=== PATIENT | male | born 1980 | race Two or more races ===

== ENCOUNTER 2023-05-23 14:20 | Inpatient (IN) | payer OTHER, SELFPAY ==
[2023-05-23 14:43] VITALS: BP 166/102; PULSE 71; RESP 20; TEMP 36.5; O2SAT 97
[2023-05-23 17:46] VITALS: BP 167/92; PULSE 72; RESP 18; TEMP 36.2; O2SAT 97
--- NOTE | 2023-05-23 18:06 | HO.PM.IMCN ---
History of Present Illness Data of Consult Service Date: 05/23/23 Requesting physician: Arsen Montano Primary Care Provider: Unknown Physician HPI Reason for consult: medical h&p 42-year-old male with history of lot-mudrwtn-xwivzgiau type 2 diabetes, hypertension, mild intermittent asthma, chronic low back pain with radiculopathy, and polysubstance abuse admitted to Psychiatry with consult placed to Hospital Medicine for medical H&P. He is reporting pain in the right hip which he states is chronic radiating from the low back. Denies any radiation into the distal lower extremity. No associated weakness, paresthesias, saddle anesthesia, bowel/bladder dysfunction. He does smoke 1 pack of cigarettes on a daily basis and is in inhaled cocaine and heroin user. Denies having ever used IV drugs. Well at [facility] ED, tox screen positive for opiates, fentanyl, cocaine, THC. Hematology studies unremarkable. Potassium was slightly elevated at 5.8 (5.5 upper limit of normal), but renal function was normal. EKG showed normal sinus rhythm, rate [address]/T-wave abnormality. Review of Systems Review of Systems: General: No fevers, malaise, unintentional weight loss HEENT: No blurred vision, diplopia. No sore throat, nasal congestion, rhinorrhea, sinus pain, ear pain Cardiovascular: No chest pain, palpitations, or leg edema Respiratory: No shortness of breath, wheezing, cough GI: No abdominal pain, nausea, vomiting, diarrhea, constipation, melena, hematochezia : No dysuria, hematuria, increased urinary frequency, decreased urinary output MSK: No myalgia, back pain. +hip pain Neuro: No headaches, weakness, paresthesias Skin: No rashes or lesions [facility] Medical History Asthma Chronic low back pain Cigarette smoker Hypertension Non-insulin dependent type 2 diabetes mellitus Polysubstance abuse Social History Advance Directives: No Advance Directives Information Provided: No Meds Allergies Allergy/AdvReac Type Severity Reaction Status Date / Time No Known Allergies Allergy Verified 05/23/23 16:43 Active Medications: Current Medications Acetaminophen (Acetaminophen 325 Mg Tablet) 650 mg PO Q6H PRN PRN Reason: Headache/Pain Mild Scale (1-3) Al Hydroxide/Mg Hydroxide (Magnesium Hydrox/Alum Hydrox 30 Ml Oral.Susp) 30 ml PO Q6H PRN PRN Reason: Heartburn/Nausea Amlodipine Besylate (Amlodipine Besylate 10 Mg Tablet) 10 mg PO BEDTIME CALLIE; Protocol Bupropion HCl (Bupropion Hcl 100 Mg Tablet) 100 mg PO BID@0800,1500 [facility] Dextrose (Dextrose 50 % 25 Gm/50 Ml Syringe) 25 gm IVPUSH Q15M PRN; Protocol PRN Reason: per Hypoglycemia Standing Ord. Gabapentin (Gabapentin 300 Mg Capsule) 300 mg PO TID [facility] Glucose (Glucose Gel 15 Gm Gel..Gram.) 15 gm PO Q15M PRN; Protocol PRN Reason: per Hypoglycemia Standing Ord. Hydroxyzine HCl (Hydroxyzine Hcl 50 Mg Tablet) 50 mg PO Q6H PRN PRN Reason: Anxiety Insulin Human Lispro (Insulin Lispro 100 Unit/Ml 3 Ml Vial) 0 unit SUBCUT QIDACHS [facility]; Protocol Magnesium Hydroxide (Milk Of Magnesia 30 Ml Oral.Susp) 30 ml PO DAILY PRN PRN Reason: Constipation Metformin HCl (Metformin Hcl 500 Mg Tablet) 500 mg PO BIDWM [facility] Omeprazole (Omeprazole 40 Mg Capsule.Dr) 40 mg PO DAILY@0630 [facility] Trazodone HCl (Trazodone Hcl 50 Mg Tablet) 50 mg PO BEDTIME MRX1 PRN PRN Reason: Insomnia Trimethoprim/Sulfamethoxazole (Sulfamethox/Trimeth 800/160 Tablet) 1 tab PO BID [facility] Home Medications Medication Instructions Recorded Confirmed Last Taken Type amlodipine 5 mg tablet 10 mg PO DAILY 05/23/23 05/23/23 05/22/23 20:27 History chlorthalidone 25 mg tablet 25 mg PO DAILY 05/23/23 05/23/23 05/23/23 08:52 History gabapentin 300 mg capsule 300 mg PO TID 05/23/23 05/23/23 05/23/23 08:52 History metformin 500 mg tablet 500 mg PO BID 05/23/23 05/23/23 05/23/23 08:52 History Physical Exam Vital Signs and Narrative: Vital Signs: Last Vital Signs Temp 97.2 F 05/23/23 17:46 Pulse 72 05/23/23 17:46 Resp 18 05/23/23 17:46 BP 167/92 H 05/23/23 17:46 Pulse Ox 97 05/23/23 17:46 O2 Del Method Room Air 05/23/23 17:46 Constitutional - Awake and Alert, No apparent distress Eyes - PERRLA, EOMI Cardiovascular - S1S2, RRR, No edema Respiratory - Normal lung expansion, Normal respiratory effort, No respiratory distress, CTA bilaterally Gastrointestinal - NT / ND; +BS; No rebound or guarding Extremities - no calf tenderness bilaterally, no swelling Musculoskeletal - Normal inspection, normal ROM Skin - Warm/Dry Neurological - Alert & oriented x3, CN II-XII in tact, 5/ strength BUE and BLE Psychological - Appropriate affect Assessment and Plan (1) Routine medical exam: Status: Acute Plan 42-year-old male with history of ers-nbyoatb-biooxzyig type 2 diabetes, hypertension, mild intermittent asthma, chronic low back pain with radiculopathy, and polysubstance abuse admitted to Psychiatry with consult placed to Hospital Medicine for medical H&P. #Mood disorder -plan per psychiatry #Polysubstance abuse with opiate overdose -plan per psychiatry -No focal neuro deficits on exam, patient a&ox3 but does not recall events just prior to OD #HTN -Continue amlodipine PM, chlorthalidone 25mg am #Chronic LBP -radiates to right hip. -Continue gabapentin. Tylenol prn, lidocaine patches # xdf-iknsgyp-ggyojstet type 2 diabetes -POC glucose -recommend diabetic diet, consult on this -check A1c -continue metformin, Humalog on sliding scale for hyperglycemia Thank you for allowing me to participate in this consult. Signing off at this time. Please do not hesitate to call for further questions. Time Spent With Patient Time: Total time managing care of this patient today ____ minutes.
[2023-05-23 18:32] VITALS: BMI 31.6
[2023-05-23] MEDS: metFORMIN HCl 500 MG TABLET PO (18:43)
--- NOTE | 2023-05-23 19:01 | PC.ADMIT ---
Floyd Nevarez arrived to the unit at 1430, he signed conditional voluntary, upon approach he is calm and pleasant, he reports he does not recall events that led to hospitalization. He reports that when he is under pressure he tends to utilize Sniff heroine. He reports that all he remembers was a light and a voice that asked him Do you accept Ricardo Anil as your savior. Floyd is currently endorsing anxiety and depression, when asked if he had any thoughts of wanting to hurt self stated No, verbalized to look for staff if thoughts occur. Floyd is a diabetic, history of hypertension, he currently resides at a sober home, he reports [facility] has services [facility].
[2023-05-23 20:15] VITALS: BP 165/97; PULSE 66; RESP 16; TEMP 36.7; O2SAT 97
[2023-05-23] MEDS: amLODIPine Besylate 10 MG TABLET PO (20:35)
[2023-05-23] MEDS: Gabapentin 300 MG CAPSULE PO (20:35)
[2023-05-23] MEDS: Sulfamethox/Trimeth 800/160 TABLET 1 TAB PO (20:35)
[2023-05-24] MEDS: Acetaminophen 325 MG TABLET 650 MG PO ×3 (03:45→20:02)
[2023-05-24] MEDS: Omeprazole 40 MG CAPSULE.DR PO (06:10)
[2023-05-24] MEDS: metFORMIN HCl 500 MG TABLET PO ×2 (08:19→17:02)
[2023-05-24 08:20] VITALS: BP 162/90; PULSE 68; RESP 18; TEMP 36.1; O2SAT 98
[2023-05-24] MEDS: Sulfamethox/Trimeth 800/160 TABLET 1 TAB PO ×2 (08:20→21:31)
[2023-05-24] MEDS: Gabapentin 300 MG CAPSULE PO ×3 (08:20→21:31)
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
[2023-05-24] MEDS: Nicotine Polacrilex 2 MG GUM 4 MG BUCCAL (13:00)
[2023-05-24] MEDS: Nicotine 21 MG PATCH.TD24 TRANSDERMA (13:00)
--- NOTE | 2023-05-24 19:38 | PC.NURSE ---
Patient c/o pain with a golf ball sized lump under the skin in his right armpit. Patient said that it is painful; and he has a history of cysts that needed to be opened up and then take antibiotics. Dr. Hassan, technical communication teacher doctor, notified and non urgent consult to be ordered. Patient afebrile.
--- NOTE | 2023-05-24 20:48 | PM.EVENT ---
Event Note Date of Service: 05/24/23 Event Note: Patient with a history of recurrent axillary cysts/abscesses that also occurred in the perirectal area requiring antibiotics and incision and drainage historically tells me that he has had a large mass that is rapidly enlarging in the right axilla that started several days ago while at [facility] ED. Due to the increase in size, he was started on Bactrim which has been continued on M5. Despite this, he states this continues to enlarge and is very warm and painful. He denies any active drainage. He has been afebrile and vitals are stable. Unclear if this history is hidradenitis as sounds consistent, but no evidence of scarring in the axilla on exam. Recommend continuing bactim x 7 days and adding keflex 500mg qid. Strongly recommend warm compresses frequently throughout the day. CBC, CRP, ESR ordered. Will also place consult to general surgery for further management. Thank you for allowing me to participate in this consult. Signing off at this time. Please do not hesitate to call for further questions. Time Spent With Patient Time: Total time managing care of this patient today ____ minutes.
[2023-05-24 21:30] VITALS: BP 153/99; PULSE 97; RESP 17; TEMP 36.7
[2023-05-24] MEDS: cephALEXin 500 MG CAPSULE PO (21:31)
[2023-05-24] MEDS: amLODIPine Besylate 10 MG TABLET PO (21:32)
[2023-05-25] MEDS: cephALEXin 500 MG CAPSULE PO ×4 (04:18→20:40)
[2023-05-25 07:00] VITALS: BMI 31.8
[2023-05-25 07:59] LABS: MANUAL DIFF FLAG NO
[2023-05-25 08:03] LABS: Basophils Percent Auto 0.5 % (0-2); Eosinophils Absolute Auto 0.2 X10*3/uL (0.0-0.4); Hematocrit 45.7 % (42.0-52.0); Hemoglobin 15.6 g/dl (14.0-18.0); Imm Gran Abs Auto 0.04 X10*3/uL (0.00-0.03); Imm Gran Pct Auto 0.5 % (0.0-0.4); Lymphocytes Absolute Auto 1.7 X10*3/uL (1.2-4.9); Lymphocytes Percent Auto 19.6 % (20-40); Mean Corpuscular HGB Conc 34.1 g/dl (31.0-36.0); Mean Corpuscular Hemoglobin 29.4 pg (27.0-33.0); Mean Corpuscular Volume 86.1 fL (80.0-98.0); Mean Platelet Volume 10.7 fL (9.4-12.4); Monocytes Absolute Auto 0.6 X10*3/uL (0.1-1.2); Monocytes Percent Auto 7.3 % (2-11); Neutrophils Absolute Auto 6.1 x10*3/uL (2.0-8.3); Neutrophils Percent Auto 70.1 % (45-73); Platelet Count 213 X10*3/uL (160-400); Red Blood Count 5.31 X10*6/uL (4.60-5.80); Red Cell Distribution Width 13.9 % (11.0-16.0); White Blood Count 8.7 X10*3/uL (4.8-10.8)
[2023-05-25] MEDS: Sulfamethox/Trimeth 800/160 TABLET 1 TAB PO ×2 (08:25→20:40)
[2023-05-25] MEDS: Omeprazole 40 MG CAPSULE.DR PO (08:25)
[2023-05-25] MEDS: metFORMIN HCl 500 MG TABLET PO ×2 (08:26→16:40)
[2023-05-25] MEDS: Gabapentin 300 MG CAPSULE PO ×3 (08:26→20:40)
[2023-05-25 08:30] VITALS: BP 154/95; PULSE 77; RESP 18; TEMP 36.5; O2SAT 97
--- NOTE | 2023-05-25 10:06 | HO.PSYCHPN ---
Subjective Subjective Date of Service: 05/25/23 Reason For Visit: F32.9, F11.20, F14.20 Interim History: Met with patient; discussed with team patient reports feeling a little irritable today due to some interactions with staff. Says it reminds him of being in residential. He said he was able to walk away but did feel triggered. He said the rules do not make sense and are not clear which he finds difficult to navigate. He thinks he is feeling a little better but says he is up and down. Tolerating medications well. Asked for clonidine which he says was helpful in the past Mental Status Exam Mental Status Exam Narrative: Pt is alert and oriented; behavior is cooperative, friendly and calm; patient is not in distress; dressed in casual attire with unkempt hair but adequate hygiene, tattooed arms; mood is described as I do not know and affect congruent; eye contact appropriate; Speech is normal rate, volume and prosody and not pressured; no psychomotor retardation present; thought process is organized and goal directed; Thought content is on tx; otherwise pertinent to relevant topics and without any delusional content, paranoid ideations or grandiosity; denies any SI/HI. There is no evidence of perceptual disturbance. Patients insight and judgment fair Diagnostics Vital Signs (24Hr): Vital Signs - 24 hr 05/24/23 21:30 05/25/23 08:30 Temperature 98.0 F 97.7 F Pulse Rate 97 77 Respiratory Rate 17 18 Blood Pressure 153/99 H 154/95 H Pulse Oximetry 97 Oxygen Delivery Method Room Air BMI result Body Mass Index 31.6 Labs 05/25/23 07:35 05/24/23 08:26 Labs: Laboratory Results - last 48 hr 05/23/23 05/23/23 05/24/23 18:25 20:23 08:19 WBC RBC Hgb Hct MCV MCH MCHC RDW Plt Count MPV Immature Gran % (Auto) Neut % (Auto) Lymph % (Auto) [place] % (Auto) Eos % (Auto) Baso % (Auto) Lymph # (Auto) [place] # (Auto) Eos # (Auto) Baso # (Auto) Abs Immat Gran (auto) Absolute Neuts (auto) Absolute Nucleated RBC Nucleated RBC % (auto) ESR Sodium Potassium Chloride Carbon Dioxide Anion Gap BUN Creatinine 1.09 Estim Creat Clear Calc 105.6 Estimated GFR > 60 POC Glucose 99 134 H Fasting Glucose Calcium Total Bilirubin AST ALT Alkaline Phosphatase C-Reactive Protein Total Protein Albumin Triglycerides Cholesterol LDL Cholesterol, Calc HDL Cholesterol Vitamin B12 Folate TSH Free T4 05/24/23 05/24/23 05/24/23 08:26 08:26 12:20 WBC RBC Hgb Hct MCV MCH MCHC RDW Plt Count MPV Immature Gran % (Auto) Neut % (Auto) Lymph % (Auto) [place] % (Auto) Eos % (Auto) Baso % (Auto) Lymph # (Auto) [place] # (Auto) Eos # (Auto) Baso # (Auto) Abs Immat Gran (auto) Absolute Neuts (auto) Absolute Nucleated RBC Nucleated RBC % (auto) ESR Sodium 139 Potassium 4.2 Chloride 95 L Carbon Dioxide 35 H Anion Gap 13 BUN 11 Creatinine 1.25 Estim Creat Clear Calc 92.0 Estimated GFR > 60 POC Glucose 120 H Fasting Glucose 89 Calcium 10.3 H Total Bilirubin 0.7 AST 14 ALT 16 Alkaline Phosphatase 98 C-Reactive Protein Total Protein 8.5 H Albumin 4.5 Triglycerides 135 Cholesterol 161 LDL Cholesterol, Calc 94 HDL Cholesterol 40 Vitamin B12 < 148 L Folate 13.9 TSH 1.56 Free T4 0.99 05/24/23 05/24/23 05/24/23 16:53 20:18 21:05 WBC 10.0 RBC 5.58 Hgb 16.6 Hct 48.6 MCV 87.1 MCH 29.7 MCHC 34.2 RDW 13.9 Plt Count 222 MPV 10.8 Immature Gran % (Auto) 0.5 H Neut % (Auto) 77.8 H Lymph % (Auto) 15.6 L [place] % (Auto) 5.0 Eos % (Auto) 0.8 Baso % (Auto) 0.3 Lymph # (Auto) 1.6 [place] # (Auto) 0.5 Eos # (Auto) 0.1 Baso # (Auto) 0.0 Abs Immat Gran (auto) 0.05 H Absolute Neuts (auto) 7.8 Absolute Nucleated RBC 0.000 Nucleated RBC % (auto) 0.0 ESR Sodium Potassium Chloride Carbon Dioxide Anion Gap BUN Creatinine Estim Creat Clear Calc Estimated GFR POC Glucose 93 127 H Fasting Glucose Calcium Total Bilirubin AST ALT Alkaline Phosphatase C-Reactive Protein Total Protein Albumin Triglycerides Cholesterol LDL Cholesterol, Calc HDL Cholesterol Vitamin B12 Folate TSH Free T4 05/24/23 05/24/23 05/25/23 21:05 21:05 07:35 WBC 8.7 RBC 5.31 Hgb 15.6 Hct 45.7 MCV 86.1 MCH 29.4 MCHC 34.1 RDW 13.9 Plt Count 213 MPV 10.7 Immature Gran % (Auto) 0.5 H Neut % (Auto) 70.1 Lymph % (Auto) 19.6 L [place] % (Auto) 7.3 Eos % (Auto) 2.0 Baso % (Auto) 0.5 Lymph # (Auto) 1.7 [place] # (Auto) 0.6 Eos # (Auto) 0.2 Baso # (Auto) 0.0 Abs Immat Gran (auto) 0.04 H Absolute Neuts (auto) 6.1 Absolute Nucleated RBC 0.000 Nucleated RBC % (auto) 0.0 ESR 13 Sodium Potassium Chloride Carbon Dioxide Anion Gap BUN Creatinine Estim Creat Clear Calc Estimated GFR POC Glucose Fasting Glucose Calcium Total Bilirubin AST ALT Alkaline Phosphatase C-Reactive Protein 2.87 H Total Protein Albumin Triglycerides Cholesterol LDL Cholesterol, Calc HDL Cholesterol Vitamin B12 Folate TSH Free T4 05/25/23 08:21 WBC RBC Hgb Hct MCV MCH MCHC RDW Plt Count MPV Immature Gran % (Auto) Neut % (Auto) Lymph % (Auto) [place] % (Auto) Eos % (Auto) Baso % (Auto) Lymph # (Auto) [place] # (Auto) Eos # (Auto) Baso # (Auto) Abs Immat Gran (auto) Absolute Neuts (auto) Absolute Nucleated RBC Nucleated RBC % (auto) ESR Sodium Potassium Chloride Carbon Dioxide Anion Gap BUN Creatinine Estim Creat Clear Calc Estimated GFR POC Glucose 146 H Fasting Glucose Calcium Total Bilirubin AST ALT Alkaline Phosphatase C-Reactive Protein Total Protein Albumin Triglycerides Cholesterol LDL Cholesterol, Calc HDL Cholesterol Vitamin B12 Folate TSH Free T4 Medications Medications Current Medications Acetaminophen (Acetaminophen 325 Mg Tablet) 650 mg PO Q6H PRN PRN Reason: Headache/Pain Mild Scale (1-3) Last Admin: 05/24/23 20:02 Dose: 650 mg Al Hydroxide/Mg Hydroxide (Magnesium Hydrox/Alum Hydrox 30 Ml Oral.Susp) 30 ml PO Q6H PRN PRN Reason: Heartburn/Nausea Amlodipine Besylate (Amlodipine Besylate 10 Mg Tablet) 10 mg PO BEDTIME CALLIE; Protocol Last Admin: 05/24/23 21:32 Dose: 10 mg Buprenorphine/Naloxone (Buprenorphine/Naloxone 2/0.5mg Film) 1 film SUBLINGUAL BID@0900,1300 [facility] Last Admin: 05/25/23 08:26 Dose: 1 film Bupropion HCl (Bupropion Hcl Xl 300 Mg Tab.Er.24h) 300 mg PO DAILY [facility] Last Admin: 05/25/23 08:25 Dose: 300 mg Cephalexin HCl (Cephalexin 500 Mg Capsule) 500 mg PO Q6H [facility] Last Admin: 05/25/23 08:26 Dose: 500 mg Dextrose (Dextrose 50 % 25 Gm/50 Ml Syringe) 25 gm IVPUSH Q15M PRN; Protocol PRN Reason: per Hypoglycemia Standing Ord. Gabapentin (Gabapentin 300 Mg Capsule) 300 mg PO TID [facility] Last Admin: 05/25/23 08:26 Dose: 300 mg Glucose (Glucose Gel 15 Gm Gel..Gram.) 15 gm PO Q15M PRN; Protocol PRN Reason: per Hypoglycemia Standing Ord. Hydroxyzine HCl (Hydroxyzine Hcl 50 Mg Tablet) 50 mg PO Q6H PRN PRN Reason: Anxiety Ibuprofen (Ibuprofen 400 Mg Tablet) 400 mg PO Q6H PRN PRN Reason: Pain, Moderate(Pain Scale 4-6) Last Admin: 05/25/23 01:13 Dose: 400 mg Insulin Human Lispro (Insulin Lispro 100 Unit/Ml 3 Ml Vial) 0 unit SUBCUT QIDACHS [facility]; Protocol Last Admin: 05/25/23 08:37 Dose: Not Given Magnesium Hydroxide (Milk Of Magnesia 30 Ml Oral.Susp) 30 ml PO DAILY PRN PRN Reason: Constipation Metformin HCl (Metformin Hcl 500 Mg Tablet) 500 mg PO BIDWM [facility] Last Admin: 05/25/23 08:26 Dose: 500 mg Nicotine (Nicotine 21 Mg Patch.Td24) 21 mg TRANSDERMA DAILY PRN PRN Reason: smoking cessation Last Admin: 05/24/23 13:00 Dose: 21 mg Nicotine Polacrilex (Nicotine Polacrilex 2 Mg Gum) 4 mg BUCCAL Q2H PRN PRN Reason: nicotine cravings Last Admin: 05/24/23 13:00 Dose: 4 mg Omeprazole (Omeprazole 40 Mg Capsule.Dr) 40 mg PO DAILY@0630 [facility] Last Admin: 05/25/23 08:25 Dose: 40 mg Trazodone HCl (Trazodone Hcl 50 Mg Tablet) 50 mg PO BEDTIME MRX1 PRN PRN Reason: Insomnia Trimethoprim/Sulfamethoxazole (Sulfamethox/Trimeth 800/160 Tablet) 1 tab PO BID CALLIE Stop: 05/30/23 09:01 Last Admin: 05/25/23 08:25 Dose: 1 tab Allergies Allergies Allergy/AdvReac Type Severity Reaction Status Date / Time No Known Allergies Allergy Verified 05/23/23 16:43 Assessment & Plan Assessment & Plan (1) MDD (major depressive disorder), recurrent episode, moderate: Status: Acute Code(s): F33.1 - Major depressive disorder, recurrent, moderate (2) PTSD (post-traumatic stress disorder): Status: Acute Code(s): F43.10 - Post-traumatic stress disorder, unspecified (3) Cocaine use disorder: Status: Acute Code(s): F14.10 - Cocaine abuse, uncomplicated (4) Opioid use disorder: Status: Acute Code(s): F11.90 - Opioid use, unspecified, uncomplicated Plan Patient is a 42-year-old male with history of depression, PTSD who presents for depression and SI. Patient wants help with depression and cravings for cocaine and heroin; SI resolved Hospital course: 05/25 patient stabilizing; no SI; tolerating medications. Talking about his feelings. Continue treatment; says Suboxone helpful. Plan: CV Q 15 minute checks Change Wellbutrin to extended release and increased to 300 mg daily Continue Suboxone 2/0.5 mg b.i.d. for cravings; patient feels the need for help with cravings and staying sober but is wanting to avoid getting overly addicted to Suboxone Continue other home medications which he has been taking regularly -patient hypertensive but he says it is only has he missed recent antihypertensive dose; will monitor Reviewed labs from [facility] and LFTs, CBC, BUN/creatinine within normal limits; mildly elevated potassium Patient educated on: diagnosis, medication risk/benefits and therapeutic strategies Informed Consent: understands Reason for continued inpatient stay Substantial Risk for: stable for discharge Time Spent With Patient Time: Total time managing care of this patient today ____ minutes.
[2023-05-25 16:29] VITALS: BP 147/97; PULSE 97; RESP 18; TEMP 36; O2SAT 99
[2023-05-25] MEDS: Nicotine Polacrilex 2 MG GUM 4 MG BUCCAL (19:15)
[2023-05-25] MEDS: amLODIPine Besylate 10 MG TABLET PO (20:45)
[2023-05-26] MEDS: cephALEXin 500 MG CAPSULE PO ×4 (03:50→20:30)
[2023-05-26 08:15] VITALS: BP 144/81; PULSE 95; RESP 16; TEMP 36.8; O2SAT 98
[2023-05-26] MEDS: metFORMIN HCl 500 MG TABLET PO ×2 (08:30→16:28)
[2023-05-26] MEDS: Gabapentin 300 MG CAPSULE PO ×3 (08:30→20:30)
[2023-05-26] MEDS: Omeprazole 40 MG CAPSULE.DR PO (08:30)
[2023-05-26] MEDS: Sulfamethox/Trimeth 800/160 TABLET 1 TAB PO ×2 (08:30→20:30)
[2023-05-26] MEDS: Nicotine 21 MG PATCH.TD24 TRANSDERMA (08:31)
--- NOTE | 2023-05-26 09:27 | HO.PSYCHPN ---
Subjective Subjective Date of Service: 05/26/23 Reason For Visit: F32.9, F11.20, F14.20 Interim History: Met with patient; discussed with team Patient reports depression is abating some, however he still quite anxious and struggling with lots of emotions. Patient tearful as he explains worries about coping once discharged, fearful about his recent overdose and not wanting it to be repeated. Feels he starting to get use to the medications and learning to utilize coping skills. Patient feels that groups have been helpful. Mental Status Exam Mental Status Exam Narrative: Pt is alert and oriented; behavior is cooperative, calm; patient is not in distress; dressed in casual attire with adequate hygiene, tattooed arms; mood is described as worried and affect congruent, intermittently tearful; eye contact appropriate; Speech is normal rate, volume and prosody and not pressured; no psychomotor retardation present; thought process is organized and goal directed; Thought content is on tx; otherwise pertinent to relevant topics and without any delusional content, paranoid ideations or grandiosity; denies any SI/HI. There is no evidence of perceptual disturbance. Patients insight and judgment fair Diagnostics Vital Signs (24Hr): Vital Signs - 24 hr 05/25/23 16:29 Temperature 96.8 F Pulse Rate 97 Respiratory Rate 18 Blood Pressure 147/97 H Pulse Oximetry 99 Oxygen Delivery Method Room Air BMI result Body Mass Index 31.8 Labs 05/25/23 07:35 05/24/23 08:26 Labs: Laboratory Results - last 48 hr 05/24/23 05/24/23 05/24/23 08:19 08:26 08:26 WBC RBC Hgb Hct MCV MCH MCHC RDW Plt Count MPV Immature Gran % (Auto) Neut % (Auto) Lymph % (Auto) [place] % (Auto) Eos % (Auto) Baso % (Auto) Lymph # (Auto) [place] # (Auto) Eos # (Auto) Baso # (Auto) Abs Immat Gran (auto) Absolute Neuts (auto) Absolute Nucleated RBC Nucleated RBC % (auto) ESR POC Glucose 134 H C-Reactive Protein Vitamin B12 < 148 L Folate 13.9 TSH 1.56 Free T4 0.99 05/24/23 05/24/23 05/24/23 12:20 16:53 20:18 WBC RBC Hgb Hct MCV MCH MCHC RDW Plt Count MPV Immature Gran % (Auto) Neut % (Auto) Lymph % (Auto) [place] % (Auto) Eos % (Auto) Baso % (Auto) Lymph # (Auto) [place] # (Auto) Eos # (Auto) Baso # (Auto) Abs Immat Gran (auto) Absolute Neuts (auto) Absolute Nucleated RBC Nucleated RBC % (auto) ESR POC Glucose 120 H 93 127 H C-Reactive Protein Vitamin B12 Folate TSH Free T4 05/24/23 05/24/23 05/24/23 21:05 21:05 21:05 WBC 10.0 RBC 5.58 Hgb 16.6 Hct 48.6 MCV 87.1 MCH 29.7 MCHC 34.2 RDW 13.9 Plt Count 222 MPV 10.8 Immature Gran % (Auto) 0.5 H Neut % (Auto) 77.8 H Lymph % (Auto) 15.6 L [place] % (Auto) 5.0 Eos % (Auto) 0.8 Baso % (Auto) 0.3 Lymph # (Auto) 1.6 [place] # (Auto) 0.5 Eos # (Auto) 0.1 Baso # (Auto) 0.0 Abs Immat Gran (auto) 0.05 H Absolute Neuts (auto) 7.8 Absolute Nucleated RBC 0.000 Nucleated RBC % (auto) 0.0 ESR 13 POC Glucose C-Reactive Protein 2.87 H Vitamin B12 Folate TSH Free T4 05/25/23 05/25/23 05/25/23 07:35 08:21 16:42 WBC 8.7 RBC 5.31 Hgb 15.6 Hct 45.7 MCV 86.1 MCH 29.4 MCHC 34.1 RDW 13.9 Plt Count 213 MPV 10.7 Immature Gran % (Auto) 0.5 H Neut % (Auto) 70.1 Lymph % (Auto) 19.6 L [place] % (Auto) 7.3 Eos % (Auto) 2.0 Baso % (Auto) 0.5 Lymph # (Auto) 1.7 [place] # (Auto) 0.6 Eos # (Auto) 0.2 Baso # (Auto) 0.0 Abs Immat Gran (auto) 0.04 H Absolute Neuts (auto) 6.1 Absolute Nucleated RBC 0.000 Nucleated RBC % (auto) 0.0 ESR POC Glucose 146 H 115 C-Reactive Protein Vitamin B12 Folate TSH Free T4 05/25/23 05/26/23 20:57 08:52 WBC RBC Hgb Hct MCV MCH MCHC RDW Plt Count MPV Immature Gran % (Auto) Neut % (Auto) Lymph % (Auto) [place] % (Auto) Eos % (Auto) Baso % (Auto) Lymph # (Auto) [place] # (Auto) Eos # (Auto) Baso # (Auto) Abs Immat Gran (auto) Absolute Neuts (auto) Absolute Nucleated RBC Nucleated RBC % (auto) ESR POC Glucose 167 H 138 H C-Reactive Protein Vitamin B12 Folate TSH Free T4 Medications Medications Current Medications Acetaminophen (Acetaminophen 325 Mg Tablet) 650 mg PO Q6H PRN PRN Reason: Headache/Pain Mild Scale (1-3) Last Admin: 05/24/23 20:02 Dose: 650 mg Al Hydroxide/Mg Hydroxide (Magnesium Hydrox/Alum Hydrox 30 Ml Oral.Susp) 30 ml PO Q6H PRN PRN Reason: Heartburn/Nausea Amlodipine Besylate (Amlodipine Besylate 10 Mg Tablet) 10 mg PO BEDTIME CALLIE; Protocol Last Admin: 05/25/23 20:45 Dose: 10 mg Buprenorphine/Naloxone (Buprenorphine/Naloxone 2/0.5mg Film) 1 film SUBLINGUAL BID@0900,1700 [facility] Last Admin: 05/26/23 08:30 Dose: 1 film Bupropion HCl (Bupropion Hcl Xl 300 Mg Tab.Er.24h) 300 mg PO DAILY [facility] Last Admin: 05/26/23 08:30 Dose: 300 mg Cephalexin HCl (Cephalexin 500 Mg Capsule) 500 mg PO Q6H [facility] Last Admin: 05/26/23 08:30 Dose: 500 mg Clonidine HCl (Clonidine Hcl 0.1 Mg Tablet) 0.1 mg PO Q4H PRN; Protocol PRN Reason: anxiety Dextrose (Dextrose 50 % 25 Gm/50 Ml Syringe) 25 gm IVPUSH Q15M PRN; Protocol PRN Reason: per Hypoglycemia Standing Ord. Gabapentin (Gabapentin 300 Mg Capsule) 300 mg PO TID [facility] Last Admin: 05/26/23 08:30 Dose: 300 mg Glucose (Glucose Gel 15 Gm Gel..Gram.) 15 gm PO Q15M PRN; Protocol PRN Reason: per Hypoglycemia Standing Ord. Hydroxyzine HCl (Hydroxyzine Hcl 50 Mg Tablet) 50 mg PO Q6H PRN PRN Reason: Anxiety Ibuprofen (Ibuprofen 400 Mg Tablet) 400 mg PO Q6H PRN PRN Reason: Pain, Moderate(Pain Scale 4-6) Last Admin: 05/25/23 20:47 Dose: 400 mg Insulin Human Lispro (Insulin Lispro 100 Unit/Ml 3 Ml Vial) 0 unit SUBCUT QIDACHS [facility]; Protocol Last Admin: 05/26/23 08:59 Dose: Not Given Magnesium Hydroxide (Milk Of Magnesia 30 Ml Oral.Susp) 30 ml PO DAILY PRN PRN Reason: Constipation Last Admin: 05/25/23 13:00 Dose: 30 ml Metformin HCl (Metformin Hcl 500 Mg Tablet) 500 mg PO BIDWM [facility] Last Admin: 05/26/23 08:30 Dose: 500 mg Nicotine (Nicotine 21 Mg Patch.Td24) 21 mg TRANSDERMA DAILY PRN PRN Reason: smoking cessation Last Admin: 05/26/23 08:31 Dose: 21 mg Nicotine Polacrilex (Nicotine Polacrilex 2 Mg Gum) 4 mg BUCCAL Q2H PRN PRN Reason: nicotine cravings Last Admin: 05/25/23 19:15 Dose: 4 mg Omeprazole (Omeprazole 40 Mg Capsule.Dr) 40 mg PO DAILY@0630 [facility] Last Admin: 05/26/23 08:30 Dose: 40 mg Trazodone HCl (Trazodone Hcl 50 Mg Tablet) 50 mg PO BEDTIME MRX1 PRN PRN Reason: Insomnia Trimethoprim/Sulfamethoxazole (Sulfamethox/Trimeth 800/160 Tablet) 1 tab PO BID [facility] Stop: 05/30/23 09:01 Last Admin: 05/26/23 08:30 Dose: 1 tab Allergies Allergies Allergy/AdvReac Type Severity Reaction Status Date / Time No Known Allergies Allergy Verified 05/23/23 16:43 Assessment & Plan Assessment & Plan (1) MDD (major depressive disorder), recurrent episode, moderate: Status: Acute Code(s): F33.1 - Major depressive disorder, recurrent, moderate (2) PTSD (post-traumatic stress disorder): Status: Acute Code(s): F43.10 - Post-traumatic stress disorder, unspecified (3) Cocaine use disorder: Status: Acute Code(s): F14.10 - Cocaine abuse, uncomplicated (4) Opioid use disorder: Status: Acute Code(s): F11.90 - Opioid use, unspecified, uncomplicated Plan Patient is a 42-year-old male with history of depression, PTSD who presents for depression and SI. Patient wants help with depression and cravings for cocaine and heroin; SI resolved Hospital course: 05/25 patient stabilizing; no SI; tolerating medications. Talking about his feelings. Continue treatment; says Suboxone helpful. 05/26 patient reports depression is lessening however he still very anxious and worried about being able to cope post discharge; patient emotional and feeling a little overwhelmed by navigating his emotions. He is going to groups, forthcoming in interviews and trying to utilize coping skills that he is learning on the unit. At this time patient is at high risk for relapse and decompensation were he to be discharged. He should remain on the unit for further stabilization and possible medication management, considering increasing Wellbutrin. Will continue with Wellbutrin at current dose for now and consider whether not to increase after few days. Plan: CV Q 15 minute checks Change Wellbutrin to extended release and increased to 300 mg daily Continue Suboxone 2/0.5 mg b.i.d. for cravings; patient feels the need for help with cravings and staying sober but is wanting to avoid getting overly addicted to Suboxone Continue other home medications which he has been taking regularly -patient hypertensive but he says it is only has he missed recent antihypertensive dose; will monitor Reviewed labs from [facility] and LFTs, CBC, BUN/creatinine within normal limits; mildly elevated potassium Patient educated on: diagnosis, medication risk/benefits and therapeutic strategies Informed Consent: understands Reason for continued inpatient stay Substantial Risk for: rapid decompensation Time Spent With Patient Time: Total time managing care of this patient today ____ minutes.
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
[2023-05-26] MEDS: cloNIDine HCL 0.1 MG TABLET PO ×2 (12:15→23:12)
[2023-05-26 17:37] VITALS: BP 143/93; PULSE 115; RESP 18; TEMP 36.7; O2SAT 96
[2023-05-26] MEDS: Nicotine Polacrilex 2 MG GUM 4 MG BUCCAL (17:49)
[2023-05-26 20:20] VITALS: BP 140/88; PULSE 101; RESP 18; O2SAT 96
[2023-05-26] MEDS: amLODIPine Besylate 10 MG TABLET PO (20:31)
[2023-05-26 23:10] VITALS: BP 159/92; PULSE 88; RESP 20; O2SAT 97
[2023-05-27] MEDS: cephALEXin 500 MG CAPSULE PO ×4 (03:20→19:44)
[2023-05-27] MEDS: Omeprazole 40 MG CAPSULE.DR PO (06:43)
[2023-05-27] MEDS: Gabapentin 300 MG CAPSULE PO ×3 (08:24→19:43)
[2023-05-27] MEDS: metFORMIN HCl 500 MG TABLET PO ×2 (08:24→16:33)
[2023-05-27] MEDS: Sulfamethox/Trimeth 800/160 TABLET 1 TAB PO ×2 (08:24→19:43)
[2023-05-27 08:30] VITALS: BP 122/69; PULSE 89; RESP 18; TEMP 36.3; O2SAT 96
--- NOTE | 2023-05-27 10:06 | HO.PSYCHPN ---
Subjective Subjective Date of Service: 05/27/23 Reason For Visit: F32.9, F11.20, F14.20 Subjective Notes: Conditional Voluntary Healthcare Proxy: No Guardianship: No Medical Problems Affecting Mental Status: No Medication Compliance: Yes Side effects from medications: Yes (feels a bit geared up on wellbutrin making sleep a bit hard) Attending Groups: Intermittent Review of Systems Acute medical concerns: No has diabetes will check hba1c Medical Review of Systems: unchanged Mental Status Exam Mental Status Exam Patient Appearance: Well Grooomed and Appropriate Patient Orientation: Person, Place, Time and Situation Level of Consciousness: Awake and Appropriate Patient Behavior: Appropriate and Cooperative Mood Description: Calm Affect Description: Appropriate Patient Cognition Impaired: No Ability to Follow Directions: Good Speech Pattern: Clear Hallucinations: None Delusions: Not Present Thought Process: Intact Thought Content: positive for Intact Depressive Symptoms: Difficulty Sleeping Abnormal Motor Activity Signs and Symptoms: Restlessness Judgement: Good Diagnostics Vital Signs (24Hr): Vital Signs - 24 hr 05/26/23 17:37 05/26/23 20:20 05/26/23 23:10 Temperature 98.0 F Pulse Rate 115 H 101 H 88 Respiratory Rate 18 18 20 Blood Pressure 143/93 H 140/88 H 159/92 H Pulse Oximetry 96 96 97 Oxygen Delivery Method Room Air Room Air Room Air 05/27/23 08:30 Temperature 97.3 F Pulse Rate 89 Respiratory Rate 18 Blood Pressure 122/69 Pulse Oximetry 96 Oxygen Delivery Method Room Air BMI result Body Mass Index 31.8 Labs 05/25/23 07:35 05/24/23 08:26 Labs: Laboratory Results - last 48 hr 05/25/23 05/25/23 05/26/23 16:42 20:57 08:52 POC Glucose 115 167 H 138 H 05/26/23 05/26/23 05/26/23 11:51 15:17 19:59 POC Glucose 143 H 135 H 131 H 05/27/23 08:05 POC Glucose 160 H Medications Medications Current Medications Acetaminophen (Acetaminophen 325 Mg Tablet) 650 mg PO Q6H PRN PRN Reason: Headache/Pain Mild Scale (1-3) Last Admin: 05/24/23 20:02 Dose: 650 mg Al Hydroxide/Mg Hydroxide (Magnesium Hydrox/Alum Hydrox 30 Ml Oral.Susp) 30 ml PO Q6H PRN PRN Reason: Heartburn/Nausea Amlodipine Besylate (Amlodipine Besylate 10 Mg Tablet) 10 mg PO BEDTIME [facility]; Protocol Last Admin: 05/26/23 20:31 Dose: 10 mg Bisacodyl (Bisacodyl 5 Mg Tablet.Dr) 10 mg PO BEDTIME PRN PRN Reason: Constipation Buprenorphine/Naloxone (Buprenorphine/Naloxone 2/0.5mg Film) 1 film SUBLINGUAL BID@0900,1700 [facility] Last Admin: 05/27/23 08:24 Dose: 1 film Bupropion HCl (Bupropion Hcl Xl 300 Mg Tab.Er.24h) 300 mg PO DAILY [facility] Last Admin: 05/27/23 08:24 Dose: 300 mg Cephalexin HCl (Cephalexin 500 Mg Capsule) 500 mg PO Q6H [facility] Last Admin: 05/27/23 08:24 Dose: 500 mg Clonidine HCl (Clonidine Hcl 0.1 Mg Tablet) 0.1 mg PO Q4H PRN; Protocol PRN Reason: anxiety Last Admin: 05/26/23 23:12 Dose: 0.1 mg Dextrose (Dextrose 50 % 25 Gm/50 Ml Syringe) 25 gm IVPUSH Q15M PRN; Protocol PRN Reason: per Hypoglycemia Standing Ord. Docusate Sodium (Docusate Sodium 100 Mg Capsule) 100 mg PO BEDTIME PRN PRN Reason: Constipation Gabapentin (Gabapentin 300 Mg Capsule) 300 mg PO TID [facility] Last Admin: 05/27/23 08:24 Dose: 300 mg Glucose (Glucose Gel 15 Gm Gel..Gram.) 15 gm PO Q15M PRN; Protocol PRN Reason: per Hypoglycemia Standing Ord. Hydroxyzine HCl (Hydroxyzine Hcl 50 Mg Tablet) 50 mg PO Q6H PRN PRN Reason: Anxiety Ibuprofen (Ibuprofen 400 Mg Tablet) 400 mg PO Q6H PRN PRN Reason: Pain, Moderate(Pain Scale 4-6) Last Admin: 05/25/23 20:47 Dose: 400 mg Insulin Human Lispro (Insulin Lispro 100 Unit/Ml 3 Ml Vial) 0 unit SUBCUT QIDACHS [facility]; Protocol Last Admin: 05/27/23 08:29 Dose: 2 unit Magnesium Hydroxide (Milk Of Magnesia 30 Ml Oral.Susp) 30 ml PO DAILY PRN PRN Reason: Constipation Last Admin: 05/25/23 13:00 Dose: 30 ml Metformin HCl (Metformin Hcl 500 Mg Tablet) 500 mg PO BIDWM [facility] Last Admin: 05/27/23 08:24 Dose: 500 mg Nicotine (Nicotine 21 Mg Patch.Td24) 21 mg TRANSDERMA DAILY PRN PRN Reason: smoking cessation Last Admin: 05/26/23 08:31 Dose: 21 mg Nicotine Polacrilex (Nicotine Polacrilex 2 Mg Gum) 4 mg BUCCAL Q2H PRN PRN Reason: nicotine cravings Last Admin: 05/26/23 17:49 Dose: 4 mg Omeprazole (Omeprazole 40 Mg Capsule.Dr) 40 mg PO DAILY@0630 [facility] Last Admin: 05/27/23 06:43 Dose: 40 mg Trazodone HCl (Trazodone Hcl 50 Mg Tablet) 50 mg PO BEDTIME MRX1 PRN PRN Reason: Insomnia Trimethoprim/Sulfamethoxazole (Sulfamethox/Trimeth 800/160 Tablet) 1 tab PO BID [facility] Stop: 05/30/23 09:01 Last Admin: 05/27/23 08:24 Dose: 1 tab Allergies Allergies Allergy/AdvReac Type Severity Reaction Status Date / Time No Known Allergies Allergy Verified 05/23/23 16:43 Assessment & Plan Assessment & Plan (1) MDD (major depressive disorder), recurrent episode, moderate: Status: Acute Code(s): F33.1 - Major depressive disorder, recurrent, moderate (2) Cellulitis of right axilla: Status: Acute Code(s): L03.111 - Cellulitis of right axilla (3) Non-insulin dependent type 2 diabetes mellitus: Status: Acute Code(s): E11.9 - Type 2 diabetes mellitus without complications Assessment and Plan: check hba1c, Plan 42 year old male admitted to for MDD, SI, substance abuse with c/o painful right axillary swelling. May be infected epidermal inclusion cyst vs hidradenitis suppurativa. Either way, recommend continuing antibiotic therapy for now without I&D as he seems to be improving. There is a small amount of fluctuance of the axilla but this appears to be draining via the small wound opening. Dry sterile gauze applied which can be changed daily and as needed. Continue warm compresses. If there is no further improvement or he worsens, the area can be drained. Discussed diabetes mellitus and importance of tight blood sugar control in healing, prevention of worsening infection. Walkko addendum 05/27/23 Agree with the above plan. Continue antibiotics and local care. After the inflammation settles down, about 50% of these patients will have a persistent cyst that will need to be excised on an outpatient basis. Patient educated on: medication risk/benefits Informed Consent: understands Reason for continued inpatient stay Substantial Risk for: inability to function, rapid decompensation and med/psych decompensation Time Spent With Patient Time: Total time managing care of this patient today ____ minutes.
[2023-05-27] MEDS: Nicotine 21 MG PATCH.TD24 TRANSDERMA (13:00)
[2023-05-27] MEDS: Nicotine Polacrilex 2 MG GUM 4 MG BUCCAL ×3 (13:39→20:47)
[2023-05-27] MEDS: cloNIDine HCL 0.1 MG TABLET PO ×2 (14:10→19:43)
[2023-05-27 19:38] VITALS: BP 164/97; PULSE 103; TEMP 36.4
[2023-05-27] MEDS: amLODIPine Besylate 10 MG TABLET PO (19:43)
[2023-05-28] MEDS: cephALEXin 500 MG CAPSULE PO ×4 (03:08→20:03)
[2023-05-28] MEDS: Omeprazole 40 MG CAPSULE.DR PO (04:52)
[2023-05-28 08:00] VITALS: BP 113/59; PULSE 67; RESP 18; TEMP 36.7; O2SAT 97
[2023-05-28 08:01] LABS: Estimated Average Glucose 103 mg/dL; Hemoglobin A1c % 5.2 %
[2023-05-28] MEDS: buPROPion HCL 100 MG TABLET 200 MG PO (09:12)
[2023-05-28] MEDS: Gabapentin 300 MG CAPSULE PO ×3 (09:13→20:04)
[2023-05-28] MEDS: Sulfamethox/Trimeth 800/160 TABLET 1 TAB PO ×2 (09:13→20:04)
[2023-05-28] MEDS: metFORMIN HCl 500 MG TABLET PO ×2 (09:13→16:09)
--- NOTE | 2023-05-28 10:30 | HO.PSYCHPN ---
Subjective Subjective Date of Service: 05/28/23 Reason For Visit: F32.9, F11.20, F14.20 Subjective Notes: Conditional Voluntary Interim History: Pt reporting that would be suicidal if he is dced on monday- doesn't feel ready for dc- also co ongoing cravings and requested inc in suboxone- as he was started on lower dose- Medication Compliance: Yes Side effects from medications: No Attending Groups: Yes Review of Systems abscess healing- sugars in fair control Mental Status Exam Mental Status Exam Patient Appearance: Well Grooomed and Appropriate Patient Orientation: Person, Place, Time and Situation Level of Consciousness: Awake and Appropriate Patient Behavior: Appropriate and Cooperative Mood Description: Calm Affect Description: Appropriate Patient Cognition Impaired: No Ability to Follow Directions: Good Speech Pattern: Clear Hallucinations: None Delusions: Not Present Thought Process: Intact Thought Content: positive for Intact and positive for Suicidal Ideation Depressive Symptoms: Difficulty Sleeping Abnormal Motor Activity Signs and Symptoms: Restlessness Judgement: Good Diagnostics Vital Signs (24Hr): Vital Signs - 24 hr 05/27/23 19:38 Temperature 97.5 F Pulse Rate 103 H Blood Pressure 164/97 H BMI result Body Mass Index 31.8 Labs 05/25/23 07:35 05/24/23 08:26 Labs: Laboratory Results - last 48 hr 05/26/23 05/26/23 05/26/23 11:51 15:17 19:59 POC Glucose 143 H 135 H 131 H Estimat Average Glucose Hemoglobin A1c % 05/27/23 05/27/23 05/27/23 08:05 12:08 16:30 POC Glucose 160 H 125 H 138 H Estimat Average Glucose Hemoglobin A1c % 05/27/23 05/28/23 05/28/23 20:19 07:41 08:46 POC Glucose 118 H 99 Estimat Average Glucose 103 Hemoglobin A1c % 5.2 Medications Medications Current Medications Acetaminophen (Acetaminophen 325 Mg Tablet) 650 mg PO Q6H PRN PRN Reason: Headache/Pain Mild Scale (1-3) Last Admin: 05/24/23 20:02 Dose: 650 mg Al Hydroxide/Mg Hydroxide (Magnesium Hydrox/Alum Hydrox 30 Ml Oral.Susp) 30 ml PO Q6H PRN PRN Reason: Heartburn/Nausea Amlodipine Besylate (Amlodipine Besylate 10 Mg Tablet) 10 mg PO BEDTIME [facility]; Protocol Last Admin: 05/27/23 19:43 Dose: 10 mg Bisacodyl (Bisacodyl 5 Mg Tablet.Dr) 10 mg PO BEDTIME PRN PRN Reason: Constipation Buprenorphine/Naloxone (Buprenorphine/Naloxone 2/0.5mg Film) 1 film SUBLINGUAL BID [facility] Last Admin: 05/28/23 09:13 Dose: 1 film Bupropion HCl (Bupropion Hcl 100 Mg Tablet) 200 mg PO DAILY [facility] Last Admin: 05/28/23 09:12 Dose: 200 mg Cephalexin HCl (Cephalexin 500 Mg Capsule) 500 mg PO Q6H [facility] Last Admin: 05/28/23 09:13 Dose: 500 mg Clonidine HCl (Clonidine Hcl 0.1 Mg Tablet) 0.1 mg PO Q4H PRN; Protocol PRN Reason: anxiety Last Admin: 05/27/23 19:43 Dose: 0.1 mg Dextrose (Dextrose 50 % 25 Gm/50 Ml Syringe) 25 gm IVPUSH Q15M PRN; Protocol PRN Reason: per Hypoglycemia Standing Ord. Docusate Sodium (Docusate Sodium 100 Mg Capsule) 100 mg PO BEDTIME PRN PRN Reason: Constipation Gabapentin (Gabapentin 300 Mg Capsule) 300 mg PO TID [facility] Last Admin: 05/28/23 09:13 Dose: 300 mg Glucose (Glucose Gel 15 Gm Gel..Gram.) 15 gm PO Q15M PRN; Protocol PRN Reason: per Hypoglycemia Standing Ord. Hydroxyzine HCl (Hydroxyzine Hcl 50 Mg Tablet) 50 mg PO Q6H PRN PRN Reason: Anxiety Ibuprofen (Ibuprofen 400 Mg Tablet) 400 mg PO Q6H PRN PRN Reason: Pain, Moderate(Pain Scale 4-6) Last Admin: 05/28/23 01:01 Dose: 400 mg Insulin Human Lispro (Insulin Lispro 100 Unit/Ml 3 Ml Vial) 0 unit SUBCUT QIDACHS [facility]; Protocol Last Admin: 05/28/23 09:12 Dose: Not Given Magnesium Hydroxide (Milk Of Magnesia 30 Ml Oral.Susp) 30 ml PO DAILY PRN PRN Reason: Constipation Last Admin: 05/25/23 13:00 Dose: 30 ml Metformin HCl (Metformin Hcl 500 Mg Tablet) 500 mg PO BIDWM [facility] Last Admin: 05/28/23 09:13 Dose: 500 mg Nicotine (Nicotine 21 Mg Patch.Td24) 21 mg TRANSDERMA DAILY PRN PRN Reason: smoking cessation Last Admin: 05/27/23 13:00 Dose: 21 mg Nicotine Polacrilex (Nicotine Polacrilex 2 Mg Gum) 4 mg BUCCAL Q2H PRN PRN Reason: nicotine cravings Last Admin: 05/27/23 20:47 Dose: 4 mg Omeprazole (Omeprazole 40 Mg Capsule.Dr) 40 mg PO DAILY@0630 [facility] Last Admin: 05/28/23 04:52 Dose: 40 mg Trazodone HCl (Trazodone Hcl 50 Mg Tablet) 50 mg PO BEDTIME MRX1 PRN PRN Reason: Insomnia Last Admin: 05/28/23 01:01 Dose: 50 mg Trimethoprim/Sulfamethoxazole (Sulfamethox/Trimeth 800/160 Tablet) 1 tab PO BID [facility] Stop: 05/30/23 09:01 Last Admin: 05/28/23 09:13 Dose: 1 tab Allergies Allergies Allergy/AdvReac Type Severity Reaction Status Date / Time No Known Allergies Allergy Verified 05/23/23 16:43 Assessment & Plan Assessment & Plan (1) MDD (major depressive disorder), recurrent episode, moderate: Status: Acute Code(s): F33.1 - Major depressive disorder, recurrent, moderate (2) Cellulitis of right axilla: Status: Acute Code(s): L03.111 - Cellulitis of right axilla (3) Non-insulin dependent type 2 diabetes mellitus: Status: Acute Code(s): E11.9 - Type 2 diabetes mellitus without complications Assessment and Plan: check hba1c, Plan 42 year old male admitted to for MDD, SI, substance abuse with c/o painful right axillary swelling. May be infected epidermal inclusion cyst vs hidradenitis suppurativa. Either way, recommend continuing antibiotic therapy for now without I&D as he seems to be improving. There is a small amount of fluctuance of the axilla but this appears to be draining via the small wound opening. Dry sterile gauze applied which can be changed daily and as needed. Continue warm compresses. If there is no further improvement or he worsens, the area can be drained. Discussed diabetes mellitus and importance of tight blood sugar control in healing, prevention of worsening infection. Walkko addendum 05/27/23 Agree with the above plan. Continue antibiotics and local care. After the inflammation settles down, about 50% of these patients will have a persistent cyst that will need to be excised on an outpatient basis. 05/28 - patient inc si seems related to possible dc this monday- seems to be forming peer group and another patient mirroring each other on this presentation Patient educated on: therapeutic strategies Informed Consent: further education needed Reason for continued inpatient stay Substantial Risk for: harm to self, rapid decompensation and med/psych decompensation Time Spent With Patient Time: Total time managing care of this patient today ____ minutes.
[2023-05-28] MEDS: Nicotine Polacrilex 2 MG GUM 4 MG BUCCAL ×4 (11:40→21:14)
[2023-05-28] MEDS: Nicotine 21 MG PATCH.TD24 TRANSDERMA (11:40)
[2023-05-28] MEDS: cloNIDine HCL 0.1 MG TABLET PO ×2 (14:40→20:14)
[2023-05-28] MEDS: Buprenorphine/Naloxone 4/1 mg FILM 1 FILM SUBLINGUAL (17:03)
[2023-05-28 17:16] VITALS: BP 126/72; PULSE 91; RESP 16; TEMP 36.1; O2SAT 97
[2023-05-28] MEDS: amLODIPine Besylate 10 MG TABLET PO (20:02)
[2023-05-28] MEDS: hydrOXYzine HCL 50 MG TABLET PO (20:03)
[2023-05-29] MEDS: cephALEXin 500 MG CAPSULE PO ×4 (03:08→19:43)
[2023-05-29 06:00] VITALS: BP 101/54; PULSE 68; RESP 16; TEMP 36.2; O2SAT 97
[2023-05-29] MEDS: Omeprazole 40 MG CAPSULE.DR PO (06:12)
[2023-05-29] MEDS: Buprenorphine/Naloxone 4/1 mg FILM 1 FILM SUBLINGUAL ×2 (09:17→17:04)
[2023-05-29] MEDS: buPROPion HCL 100 MG TABLET 200 MG PO (09:19)
[2023-05-29] MEDS: Nicotine Polacrilex 2 MG GUM 4 MG BUCCAL ×4 (09:19→22:54)
[2023-05-29] MEDS: metFORMIN HCl 500 MG TABLET PO ×2 (09:20→17:04)
[2023-05-29] MEDS: Gabapentin 300 MG CAPSULE PO ×3 (09:20→19:44)
[2023-05-29] MEDS: Sulfamethox/Trimeth 800/160 TABLET 1 TAB PO ×2 (09:21→19:45)
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
[2023-05-29] MEDS: Nicotine 21 MG PATCH.TD24 TRANSDERMA (10:45)
[2023-05-29 13:05] VITALS: BP 156/94; PULSE 87
[2023-05-29] MEDS: cloNIDine HCL 0.1 MG TABLET PO ×3 (13:08→22:53)
[2023-05-29 16:30] VITALS: BP 122/67; PULSE 80; RESP 16; TEMP 36.2; O2SAT 98
[2023-05-29 17:37] LABS: Glucose, Whole Blood 123 mg/dL (60-115)
[2023-05-29] MEDS: amLODIPine Besylate 10 MG TABLET PO (19:44)
[2023-05-29 21:16] LABS: Glucose, Whole Blood 96 mg/dL (60-115)
[2023-05-30] MEDS: cephALEXin 500 MG CAPSULE PO ×4 (03:49→23:58)
[2023-05-30] MEDS: Omeprazole 40 MG CAPSULE.DR PO (06:46)
--- NOTE | 2023-05-30 07:28 | P.PNGS_ITS ---
Subjective Subjective Date of Service: 05/30/23 Patient reports: no new complaints, feels better and tolerating a regular diet Interval history: Pain in follow-up regarding his right axillary abscess. He denies any pain or drainage and notes that it is 100% improved. He otherwise denies additional problems with the exception of impending discharge that he does not feel he is ready for tomorrow. He is encouraged to discuss this concern with the staff. Physical Exam Vital Signs: Vital Signs: Last Vital Signs Temp 97.1 F 05/29/23 16:30 Pulse 80 05/29/23 16:30 Resp 16 05/29/23 16:30 BP 122/67 05/29/23 16:30 Pulse Ox 98 05/29/23 16:30 O2 Del Method Room Air 05/29/23 16:30 BMI result Body Mass Index 31.8 The patient is seen in room 509. He was resting but awake He is in no acute respiratory distress His right axilla soft with resolved induration. No fluctuance, erythema, tenderness is present. Overall, the abscess seems to have completely resolved Objective Data Active Medications Acetaminophen (Acetaminophen 325 Mg Tablet) 650 mg PO Q6H PRN PRN Reason: Headache/Pain Mild Scale (1-3) Last Admin: 05/24/23 20:02 Dose: 650 mg Documented By: MISBAH Al Hydroxide/Mg Hydroxide (Magnesium Hydrox/Alum Hydrox 30 Ml Oral.Susp) 30 ml PO Q6H PRN PRN Reason: Heartburn/Nausea Amlodipine Besylate (Amlodipine Besylate 10 Mg Tablet) 10 mg PO BEDTIME [facility]; Protocol Last Admin: 05/29/23 19:44 Dose: 10 mg Documented By: SHARIF Bisacodyl (Bisacodyl 5 Mg Tablet.Dr) 10 mg PO BEDTIME PRN PRN Reason: Constipation Buprenorphine/Naloxone (Buprenorphine/Naloxone 4/1 Mg Film) 1 film SUBLINGUAL BID@0900,1700 [facility] Last Admin: 05/29/23 17:04 Dose: 1 film Documented By: SHARIF Bupropion HCl (Bupropion Hcl 100 Mg Tablet) 200 mg PO DAILY [facility] Last Admin: 05/29/23 09:19 Dose: 200 mg Documented By: JADE Cephalexin HCl (Cephalexin 500 Mg Capsule) 500 mg PO Q6H [facility] Stop: 05/31/23 15:01 Last Admin: 05/30/23 03:49 Dose: 500 mg Documented By: BRANDONRINMichael Clonidine HCl (Clonidine Hcl 0.1 Mg Tablet) 0.1 mg PO Q4H PRN; Protocol PRN Reason: anxiety Last Admin: 05/29/23 22:53 Dose: 0.1 mg Documented By: SHARIF Dextrose (Dextrose 50 % 25 Gm/50 Ml Syringe) 25 gm IVPUSH Q15M PRN; Protocol PRN Reason: per Hypoglycemia Standing Ord. Docusate Sodium (Docusate Sodium 100 Mg Capsule) 100 mg PO BEDTIME PRN PRN Reason: Constipation Last Admin: 05/28/23 20:14 Dose: 100 mg Documented By: MALKA Gabapentin (Gabapentin 300 Mg Capsule) 300 mg PO TID [facility] Last Admin: 05/29/23 19:44 Dose: 300 mg Documented By: SHARIF Glucose (Glucose Gel 15 Gm Gel..Gram.) 15 gm PO Q15M PRN; Protocol PRN Reason: per Hypoglycemia Standing Ord. Hydroxyzine HCl (Hydroxyzine Hcl 50 Mg Tablet) 50 mg PO Q6H PRN PRN Reason: Anxiety Last Admin: 05/28/23 20:03 Dose: 50 mg Documented By: MALKA Ibuprofen (Ibuprofen 400 Mg Tablet) 400 mg PO Q6H PRN PRN Reason: Pain, Moderate(Pain Scale 4-6) Last Admin: 05/29/23 11:00 Dose: 400 mg Documented By: JADE Insulin Human Lispro (Insulin Lispro 100 Unit/Ml 3 Ml Vial) 0 unit SUBCUT [facility]; Protocol Last Admin: 05/29/23 22:02 Dose: Not Given Documented By: SHARIF Non-Admin Reason: No Insulin Coverage Magnesium Hydroxide (Milk Of Magnesia 30 Ml Oral.Susp) 30 ml PO DAILY PRN PRN Reason: Constipation Last Admin: 05/28/23 16:35 Dose: 30 ml Documented By: GENE Metformin HCl (Metformin Hcl 500 Mg Tablet) 500 mg PO BIDWM [facility] Last Admin: 05/29/23 17:04 Dose: 500 mg Documented By: SHARIF Nicotine (Nicotine 21 Mg Patch.Td24) 21 mg TRANSDERMA DAILY PRN PRN Reason: smoking cessation Last Admin: 05/29/23 10:45 Dose: 21 mg Documented By: JADE Nicotine Polacrilex (Nicotine Polacrilex 2 Mg Gum) 4 mg BUCCAL Q2H PRN PRN Reason: nicotine cravings Last Admin: 05/29/23 22:54 Dose: 4 mg Documented By: SHARIF Omeprazole (Omeprazole 40 Mg Capsule.) 40 mg PO DAILY@0630 [facility] Last Admin: 05/30/23 06:46 Dose: 40 mg Documented By: MORRINL Trazodone HCl (Trazodone Hcl 50 Mg Tablet) 50 mg PO BEDTIME MRX1 PRN PRN Reason: Insomnia Last Admin: 05/28/23 22:14 Dose: 50 mg Documented By: MARITZAWMICHAEL Trimethoprim/Sulfamethoxazole (Sulfamethox/Trimeth 800/160 Tablet) 1 tab PO BID [facility] Stop: 05/30/23 09:01 Last Admin: 05/29/23 19:45 Dose: 1 tab Documented By: SHARIF Labs 05/25/23 07:35 05/24/23 08:26 Labs: Laboratory Results - last 24 hr 05/29/23 05/29/23 05/29/23 09:15 12:31 17:27 POC Glucose 172 H 116 H 123 H 05/29/23 21:12 POC Glucose 96 Procedures Date of Service Date of Service: 05/30/23 Progress Note: A&P Assessment and plan (1) Cellulitis of right axilla: Status: Acute (2) Non-insulin dependent type 2 diabetes mellitus: Status: Acute (3) Opioid use disorder: Status: Acute (4) Cocaine use disorder: Status: Acute (5) PTSD (post-traumatic stress disorder): Status: Acute (6) MDD (major depressive disorder), recurrent episode, moderate: Status: Acute Plan The patient was provided with a business card with my phone up. Given his prior history of an infected sebaceous cyst in his left axilla the require definitive excision, I explained there is roughly a 50% chance of persisting cyst tissue that will need to be excised in about 6 weeks after the final inflammation has resolved. He is in agreement to follow up with me on an outpatient basis but again voiced concerns about being discharged in the next day or 2. Will sign off. Please call me if there are questions. Time Spent With Patient Time: Total time managing care of this patient today ____ minutes. Quality Stroke Does the patient have a stroke diagnosis?: No VTE Prior VTE?: No VTE Risk Level:: Surgical - low VTE Device Contraindication: Treatment Not Indicated VTE Drug Contraindication: Treatment Not Indicated
[2023-05-30 08:25] LABS: Glucose, Whole Blood 110 mg/dL (60-115)
[2023-05-30 09:12] VITALS: BP 115/65; PULSE 78; RESP 15; TEMP 37.2; O2SAT 97
[2023-05-30] MEDS: metFORMIN HCl 500 MG TABLET PO ×2 (09:13→17:29)
[2023-05-30] MEDS: Gabapentin 300 MG CAPSULE PO ×3 (09:13→23:58)
[2023-05-30] MEDS: Buprenorphine/Naloxone 4/1 mg FILM 1 FILM SUBLINGUAL ×2 (09:13→19:02)
[2023-05-30] MEDS: buPROPion HCL 100 MG TABLET 200 MG PO (09:13)
[2023-05-30] MEDS: Sulfamethox/Trimeth 800/160 TABLET 1 TAB PO (09:13)
[2023-05-30] MEDS: Acetaminophen 325 MG TABLET 650 MG PO (09:39)
[2023-05-30 09:53] LABS: MANUAL DIFF FLAG NO
[2023-05-30 10:06] LABS: Basophils Percent Auto 0.6 % (0-2); Eosinophils Absolute Auto 0.1 X10*3/uL (0.0-0.4); Hematocrit 42.5 % (42.0-52.0); Imm Gran Abs Auto 0.09 X10*3/uL (0.00-0.03); Imm Gran Pct Auto 1.3 % (0.0-0.4); Lymphocytes Absolute Auto 1.8 X10*3/uL (1.2-4.9); Lymphocytes Percent Auto 25.9 % (20-40); Mean Corpuscular HGB Conc 32.9 g/dl (31.0-36.0); Mean Corpuscular Hemoglobin 29.4 pg (27.0-33.0); Mean Corpuscular Volume 89.1 fL (80.0-98.0); Mean Platelet Volume 10.8 fL (9.4-12.4); Monocytes Absolute Auto 0.7 X10*3/uL (0.1-1.2); Monocytes Percent Auto 9.3 % (2-11); Neutrophils Absolute Auto 4.3 x10*3/uL (2.0-8.3); Neutrophils Percent Auto 60.9 % (45-73); Platelet Count 219 X10*3/uL (160-400); Red Blood Count 4.77 X10*6/uL (4.60-5.80); Red Cell Distribution Width 13.5 % (11.0-16.0); White Blood Count 7.1 X10*3/uL (4.8-10.8)
[2023-05-30 10:26] LABS: Anion Gap 13 (12-20); Blood Urea Nitrogen 16 mg/dL (9-16); Calcium 9.5 mg/dL (8.4-10.2); Carbon Dioxide 30 mmol/L (22-29); Chloride 100 mmol/L (96-108); Creatinine Clr Calc Pharmacy 92.2; Estimated Glomerular Filt Rate > 60; Glucose Random 90 mg/dL (60-115); Sodium 138 mmol/L (135-145)
[2023-05-30 10:35] LABS: Influenza A PCR NEGATIVE (Negative); Influenza B PCR NEGATIVE (Negative); Resp Syncy Virus RNA Qual PCR NEGATIVE (Negative); SARS COV2 PCR INHOUSE NEGATIVE (Negative)
[2023-05-30 12:02] LABS: IDNOW Serial# 08D9AD1C; Strep A Nucleic Acid Negative (Negative)
[2023-05-30 12:28] LABS: Glucose, Whole Blood 96 mg/dL (60-115)
[2023-05-30] MEDS: Nicotine 21 MG PATCH.TD24 TRANSDERMA (13:44)
[2023-05-30] MEDS: Nicotine Polacrilex 2 MG GUM 4 MG BUCCAL (13:45)
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
[2023-05-30 17:24] LABS: Glucose, Whole Blood 135 mg/dL (60-115)
[2023-05-30 18:00] VITALS: BP 131/85; PULSE 73; TEMP 36.6; O2SAT 96
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
[2023-05-30] MEDS: FLUoxetine HCl 10 MG CAPSULE PO (22:15)
[2023-05-30 22:29] LABS: Glucose, Whole Blood 133 mg/dL (60-115)
[2023-05-30] MEDS: amLODIPine Besylate 10 MG TABLET PO (23:57)
--- NOTE | 2023-05-31 00:02 | PC.NURSE ---
At 2210 patient came up to medication window to get medications. He then said I'll be back. He came back to the medication window with a large paper bag and said I promised I would not do anything and gave the bag to this fha underwriter. Inside the bag was the elastic from the fitted sheet off of his bed. A picture was sent to Dr. Ureña and patient was put on nursing 5 minute safety checks. No new orders received. Patient said he felt safe on the unit but was worried he might be discharged and he feels too raw with his feelings to feel safe out of a structured environment. He had expressed SI an HI as a potential reaction to his pent up rage. Patient said he knows he appears to be Okay but said he doesn't want to look like a cry baby and bring other people down.
[2023-05-31] MEDS: cephALEXin 500 MG CAPSULE PO ×3 (02:58→14:28)
[2023-05-31] MEDS: Omeprazole 40 MG CAPSULE.DR PO (06:31)
[2023-05-31 08:15] VITALS: BP 147/79; PULSE 69; RESP 16; TEMP 36.4; O2SAT 97
[2023-05-31 08:19] LABS: Glucose, Whole Blood 95 mg/dL (60-115)
[2023-05-31] MEDS: Buprenorphine/Naloxone 4/1 mg FILM 1 FILM SUBLINGUAL ×2 (08:29→16:43)
[2023-05-31] MEDS: metFORMIN HCl 500 MG TABLET PO ×2 (08:30→16:43)
[2023-05-31] MEDS: buPROPion HCL 100 MG TABLET 200 MG PO (08:30)
[2023-05-31] MEDS: Gabapentin 300 MG CAPSULE PO ×3 (08:30→20:37)
[2023-05-31] MEDS: FLUoxetine HCl 10 MG CAPSULE PO (08:30)
[2023-05-31] MEDS: Nicotine 21 MG PATCH.TD24 TRANSDERMA (09:19)
[2023-05-31] MEDS: hydrOXYzine HCL 50 MG TABLET PO (09:19)
[2023-05-31] MEDS: Nicotine Polacrilex 2 MG GUM 4 MG BUCCAL ×4 (09:20→18:13)
--- NOTE | 2023-05-31 10:08 | P.PNPSI_ITS ---
Subjective Subjective Date of Service: 05/31/23 Reason For Visit: F32.9, F11.20, F14.20 Interim History: met with patient; discussed with team pt reports he's doing better and though shares he still feels emotional about recent past, he is feeling in more control but is still worried; feels needs a few more days to further get under emotional control. Pt shares he's glad prozac was started and thinks it will help. Sleeping better. Mental Status Exam Mental Status Exam Narrative: Pt is alert and oriented; behavior is cooperative, calm; patient is not in distress; dressed in casual attire with adequate hygiene, tattooed arms; mood is described as little better and affect congruent; eye contact appropriate; Speech is normal rate, volume and prosody and not pressured; no psychomotor retardation present; thought process is organized and goal directed; Thought content is on feeling wronged; otherwise pertinent to relevant topics and without any delusional content, paranoid ideations or grandiosity; intermittent SI only if discharged; no HI. There is no evidence of perceptual disturbance. Patients insight and judgment improved, fair and approaching baseline. Diagnostics Vital Signs (24Hr): Vital Signs - 24 hr 05/30/23 18:00 05/31/23 08:15 Temperature 97.8 F 97.6 F Pulse Rate 73 69 Respiratory Rate 16 Blood Pressure 131/85 147/79 H Pulse Oximetry 96 97 Oxygen Delivery Method Room Air Room Air BMI result Body Mass Index 31.8 Labs 05/30/23 09:50 05/30/23 09:22 Labs: Laboratory Results - last 48 hr 05/29/23 05/29/23 05/29/23 09:15 12:31 17:27 WBC RBC Hgb Hct MCV MCH MCHC RDW Plt Count MPV Immature Gran % (Auto) Neut % (Auto) Lymph % (Auto) [place] % (Auto) Eos % (Auto) Baso % (Auto) Lymph # (Auto) [place] # (Auto) Eos # (Auto) Baso # (Auto) Abs Immat Gran (auto) Absolute Neuts (auto) Absolute Nucleated RBC Nucleated RBC % (auto) Sodium Potassium Chloride Carbon Dioxide Anion Gap BUN Creatinine Estim Creat Clear Calc Estimated GFR POC Glucose 172 H 116 H 123 H Random Glucose Calcium Total Creatine Kinase Influenza Type A (PCR) Influenza Type B (PCR) RSV RNA Qual (PCR) SARS-CoV-2 RNA (RT-PCR) S. pyogenes GrpA FRANCIS 05/29/23 05/30/23 05/30/23 21:12 08:21 09:22 WBC RBC Hgb Hct MCV MCH MCHC RDW Plt Count MPV Immature Gran % (Auto) Neut % (Auto) Lymph % (Auto) [place] % (Auto) Eos % (Auto) Baso % (Auto) Lymph # (Auto) [place] # (Auto) Eos # (Auto) Baso # (Auto) Abs Immat Gran (auto) Absolute Neuts (auto) Absolute Nucleated RBC Nucleated RBC % (auto) Sodium 138 Potassium 5.0 Chloride 100 Carbon Dioxide 30 H Anion Gap 13 BUN 16 Creatinine 1.24 Estim Creat Clear Calc 92.2 Estimated GFR > 60 POC Glucose 96 110 Random Glucose 90 Calcium 9.5 D Total Creatine Kinase 234 H Influenza Type A (PCR) Influenza Type B (PCR) RSV RNA Qual (PCR) SARS-CoV-2 RNA (RT-PCR) S. pyogenes GrpA FRANCIS 05/30/23 05/30/23 05/30/23 09:30 09:50 11:35 WBC 7.1 RBC 4.77 Hgb 14.0 Hct 42.5 MCV 89.1 MCH 29.4 MCHC 32.9 RDW 13.5 Plt Count 219 MPV 10.8 Immature Gran % (Auto) 1.3 H Neut % (Auto) 60.9 Lymph % (Auto) 25.9 [place] % (Auto) 9.3 Eos % (Auto) 2.0 Baso % (Auto) 0.6 Lymph # (Auto) 1.8 [place] # (Auto) 0.7 Eos # (Auto) 0.1 Baso # (Auto) 0.0 Abs Immat Gran (auto) 0.09 H Absolute Neuts (auto) 4.3 Absolute Nucleated RBC 0.000 Nucleated RBC % (auto) 0.0 Sodium Potassium Chloride Carbon Dioxide Anion Gap BUN Creatinine Estim Creat Clear Calc Estimated GFR POC Glucose Random Glucose Calcium Total Creatine Kinase Influenza Type A (PCR) NEGATIVE Influenza Type B (PCR) NEGATIVE RSV RNA Qual (PCR) NEGATIVE SARS-CoV-2 RNA (RT-PCR) NEGATIVE S. pyogenes GrpA FRANCIS Negative 05/30/23 05/30/23 05/30/23 12:23 17:14 22:21 WBC RBC Hgb Hct MCV MCH MCHC RDW Plt Count MPV Immature Gran % (Auto) Neut % (Auto) Lymph % (Auto) [place] % (Auto) Eos % (Auto) Baso % (Auto) Lymph # (Auto) [place] # (Auto) Eos # (Auto) Baso # (Auto) Abs Immat Gran (auto) Absolute Neuts (auto) Absolute Nucleated RBC Nucleated RBC % (auto) Sodium Potassium Chloride Carbon Dioxide Anion Gap BUN Creatinine Estim Creat Clear Calc Estimated GFR POC Glucose 96 135 H 133 H Random Glucose Calcium Total Creatine Kinase Influenza Type A (PCR) Influenza Type B (PCR) RSV RNA Qual (PCR) SARS-CoV-2 RNA (RT-PCR) S. pyogenes GrpA FRANCIS 05/31/23 08:15 WBC RBC Hgb Hct MCV MCH MCHC RDW Plt Count MPV Immature Gran % (Auto) Neut % (Auto) Lymph % (Auto) [place] % (Auto) Eos % (Auto) Baso % (Auto) Lymph # (Auto) [place] # (Auto) Eos # (Auto) Baso # (Auto) Abs Immat Gran (auto) Absolute Neuts (auto) Absolute Nucleated RBC Nucleated RBC % (auto) Sodium Potassium Chloride Carbon Dioxide Anion Gap BUN Creatinine Estim Creat Clear Calc Estimated GFR POC Glucose 95 Random Glucose Calcium Total Creatine Kinase Influenza Type A (PCR) Influenza Type B (PCR) RSV RNA Qual (PCR) SARS-CoV-2 RNA (RT-PCR) S. pyogenes GrpA FRANCIS Medications Medications Current Medications Acetaminophen (Acetaminophen 325 Mg Tablet) 650 mg PO Q6H PRN PRN Reason: Headache/Pain Mild Scale (1-3) Last Admin: 05/30/23 09:39 Dose: 650 mg Al Hydroxide/Mg Hydroxide (Magnesium Hydrox/Alum Hydrox 30 Ml Oral.Susp) 30 ml PO Q6H PRN PRN Reason: Heartburn/Nausea Amlodipine Besylate (Amlodipine Besylate 10 Mg Tablet) 10 mg PO BEDTIME CALLIE; Protocol Last Admin: 05/30/23 23:57 Dose: 10 mg Bisacodyl (Bisacodyl 5 Mg Tablet.Dr) 10 mg PO BEDTIME PRN PRN Reason: Constipation Buprenorphine/Naloxone (Buprenorphine/Naloxone 4/1 Mg Film) 1 film SUBLINGUAL BID@0900,1700 CALLIE Last Admin: 05/31/23 08:29 Dose: 1 film Bupropion HCl (Bupropion Hcl 100 Mg Tablet) 200 mg PO DAILY [facility] Last Admin: 05/31/23 08:30 Dose: 200 mg Cephalexin HCl (Cephalexin 500 Mg Capsule) 500 mg PO Q6H [facility] Stop: 05/31/23 15:01 Last Admin: 05/31/23 08:30 Dose: 500 mg Clonidine HCl (Clonidine Hcl 0.1 Mg Tablet) 0.1 mg PO Q4H PRN; Protocol PRN Reason: anxiety Last Admin: 05/29/23 22:53 Dose: 0.1 mg Dextrose (Dextrose 50 % 25 Gm/50 Ml Syringe) 25 gm IVPUSH Q15M PRN; Protocol PRN Reason: per Hypoglycemia Standing Ord. Docusate Sodium (Docusate Sodium 100 Mg Capsule) 100 mg PO BEDTIME PRN PRN Reason: Constipation Last Admin: 05/28/23 20:14 Dose: 100 mg Fluoxetine HCl (Fluoxetine Hcl 10 Mg Capsule) 10 mg PO DAILY [facility] Last Admin: 05/31/23 08:30 Dose: 10 mg Gabapentin (Gabapentin 300 Mg Capsule) 300 mg PO TID [facility] Last Admin: 05/31/23 08:30 Dose: 300 mg Glucose (Glucose Gel 15 Gm Gel..Gram.) 15 gm PO Q15M PRN; Protocol PRN Reason: per Hypoglycemia Standing Ord. Hydroxyzine HCl (Hydroxyzine Hcl 50 Mg Tablet) 50 mg PO Q6H PRN PRN Reason: Anxiety Last Admin: 05/31/23 09:19 Dose: 50 mg Ibuprofen (Ibuprofen 400 Mg Tablet) 400 mg PO Q6H PRN PRN Reason: Pain, Moderate(Pain Scale 4-6) Last Admin: 05/29/23 11:00 Dose: 400 mg Insulin Human Lispro (Insulin Lispro 100 Unit/Ml 3 Ml Vial) 0 unit SUBCUT QIDACHS [facility]; Protocol Last Admin: 05/31/23 08:57 Dose: Not Given Magnesium Hydroxide (Milk Of Magnesia 30 Ml Oral.Susp) 30 ml PO DAILY PRN PRN Reason: Constipation Last Admin: 05/28/23 16:35 Dose: 30 ml Metformin HCl (Metformin Hcl 500 Mg Tablet) 500 mg PO BIDWM [facility] Last Admin: 05/31/23 08:30 Dose: 500 mg Nicotine (Nicotine 21 Mg Patch.Td24) 21 mg TRANSDERMA DAILY PRN PRN Reason: smoking cessation Last Admin: 05/31/23 09:19 Dose: 21 mg Nicotine Polacrilex (Nicotine Polacrilex 2 Mg Gum) 4 mg BUCCAL Q2H PRN PRN Reason: nicotine cravings Last Admin: 05/31/23 09:20 Dose: 4 mg Omeprazole (Omeprazole 40 Mg Capsule.Dr) 40 mg PO DAILY@0630 CALLIE Last Admin: 05/31/23 06:31 Dose: 40 mg Trazodone HCl (Trazodone Hcl 50 Mg Tablet) 50 mg PO BEDTIME MRX1 PRN PRN Reason: Insomnia Last Admin: 05/28/23 22:14 Dose: 50 mg Allergies Allergies Allergy/AdvReac Type Severity Reaction Status Date / Time No Known Allergies Allergy Verified 05/23/23 16:43 Assessment & Plan Assessment & Plan (1) MDD (major depressive disorder), recurrent episode, moderate: Status: Acute Code(s): F33.1 - Major depressive disorder, recurrent, moderate (2) Non-insulin dependent type 2 diabetes mellitus: Status: Acute Code(s): E11.9 - Type 2 diabetes mellitus without complications Assessment and Plan: check hba1c, (3) Sebaceous cyst of right axilla: Status: Acute Code(s): L72.3 - Sebaceous cyst (4) Opioid use disorder: Status: Acute Code(s): F11.90 - Opioid use, unspecified, uncomplicated (5) Cocaine use disorder: Status: Acute Code(s): F14.10 - Cocaine abuse, uncomplicated (6) PTSD (post-traumatic stress disorder): Status: Acute Code(s): F43.10 - Post-traumatic stress disorder, unspecified Plan Patient is a 42-year-old male with history of depression, PTSD who presents for depression and SI. Patient wants help with depression and cravings for cocaine and heroin; SI resolved Hospital course: 05/25 patient stabilizing; no SI; tolerating medications.? Talking about his feelings.? Continue treatment; says Suboxone helpful. 05/26 patient reports depression is lessening however he still very anxious and worried about being able to cope post discharge; patient emotional and feeling a little overwhelmed by navigating his emotions.? He is? going to groups, forthcoming in interviews and trying to utilize coping skills that he is learning on the unit.? At this time patient is at high risk for relapse and decompensation were he to be discharged.? He should remain on the unit for further stabilization and possible medication management, considering increasing Wellbutrin. Will continue with Wellbutrin at current dose for now and consider whether not to increase after few days. 05/28 -lowered Buproprion over weekend since some trouble sleeping -patient inc si seems related to possible dc this monday- seems to be forming peer group and another patient mirroring each other on this presentation 05/29 pt remains emotionally reactive; he says he'll be suicidal or gone hurt someone if discharged feeling not yet in control of his emotions and behavior., of note he just found out that his uncle which is contributing to his emotionality. At this time patient remains to emotionally reactive and requires continued inpatient admission for safety. Patient is going to groups and trying to employed coping skills; he shared that he has had a very limited repertoire of coping skills -sore throat: Negative strep, flu, RSV, COVID test 05/30 patient forthcoming in interview; even to the point where he agreed that it can be a pattern or habit to blame others for his problems. Patient said he wants very much to overcome these things. Patient will remain on the unit for continued stabilization and safety as he remains very emotionally reactive and at risk for being unsafe in the community were he to be discharged. Also for medication management. Will restart Prozac which he had been on in the past to augment Wellbutrin in effort to further reduce symptoms of PTSD/anxiety 05/31 stabilizing, getting in more control of his emotions; feels needs a few more days to which copywriter agrees as Prozac takes effect Plan: CV Q 15 minute checks Conitnue Prozac 10 mg Added propranolol LA 60 mg for anxiety and also hypertension Continue Wellbutrin XR and increased to 200 mg daily (was lowered by covering provider since trouble sleeping Continue Suboxone 2/0.5 mg b.i.d. for cravings; patient feels the need for help with cravings and staying sober but is wanting to avoid getting overly addicted to Suboxone RT Axillary cyst: -seen by medicine PA: Recommend continuing bactim x 7 days and adding keflex 500mg qid -seen by surgcial consult: 42 year old male admitted to [facility] for MDD, SI, substance abuse with c/o painful right axillary swelling. May be infected epidermal inclusion cyst vs hid radenitis suppurativa. Either way, recommend continuing antibiotic therapy for now without I&D as he seems to be improving. There is a small amount of fluctuance of the axilla but this appears to be draining via the small wound opening. Dry sterile gauze applied which can be changed daily and as needed. Continue warm compresses. If there is no further improvement or he worsens, the area can be drained. Discussed diabetes mellitus and importance of tight blood sugar control in healing, prevention of worsening infection. Walkko addendum 05/27/23 Agree with the above plan. Continue antibiotics and local care. After the inflammation settles down, about 50% of these patients will have a persistent cyst that will need to be excised on an outpatient basis. Patient educated on: diagnosis, medication risk/benefits, substance abuse and therapeutic strategies Informed Consent: understands Reason for continued inpatient stay Substantial Risk for: stable for discharge and med/psych decompensation Time Spent With Patient Time: Total time managing care of this patient today ____ minutes.
[2023-05-31 12:11] LABS: Glucose, Whole Blood 133 mg/dL (60-115)
[2023-05-31 16:44] LABS: Glucose, Whole Blood 101 mg/dL (60-115)
[2023-05-31 18:50] VITALS: BP 166/95; PULSE 95; TEMP 36.3
[2023-05-31] MEDS: cloNIDine HCL 0.1 MG TABLET PO ×2 (18:54→20:37)
[2023-05-31] MEDS: amLODIPine Besylate 10 MG TABLET PO (20:37)
[2023-05-31 21:14] LABS: Glucose, Whole Blood 136 mg/dL (60-115)
[2023-06-01] MEDS: Omeprazole 40 MG CAPSULE.DR PO (06:42)
[2023-06-01 07:00] VITALS: BMI 32.9
[2023-06-01 08:05] LABS: Glucose, Whole Blood 120 mg/dL (60-115)
[2023-06-01 09:00] VITALS: BP 138/68; PULSE 86; RESP 18; TEMP 36.6; O2SAT 97
[2023-06-01] MEDS: FLUoxetine HCl 10 MG CAPSULE PO (09:12)
[2023-06-01] MEDS: buPROPion HCL 100 MG TABLET 300 MG PO (09:12)
[2023-06-01] MEDS: Gabapentin 300 MG CAPSULE PO ×3 (09:13→20:07)
[2023-06-01] MEDS: metFORMIN HCl 500 MG TABLET PO ×2 (09:13→16:41)
[2023-06-01] MEDS: Buprenorphine/Naloxone 4/1 mg FILM 1 FILM SUBLINGUAL ×2 (09:13→16:41)
[2023-06-01] MEDS: Nicotine 21 MG PATCH.TD24 TRANSDERMA (12:01)
[2023-06-01] MEDS: Nicotine Polacrilex 2 MG GUM 4 MG BUCCAL ×2 (12:01→14:03)
[2023-06-01 12:10] LABS: Glucose, Whole Blood 128 mg/dL (60-115)
[2023-06-01 16:40] LABS: Glucose, Whole Blood 123 mg/dL (60-115)
--- NOTE | 2023-06-01 17:10 | P.PNPSI_ITS ---
Subjective Subjective Date of Service: 06/01/23 Reason For Visit: F32.9, F11.20, F14.20 Interim History: met w/ patient; discussed with team pt reports feeling better; says thought about previous conversation and how he'll get more in control of himself over time to which he feels committed. PT also reflecting on propensity to blame others for things and how this is confusing him and impeding progress; expresses gratitude for these discussions. Mental Status Exam Mental Status Exam Narrative: Pt is alert and oriented; behavior is cooperative, calm; patient is not in di stress; dressed in casual attire with adequate hygiene, tattooed arms; mood is described as better and affect congruent; eye contact appropriate; Speech is normal rate, volume and prosody and not pressured; no psychomotor retardation present; thought process is organized and goal directed; Thought content is on feeling wronged; otherwise pertinent to relevant topics and without any delusional content, paranoid ideations or grandiosity; no SI; no HI. There is no evidence of perceptual disturbance. Patients insight and judgment improved, fair and at baseline. Diagnostics Vital Signs (24Hr): Vital Signs - 24 hr 05/31/23 18:50 06/01/23 09:00 Temperature 97.4 F 97.8 F Pulse Rate 95 86 Respiratory Rate 18 Blood Pressure 166/95 H 138/68 Pulse Oximetry 97 Oxygen Delivery Method Room Air BMI result Body Mass Index 32.9 Labs 05/30/23 09:50 05/30/23 09:22 Labs: Laboratory Results - last 48 hr 05/30/23 05/30/23 05/31/23 17:14 22:21 08:15 POC Glucose 135 H 133 H 95 05/31/23 05/31/23 05/31/23 12:07 16:38 21:09 POC Glucose 133 H 101 136 H 06/01/23 06/01/23 06/01/23 07:57 12:04 16:35 POC Glucose 120 H 128 H 123 H Medications Medications Current Medications Acetaminophen (Acetaminophen 325 Mg Tablet) 650 mg PO Q6H PRN PRN Reason: Headache/Pain Mild Scale (1-3) Last Admin: 05/30/23 09:39 Dose: 650 mg Al Hydroxide/Mg Hydroxide (Magnesium Hydrox/Alum Hydrox 30 Ml Oral.Susp) 30 ml PO Q6H PRN PRN Reason: Heartburn/Nausea Amlodipine Besylate (Amlodipine Besylate 10 Mg Tablet) 10 mg PO BEDTIME [facility]; Protocol Last Admin: 05/31/23 20:37 Dose: 10 mg Bisacodyl (Bisacodyl 5 Mg Tablet.Dr) 10 mg PO BEDTIME PRN PRN Reason: Constipation Buprenorphine/Naloxone (Buprenorphine/Naloxone 4/1 Mg Film) 1 film SUBLINGUAL BID@0900,1700 [facility] Last Admin: 06/01/23 16:41 Dose: 1 film Bupropion HCl (Bupropion Hcl 100 Mg Tablet) 300 mg PO DAILY [facility] Last Admin: 06/01/23 09:12 Dose: 300 mg Clonidine HCl (Clonidine Hcl 0.1 Mg Tablet) 0.1 mg PO Q4H PRN; Protocol PRN Reason: anxiety Last Admin: 05/31/23 18:54 Dose: 0.1 mg Clonidine HCl (Clonidine Hcl 0.1 Mg Tablet) 0.1 mg PO BEDTIME [facility]; Protocol Last Admin: 05/31/23 20:37 Dose: 0.1 mg Dextrose (Dextrose 50 % 25 Gm/50 Ml Syringe) 25 gm IVPUSH Q15M PRN; Protocol PRN Reason: per Hypoglycemia Standing Ord. Docusate Sodium (Docusate Sodium 100 Mg Capsule) 100 mg PO BEDTIME PRN PRN Reason: Constipation Last Admin: 05/28/23 20:14 Dose: 100 mg Fluoxetine HCl (Fluoxetine Hcl 10 Mg Capsule) 10 mg PO DAILY [facility] Last Admin: 06/01/23 09:12 Dose: 10 mg Gabapentin (Gabapentin 300 Mg Capsule) 300 mg PO TID [facility] Last Admin: 06/01/23 14:03 Dose: 300 mg Glucose (Glucose Gel 15 Gm Gel..Gram.) 15 gm PO Q15M PRN; Protocol PRN Reason: per Hypoglycemia Standing Ord. Hydroxyzine HCl (Hydroxyzine Hcl 50 Mg Tablet) 50 mg PO Q6H PRN PRN Reason: Anxiety Last Admin: 05/31/23 09:19 Dose: 50 mg Ibuprofen (Ibuprofen 400 Mg Tablet) 400 mg PO Q6H PRN PRN Reason: Pain, Moderate(Pain Scale 4-6) Last Admin: 05/29/23 11:00 Dose: 400 mg Insulin Human Lispro (Insulin Lispro 100 Unit/Ml 3 Ml Vial) 0 unit SUBCUT QIDACHS [facility]; Protocol Last Admin: 06/01/23 16:44 Dose: Not Given Magnesium Hydroxide (Milk Of Magnesia 30 Ml Oral.Susp) 30 ml PO DAILY PRN PRN Reason: Constipation Last Admin: 05/28/23 16:35 Dose: 30 ml Metformin HCl (Metformin Hcl 500 Mg Tablet) 500 mg PO BIDWM [facility] Last Admin: 06/01/23 16:41 Dose: 500 mg Nicotine (Nicotine 21 Mg Patch.Td24) 21 mg TRANSDERMA DAILY PRN PRN Reason: smoking cessation Last Admin: 06/01/23 12:01 Dose: 21 mg Nicotine Polacrilex (Nicotine Polacrilex 2 Mg Gum) 4 mg BUCCAL Q2H PRN PRN Reason: nicotine cravings Last Admin: 06/01/23 14:03 Dose: 4 mg Omeprazole (Omeprazole 40 Mg Capsule.Dr) 40 mg PO DAILY@0630 [facility] Last Admin: 06/01/23 06:42 Dose: 40 mg Allergies Allergies Allergy/AdvReac Type Severity Reaction Status Date / Time No Known Allergies Allergy Verified 05/23/23 16:43 Assessment & Plan Assessment & Plan (1) MDD (major depressive disorder), recurrent episode, moderate: Status: Acute Code(s): F33.1 - Major depressive disorder, recurrent, moderate (2) Non-insulin dependent type 2 diabetes mellitus: Status: Acute Code(s): E11.9 - Type 2 diabetes mellitus without complications Assessment and Plan: check hba1c, (3) Sebaceous cyst of right axilla: Status: Acute Code(s): L72.3 - Sebaceous cyst (4) Opioid use disorder: Status: Acute Code(s): F11.90 - Opioid use, unspecified, uncomplicated (5) Cocaine use disorder: Status: Acute Code(s): F14.10 - Cocaine abuse, uncomplicated (6) PTSD (post-traumatic stress disorder): Status: Acute Code(s): F43.10 - Post-traumatic stress disorder, unspecified Plan Patient is a 42-year-old male with history of depression, PTSD who presents for depression and SI. Patient wants help with depression and cravings for cocaine and heroin; SI resol bere Hospital course: 05/25 patient stabilizing; no SI; tolerating medications.? Talking about his feelings.? Continue treatment; says Suboxone helpful. 05/26 patient reports depression is lessening however he still very anxious and worried about being able to cope post discharge; patient emotional and feeling a little overwhelmed by navigating his emotions.? He is? going to groups, forthcoming in interviews and trying to utilize coping skills that he is learning on the unit.? At this time patient is at high risk for relapse and decompensation were he to be discharged.? He should remain on the unit for further stabilization and possible medication management, considering increasing Wellbutrin. Will continue with Wellbutrin at current dose for now and consider whether not to increase after few days. 05/28 -lowered Buproprion over weekend since some trouble sleeping -patient inc si seems related to possible dc this monday- seems to be forming peer group and another patient mirroring each other on this presentation 05/29 pt remains emotionally reactive; he says he'll be suicidal or gone hurt someone if discharged feeling not yet in control of his emotions and behavior., of note he just found out that his uncle which is contributing to his emotionality. At this time patient remains to emotionally reactive and requires continued inpatient admission for safety. Patient is going to groups and trying to employed coping skills; he shared that he has had a very limited repertoire of coping skills -sore throat: Negative strep, flu, RSV, COVID test 05/30 patient forthcoming in interview; even to the point where he agreed that it can be a pattern or habit to blame others for his problems. Patient said he wants very much to overcome these things. Patient will remain on the unit for continued stabilization and safety as he remains very emotionally reactive and at risk for being unsafe in the community were he to be discharged. Also for medication management. Will restart Prozac which he had been on in the past to augment Wellbutrin in effort to further reduce symptoms of PTSD/anxiety 05/31 stabilizing, getting in more control of his emotions; feels needs a few more days to which commercial underwriter agrees as Prozac takes effect 06/01 pt doing much better; feels in good behvioral control; no SI no HI and future oriented; feels good about post discharge plan and well supported. Pt feels ready for discharge; he is not in imminent risk for harm to self or others and appropriate for dc to community. Plan: CV Q 15 minute checks Conitnue Prozac 10 mg Added propranolol LA 60 mg for anxiety and also hypertension Continue Wellbutrin XR and increased to 200 mg daily (was lowered by covering provider since trouble sleeping Continue Suboxone 2/0.5 mg b.i.d. for cravings; patient feels the need for help with cravings and staying sober but is wanting to avoid getting overly addicted to Suboxone RT Axillary cyst: -seen by medicine PA: Recommend continuing bactim x 7 days and adding keflex 500mg qid -seen by surgcial consult: 42 year old male admitted to [facility] for MDD, SI, substance abuse with c/o painful right axillary swelling. May be infected epidermal inclusion cyst vs hidradenitis suppurativa. Either way, recommend continuing antibiotic therapy for now without I&D as he seems to be improving. There is a small amount of fluctuance of the axilla but this appears to be draining via the small wound opening. Dry sterile gauze applied which can be changed daily and as needed. Continue warm compresses. If there is no further improvement or he worsens, the area can be drained. Discussed diabetes mellitus and importance of tight blood sugar control in healing, prevention of worsening infection. Walkko addendum 05/27/23 Agree with the above plan. Continue antibiotics and local care. After the inflammation settles down, about 50% of these patients will have a persistent cyst that will need to be excised on an outpatient basis. Patient educated on: diagnosis and therapeutic strategies Informed Consent: understands Reason for continued inpatient stay Substantial Risk for: stable for discharge Time Spent With Patient Time: Total time managing care of this patient today ____ minutes.
[2023-06-01 19:52] VITALS: BP 160/84; PULSE 88; TEMP 36.6
[2023-06-01] MEDS: cloNIDine HCL 0.1 MG TABLET PO (20:07)
[2023-06-01] MEDS: amLODIPine Besylate 10 MG TABLET PO (20:07)
[2023-06-01 20:30] LABS: Glucose, Whole Blood 106 mg/dL (60-115)
[2023-06-02] MEDS: Omeprazole 40 MG CAPSULE.DR PO (07:08)
[2023-06-02 08:42] VITALS: BP 133/80; PULSE 96; RESP 16; TEMP 36.4; O2SAT 96
[2023-06-02] MEDS: metFORMIN HCl 500 MG TABLET PO (08:50)
[2023-06-02] MEDS: buPROPion HCL 100 MG TABLET 300 MG PO (08:50)
[2023-06-02] MEDS: FLUoxetine HCl 10 MG CAPSULE PO (08:50)
[2023-06-02] MEDS: Gabapentin 300 MG CAPSULE PO (08:50)
[2023-06-02 08:55] LABS: Glucose, Whole Blood 99 mg/dL (60-115)
[2023-06-02] MEDS: Buprenorphine/Naloxone 4/1 mg FILM 1 FILM SUBLINGUAL (09:27)
--- NOTE | 2023-06-02 10:34 | P.DS_ITS ---
DS: Providers Provider Date of Service: 06/02/23 Date of admission: 05/23/23 14:20 Date of discharge: 06/02/23 Primary care physician: Unknown Physician Attending physician on admission: Cordell Ureña Consults: 05/23/23 16:53 Consult to Hospitalist Routine Comment: Consulting Provider: Hospitalist Reason For Exam: OSH M5 admission 05/24/23 19:44 Consult to Hospitalist Routine Comment: Consulting Provider: Hospitalist Reason For Exam: r axillary painful mass 05/24/23 20:41 Consult to General Surgery Routine Consulting Provider: [facility] General Surgeons Reason for consultation: axillary abscess Attending physician on discharge: Cordell Ureña DS: Diagnosis Discharge Diagnosis (1) MDD (major depressive disorder), recurrent episode, moderate: Status: Acute (2) Non-insulin dependent type 2 diabetes mellitus: Status: Acute (3) Sebaceous cyst of right axilla: Status: Acute (4) Opioid use disorder: Status: Acute (5) Cocaine use disorder: Status: Acute (6) PTSD (post-traumatic stress disorder): Status: Acute DS: Medications Discharge Medications Home Medications: Home Medications Medication Instructions Recorded Confirmed chlorthalidone 25 mg tablet 25 mg PO DAILY 05/23/23 05/23/23 Previous Rx's Medication Instructions Recorded amlodipine 10 mg tablet 10 mg PO DAILY 30 days #30 tabs 06/02/23 clonidine HCl 0.1 mg tablet 0.1 mg PO Q4H PRN anxiety/insomnia 06/02/23 30 days #90 tabs fluoxetine 10 mg capsule 10 mg PO DAILY 30 days #30 caps 06/02/23 gabapentin 300 mg capsule 300 mg PO TID 30 days #90 caps 06/02/23 hydroxyzine HCl 50 mg tablet 50 mg PO Q6H PRN Anxiety 30 days 06/02/23 #60 tabs metformin 500 mg tablet 500 mg PO BIDWMEAL 30 days #60 tabs 06/02/23 nicotine (polacrilex) 4 mg gum 4 mg buccal Q2H PRN nicotine 06/02/23 cravings 30 days #100 ea nicotine 21 mg/24 hr daily 21 mg transdermal DAILY PRN 06/02/23 transdermal patch smoking cessation 28 days #28 ea omeprazole 40 mg capsule,delayed 40 mg PO DAILY@0630 30 days #30 06/02/23 release caps Mental Status Exam Mental Status Exam Narrative: Pt is alert and oriented; behavior is cooperative, calm; patient is not in distress; dressed in casual attire with adequate hygiene, tattooed arms; mood is described as better and affect congruent; eye contact appropriate; Speech is normal rate, volume and prosody and not pressured; no psychomotor retardation present; thought process is organized and goal directed; Thought content is on feeling wronged; otherwise pertinent to relevant topics and without any delusional content, paranoid ideations or grandiosity; no SI; no HI. There is no evidence of perceptual disturbance. Patients insight and judgment improved, fair and at baseline. Data Data Completed and Pending Completed studies during hospitalization [Text1]: 05/26/23 05/26/23 05/26/23 11:51 15:17 19:59 WBC RBC Hgb Hct MCV MCH MCHC RDW Plt Count MPV Immature Gran % (Auto) Neut % (Auto) Lymph % (Auto) [place] % (Auto) Eos % (Auto) Baso % (Auto) Lymph # (Auto) [place] # (Auto) Eos # (Auto) Baso # (Auto) Abs Immat Gran (auto) Absolute Neuts (auto) Absolute Nucleated RBC Nucleated RBC % (auto) Sodium Potassium Chloride Carbon Dioxide Anion Gap BUN Creatinine Estim Creat Clear Calc Estimated GFR POC Glucose 143 H 135 H 131 H Random Glucose Estimat Average Glucose Hemoglobin A1c % Calcium Total Creatine Kinase Influenza Type A (PCR) Influenza Type B (PCR) RSV RNA Qual (PCR) SARS-CoV-2 RNA (RT-PCR) S. pyogenes GrpA FRANCIS 05/27/23 05/27/23 05/27/23 08:05 12:08 16:30 WBC RBC Hgb Hct MCV MCH MCHC RDW Plt Count MPV Immature Gran % (Auto) Neut % (Auto) Lymph % (Auto) [place] % (Auto) Eos % (Auto) Baso % (Auto) Lymph # (Auto) [place] # (Auto) Eos # (Auto) Baso # (Auto) Abs Immat Gran (auto) Absolute Neuts (auto) Absolute Nucleated RBC Nucleated RBC % (auto) Sodium Potassium Chloride Carbon Dioxide Anion Gap BUN Creatinine Estim Creat Clear Calc Estimated GFR POC Glucose 160 H 125 H 138 H Random Glucose Estimat Average Glucose Hemoglobin A1c % Calcium Total Creatine Kinase Influenza Type A (PCR) Influenza Type B (PCR) RSV RNA Qual (PCR) SARS-CoV-2 RNA (RT-PCR) S. pyogenes GrpA FRANCIS 05/27/23 05/28/23 05/28/23 20:19 07:41 08:46 WBC RBC Hgb Hct MCV MCH MCHC RDW Plt Count MPV Immature Gran % (Auto) Neut % (Auto) Lymph % (Auto) [place] % (Auto) Eos % (Auto) Baso % (Auto) Lymph # (Auto) [place] # (Auto) Eos # (Auto) Baso # (Auto) Abs Immat Gran (auto) Absolute Neuts (auto) Absolute Nucleated RBC Nucleated RBC % (auto) Sodium Potassium Chloride Carbon Dioxide Anion Gap BUN Creatinine Estim Creat Clear Calc Estimated GFR POC Glucose 118 H 99 Random Glucose Estimat Average Glucose 103 Hemoglobin A1c % 5.2 Calcium Total Creatine Kinase Influenza Type A (PCR) Influenza Type B (PCR) RSV RNA Qual (PCR) SARS-CoV-2 RNA (RT-PCR) S. pyogenes GrpA FRANCIS 05/28/23 05/28/23 05/28/23 11:46 16:30 20:01 WBC RBC Hgb Hct MCV MCH MCHC RDW Plt Count MPV Immature Gran % (Auto) Neut % (Auto) Lymph % (Auto) [place] % (Auto) Eos % (Auto) Baso % (Auto) Lymph # (Auto) [place] # (Auto) Eos # (Auto) Baso # (Auto) Abs Immat Gran (auto) Absolute Neuts (auto) Absolute Nucleated RBC Nucleated RBC % (auto) Sodium Potassium Chloride Carbon Dioxide Anion Gap BUN Creatinine Estim Creat Clear Calc Estimated GFR POC Glucose 94 131 H 124 H Random Glucose Estimat Average Glucose Hemoglobin A1c % Calcium Total Creatine Kinase Influenza Type A (PCR) Influenza Type B (PCR) RSV RNA Qual (PCR) SARS-CoV-2 RNA (RT-PCR) S. pyogenes GrpA FRANCIS 05/29/23 05/29/23 05/29/23 09:15 12:31 17:27 WBC RBC Hgb Hct MCV MCH MCHC RDW Plt Count MPV Immature Gran % (Auto) Neut % (Auto) Lymph % (Auto) [place] % (Auto) Eos % (Auto) Baso % (Auto) Lymph # (Auto) [place] # (Auto) Eos # (Auto) Baso # (Auto) Abs Immat Gran (auto) Absolute Neuts (auto) Absolute Nucleated RBC Nucleated RBC % (auto) Sodium Potassium Chloride Carbon Dioxide Anion Gap BUN Creatinine Estim Creat Clear Calc Estimated GFR POC Glucose 172 H 116 H 123 H Random Glucose Estimat Average Glucose Hemoglobin A1c % Calcium Total Creatine Kinase Influenza Type A (PCR) Influenza Type B (PCR) RSV RNA Qual (PCR) SARS-CoV-2 RNA (RT-PCR) S. pyogenes GrpA FRANCIS 05/29/23 05/30/23 05/30/23 21:12 08:21 09:22 WBC RBC Hgb Hct MCV MCH MCHC RDW Plt Count MPV Immature Gran % (Auto) Neut % (Auto) Lymph % (Auto) [place] % (Auto) Eos % (Auto) Baso % (Auto) Lymph # (Auto) [place] # (Auto) Eos # (Auto) Baso # (Auto) Abs Immat Gran (auto) Absolute Neuts (auto) Absolute Nucleated RBC Nucleated RBC % (auto) Sodium 138 Potassium 5.0 Chloride 100 Carbon Dioxide 30 H Anion Gap 13 BUN 16 Creatinine 1.24 Estim Creat Clear Calc 92.2 Estimated GFR > 60 POC Glucose 96 110 Random Glucose 90 Estimat Average Glucose Hemoglobin A1c % Calcium 9.5 D Total Creatine Kinase 234 H Influenza Type A (PCR) Influenza Type B (PCR) RSV RNA Qual (PCR) SARS-CoV-2 RNA (RT-PCR) S. pyogenes GrpA FRANCIS 05/30/23 05/30/23 05/30/23 09:30 09:50 11:35 WBC 7.1 RBC 4.77 Hgb 14.0 Hct 42.5 MCV 89.1 MCH 29.4 MCHC 32.9 RDW 13.5 Plt Count 219 MPV 10.8 Immature Gran % (Auto) 1.3 H Neut % (Auto) 60.9 Lymph % (Auto) 25.9 [place] % (Auto) 9.3 Eos % (Auto) 2.0 Baso % (Auto) 0.6 Lymph # (Auto) 1.8 [place] # (Auto) 0.7 Eos # (Auto) 0.1 Baso # (Auto) 0.0 Abs Immat Gran (auto) 0.09 H Absolute Neuts (auto) 4.3 Absolute Nucleated RBC 0.000 Nucleated RBC % (auto) 0.0 Sodium Potassium Chloride Carbon Dioxide Anion Gap BUN Creatinine Estim Creat Clear Calc Estimated GFR POC Glucose Random Glucose Estimat Average Glucose Hemoglobin A1c % Calcium Total Creatine Kinase Influenza Type A (PCR) NEGATIVE Influenza Type B (PCR) NEGATIVE RSV RNA Qual (PCR) NEGATIVE SARS-CoV-2 RNA (RT-PCR) NEGATIVE S. pyogenes GrpA FRANCIS Negative 05/30/23 05/30/23 05/30/23 12:23 17:14 22:21 WBC RBC Hgb Hct MCV MCH MCHC RDW Plt Count MPV Immature Gran % (Auto) Neut % (Auto) Lymph % (Auto) [place] % (Auto) Eos % (Auto) Baso % (Auto) Lymph # (Auto) [place] # (Auto) Eos # (Auto) Baso # (Auto) Abs Immat Gran (auto) Absolute Neuts (auto) Absolute Nucleated RBC Nucleated RBC % (auto) Sodium Potassium Chloride Carbon Dioxide Anion Gap BUN Creatinine Estim Creat Clear Calc Estimated GFR POC Glucose 96 135 H 133 H Random Glucose Estimat Average Glucose Hemoglobin A1c % Calcium Total Creatine Kinase Influenza Type A (PCR) Influenza Type B (PCR) RSV RNA Qual (PCR) SARS-CoV-2 RNA (RT-PCR) S. pyogenes GrpA FRANCIS 05/31/23 05/31/23 05/31/23 08:15 12:07 16:38 WBC RBC Hgb Hct MCV MCH MCHC RDW Plt Count MPV Immature Gran % (Auto) Neut % (Auto) Lymph % (Auto) [place] % (Auto) Eos % (Auto) Baso % (Auto) Lymph # (Auto) [place] # (Auto) Eos # (Auto) Baso # (Auto) Abs Immat Gran (auto) Absolute Neuts (auto) Absolute Nucleated RBC Nucleated RBC % (auto) Sodium Potassium Chloride Carbon Dioxide Anion Gap BUN Creatinine Estim Creat Clear Calc Estimated GFR POC Glucose 95 133 H 101 Random Glucose Estimat Average Glucose Hemoglobin A1c % Calcium Total Creatine Kinase Influenza Type A (PCR) Influenza Type B (PCR) RSV RNA Qual (PCR) SARS-CoV-2 RNA (RT-PCR) S. pyogenes GrpA FRANCIS 05/31/23 06/01/23 06/01/23 21:09 07:57 12:04 WBC RBC Hgb Hct MCV MCH MCHC RDW Plt Count MPV Immature Gran % (Auto) Neut % (Auto) Lymph % (Auto) [place] % (Auto) Eos % (Auto) Baso % (Auto) Lymph # (Auto) [place] # (Auto) Eos # (Auto) Baso # (Auto) Abs Immat Gran (auto) Absolute Neuts (auto) Absolute Nucleated RBC Nucleated RBC % (auto) Sodium Potassium Chloride Carbon Dioxide Anion Gap BUN Creatinine Estim Creat Clear Calc Estimated GFR POC Glucose 136 H 120 H 128 H Random Glucose Estimat Average Glucose Hemoglobin A1c % Calcium Total Creatine Kinase Influenza Type A (PCR) Influenza Type B (PCR) RSV RNA Qual (PCR) SARS-CoV-2 RNA (RT-PCR) S. pyogenes GrpA FRANCIS 06/01/23 06/01/23 06/02/23 16:35 20:26 08:51 WBC RBC Hgb Hct MCV MCH MCHC RDW Plt Count MPV Immature Gran % (Auto) Neut % (Auto) Lymph % (Auto) [place] % (Auto) Eos % (Auto) Baso % (Auto) Lymph # (Auto) [place] # (Auto) Eos # (Auto) Baso # (Auto) Abs Immat Gran (auto) Absolute Neuts (auto) Absolute Nucleated RBC Nucleated RBC % (auto) Sodium Potassium Chloride Carbon Dioxide Anion Gap BUN Creatinine Estim Creat Clear Calc Estimated GFR POC Glucose 123 H 106 99 Random Glucose Estimat Average Glucose Hemoglobin A1c % Calcium Total Creatine Kinase Influenza Type A (PCR) Influenza Type B (PCR) RSV RNA Qual (PCR) SARS-CoV-2 RNA (RT-PCR) S. pyogenes GrpA FRANCIS DS: Summary Hospital Course Hospital Course: Patient is a 42-year-old male with history of depression, PTSD who presents for depression and SI. Patient wants help with depression and cravings for cocaine and heroin; SI resolved Hospital course: 05/25 patient stabilizing; no SI; tolerating medications.? Talking about his feelings.? Continue treatment; says Suboxone helpful. 05/26 patient reports depression is lessening however he still very anxious and worried about being able to cope post discharge; patient emotional and feeling a little overwhelmed by navigating his emotions.? He is? going to groups, forthcoming in interviews and trying to utilize coping skills that he is learning on the unit.? At this time patient is at high risk for relapse and decompensation were he to be discharged.? He should remain on the unit for further stabilization and possible medication management, considering increasing Wellbutrin. Will continue with Wellbutrin at current dose for now and consider whether not to increase after few days. 05/28 -lowered Buproprion over weekend since some trouble sleeping -patient inc si seems related to possible dc this monday- seems to be forming peer group and another patient mirroring each other on this presentation 05/29 pt remains emotionally reactive; he says he'll be suicidal or gone hurt someone if discharged feeling not yet in control of his emotions and behavior., of note he just found out that his uncle which is contributing to his emotionality.? At this time patient remains to emotionally reactive and requires continued inpatient admission for safety.? Patient is going to groups and trying to employed coping skills; he shared that he has had a very limited repertoire of coping skills -sore throat: Negative strep, flu, RSV, COVID test 05/30 patient forthcoming in interview; even to the point where he agreed that it can be a pattern or habit to blame others for his problems.? Patient said he wants very much to overcome these things.? Patient will remain on the unit for continued stabilization and safety as he remains very emotionally reactive and at risk for being unsafe in the community were he to be discharged.? Also for medication management.? Will restart Prozac which he had been on in the past to augment Wellbutrin in effort to further reduce symptoms of PTSD/anxiety 05/31 stabilizing, getting in more control of his emotions; feels needs a few more days to which junior copywriter agrees as Prozac takes effect 06/01 pt doing much better; feels in good behvioral control; no SI no HI and future oriented; feels good about post discharge plan and well supported. Pt feels ready for discharge; he is not in imminent risk for harm to self or others and appropriate for dc to community. meds: Conitnue Prozac 10 mg Added propranolol LA 60 mg for anxiety and also hypertension Continue Wellbutrin XR and increased to 200 mg daily (was lowered by covering provider since trouble sleeping Continue Suboxone 2/0.5 mg b.i.d. for cravings; patient feels the need for help with cravings and staying sober but is wanting to avoid getting overly addicted to Suboxone RT Axillary cyst: -seen by medicine PA: Recommend continuing bactim x 7 days and adding keflex 500mg qid -seen by surgcial consult: May be infected epidermal inclusion cyst vs hidradenitis suppurativa. Either way, recommend continuing antibiotic therapy for now without I&D as he seems to be improving. Time spent discussing smoking cessation with patient: 3 to 10 minutes Status at Discharge Functional status at discharge: independent ambulation Overall status at discharge: patient is back to baseline Time Spent with Patient Time attestation: Total time managing care of this patient today ____ minutes. Time spent: Less than 30 minutes Discharge Plan Discharge Anticipated Discharge Date/Time: 06/02/23 11:30 Patient Disposition: Home, Self-Care Discharge Diagnosis: MDD, recurrent, severe w/out psychosis, in full remission Referrals: [facility] Intake Virshawnit Jameson [Other] - 06/06/23 1:00 pm [facility] Psyche Eval Nahomi Lu [Other] - 07/07/23 9:45 am [facility] - 08/03/23 10:[address] [facility] [address] Smith [Other] - 06/16/23 1:45 pm [facility] [Other] - 3-5 Days (Hours: M 9-7 T-F 9-5 Sat 9-1) [facility] Dorcas Bolanos [Other] - 3-5 Days (Dorcas will be your nursing department chairperson until you are assigned a case advocate through [facility] [Other[facility] - 06/07/23 10:30 am PO Mishel Montgomery [Other] - 06/05/23 11:00 am Discharge Medications: New nicotine 21 mg/24 hr Patch 24 Hour 21 mg transdermal DAILY PRN (Reason: smoking cessation) 28 Days Qty: 28 0RF nicotine (polacrilex) 4 mg gum 4 mg buccal Q2H PRN (Reason: nicotine cravings) 30 Days Qty: 100 0RF clonidine HCl 0.1 mg Tablet 0.1 mg PO Q4H PRN (Reason: anxiety/insomnia) 30 Days Qty: 90 0RF Protocol: Hold for SBP< HOLD for SBP < : 90 fluoxetine 10 mg Capsule 10 mg PO DAILY 30 Days Qty: 30 0RF hydroxyzine HCl 50 mg Tablet 50 mg PO Q6H PRN (Reason: Anxiety) 30 Days Qty: 60 0RF omeprazole 40 mg Capsule,Delayed Release(Dr/Ec) 40 mg PO DAILY@0630 30 Days Qty: 30 0RF bupropion HCl 100 mg Tablet 300 mg PO DAILY 30 Days Qty: 90 0RF buprenorphine-naloxone [Suboxone] 4-1 mg Film 1 film sublingual BID@0900,1700 14 Days Qty: 28 0RF Continued amlodipine 10 mg tablet 10 mg PO DAILY 30 Days Qty: 30 0RF gabapentin 300 mg capsule 300 mg PO TID 30 Days Qty: 90 0RF Changed metformin 500 mg tablet 500 mg PO BIDWMEAL 30 Days Qty: 60 0RF No Action chlorthalidone 25 mg tablet 25 mg PO DAILY Discharge Orders: Discharge Order (Routine); Ordered 06/02/23 Ordered By: Cordell Ureña Diet: Diabetic diet Activity on Discharge: As tolerated Stand Alone Forms: Patient Portal Discharge page, Community Support Care Plan Goals: Maintain mood and safe behaviors Take medications as prescribed Continue to pursue sobriety Practice coping skills Continue with outpatient providers and reach out to them as needed Health Concerns: Mood stability and behaviors Sobriety Diabetes High Blood Pressure Plan of Treatment: Follow up with your PCP, psychiatric provider and other outpatient providers regarding above concerns Take medications as prescribed Assessment: Risk assessment at time of discharge:? Patient was interviewed prior to discharge and found to be fully oriented and without any SI or HI. Patient has insight and demonstrates good judgment in terms of wanting to pursue treatment. Patient is not in imminent risk of harm to self or others and has a safety plan that includes presenting to the closest ER or calling 911 if feeling unsafe.? Patient has been observed closely by nursing and unit staff throughout admission; patient has not engaged in any behaviors that suggest dangerousness to self or others and has demonstrated appropriate behaviors and impulse control Discharge Date/Time: 06/02/23 11:40
[2023-06-02] MEDS: Naloxone HCl Nasal TAKE HOME 4 MG SPRAY 8 MG NOSTRILALT (10:49)
[2023-06-02] MEDS: Nicotine Polacrilex 2 MG GUM 4 MG BUCCAL (10:49)
== END 2023-06-02 11:40 | disposition home or self-care (01) | DRG 751 ==
PROVIDERS: Psychiatry & Neurology Psychiatry; Admitting Provider Psychiatry & Neurology Psychiatry; Visit Provider Psychiatry & Neurology Psychiatry
DX: F33.1 Major depressive disorder, recurrent, moderate (principal); R45.851 Suicidal ideations; E11.9 Type 2 diabetes mellitus without complications; F11.20 Opioid dependence, uncomplicated; L03.111 Cellulitis of right axilla; F14.10 Cocaine abuse, uncomplicated; F17.210 Nicotine dependence, cigarettes, uncomplicated; J45.20 Mild intermittent asthma, uncomplicated; F19.10 Other psychoactive substance abuse, uncomplicated; L72.3 Sebaceous cyst; L73.2 Hidradenitis suppurativa; F43.10 Post-traumatic stress disorder, unspecified; I10 Essential (primary) hypertension; Z71.6 Tobacco abuse counseling; Z20.822 Contact with and (suspected) exposure to COVID-19; Z79.84 Long term (current) use of oral hypoglycemic drugs; Z79.899 Other long term (current) drug therapy
CPT/HCPCS: 0241U; 36415; 80048; 80053; 80061; 82550; 82565; 82607; 82746; 82947; 83036; 84439; 84443; 85025; 85652; 86140; 87651

== ENCOUNTER → 2023-05-23 14:20 | Outpatient (BNV) | payer OTHER, SELFPAY | PROVIDERS: Admitting Provider Psychiatry & Neurology Psychiatry; Visit Provider Psychiatry & Neurology Psychiatry | DX: F33.1 Major depressive disorder, recurrent, moderate (principal); E11.9 Type 2 diabetes mellitus without complications; L72.3 Sebaceous cyst; F11.90 Opioid use, unspecified, uncomplicated; F14.10 Cocaine abuse, uncomplicated; F43.10 Post-traumatic stress disorder, unspecified | CPT/HCPCS: 90792; 99232; 99238 ==

== ENCOUNTER → 2023-05-23 14:20 | Outpatient (BNV) | payer OTHER, SELFPAY | PROVIDERS: Admitting Provider Psychiatry & Neurology Psychiatry; Visit Provider Surgery | DX: F33.1 Major depressive disorder, recurrent, moderate (principal); L03.111 Cellulitis of right axilla | CPT/HCPCS: 99222; 99232 ==

== ENCOUNTER 2023-11-18 01:38 | Emergency (ER) | payer OTHER, SELFPAY ==
--- NOTE | 2023-11-18 | ECG_ITS ---
Test Reason : COCAINE USE Blood Pressure : / mmHG Vent. Rate : 071 BPM Atrial Rate : 071 BPM P-R Int : 144 ms QRS Dur : 094 ms QT Int : 392 ms P-R-T Axes : 026 027 015 degrees QTc Int : 425 ms Normal sinus rhythm Normal ECG No previous ECGs available Referred By: Ayala Grove Electronically Signed By:CHESTER WILLINGHAM
[2023-11-18 01:54] VITALS: BP 142/91; BP 154/78; PULSE 92; PULSE 95; RESP 18; TEMP 36.7; O2SAT 96; BMI 31.6
[2023-11-18 02:42] LABS: Basophils Percent Auto 0.2 % (0-2); Eosinophils Percent Auto 0.1 % (0-4); Hematocrit 41.7 % (42.0-52.0); Hemoglobin 14.6 g/dl (14.0-18.0); Imm Gran Abs Auto 0.03 X10*3/uL (0.00-0.03); Imm Gran Pct Auto 0.3 % (0.0-0.4); Lymphocytes Absolute Auto 1.7 X10*3/uL (1.2-4.9); Lymphocytes Percent Auto 17.5 % (20-40); MANUAL DIFF FLAG NO; Mean Corpuscular Hemoglobin 29.4 pg (27.0-33.0); Mean Corpuscular Volume 83.9 fL (80.0-98.0); Mean Platelet Volume 10.6 fL (9.4-12.4); Monocytes Absolute Auto 0.6 X10*3/uL (0.1-1.2); Monocytes Percent Auto 6.1 % (2-11); Neutrophils Absolute Auto 7.1 x10*3/uL (2.0-8.3); Neutrophils Percent Auto 75.8 % (45-73); Platelet Count 234 X10*3/uL (160-400); Red Blood Count 4.97 X10*6/uL (4.60-5.80); White Blood Count 9.4 X10*3/uL (4.8-10.8)
[2023-11-18 02:43] LABS: Appearance Urine Clear; Color Urine Dark Yellow; Glucose Urine UA Negative (Negative); Leukocyte Esterase Urine Trace (Negative); Nitrite Urine Negative (Negative); PH 7.5 (5.0-9.0); Specific Gravity - Urine 1.025 (1.005-1.025); UMIC TRIGGER UACC YES; Urine Blood Negative (Negative); Urine Ketones Negative (Negative); Urine Protein 30 (1+) mg/dL (Neg-Trace)
[2023-11-18 02:49] LABS: Amphetamine Screen Urine POSITIVE (Not Detect); Barbiturates, Urine Not Detected (Not Detect); Benzodiazepines Screen Urine Not Detected (Not Detect); Cannabinoid Screen Urine Not Detected (Not Detect); Cocaine Screen Urine POSITIVE (Not Detect); Fentanyl, urine Not Detected (Not Detect); Opiate Screen Urine Not Detected (Not Detect); Phencyclidine Screen Urine Not Detected (Not Detect)
[2023-11-18 02:54] LABS: Ethanol < 10 mg/dL
[2023-11-18] MEDS: Ibuprofen 600 MG TABLET PO (02:54)
[2023-11-18 02:56] LABS: Alanine Aminotransferase 21 U/L (0-40); Albumin Level 4.3 g/dL (3.5-5.0); Alkaline Phosphatase 97 U/L (39-117); Anion Gap 14 (12-20); Aspartate Amino Transferase 21 U/L (5-37); Bilirubin Total 0.6 mg/dL (0.0-1.0); Blood Urea Nitrogen 19 mg/dL (9-16); Calcium 9.2 mg/dL (8.4-10.2); Carbon Dioxide 30 mmol/L (22-29); Chloride 98 mmol/L (96-108); Creatinine Clr Calc Pharmacy 101.1; Estimated Glomerular Filt Rate > 60; Glucose Random 104 mg/dL (60-115); Potassium 3.8 mmol/L (3.3-5.1); Sodium 138 mmol/L (135-145); Total Protein 8.5 g/dL (6.5-8.0)
[2023-11-18 03:01] LABS: Acetaminophen LAB < 3 mcg/mL (<30); Salicylate < 5.0 mg/dL (15-30)
[2023-11-18 03:11] LABS: Bacteria Urine None Seen (None Seen); RBC Urine 0-2 /HPF (0-2); Squamous Epithelial Cell Urine 0-2 /HPF (0-2); UACC Culture Trigger YES
--- NOTE | 2023-11-18 04:51 | PC.NURSE ---
patient awoke and reported missing suboxone dose and sweating as result, t/w speculates patient may be referred to adictions medicine should he remain, or refer to detox (unclear if current script)
--- NOTE | 2023-11-18 05:09 | ED_ITS ---
HPI - Psych General Chief Complaint: Psychiatric Symptoms Stated Complaint: SI Time Seen by Provider: 11/18/23 05:00 Source: patient Mode of arrival: EMS Limitations: no limitations History of Present Illness HPI Narrative: Patient comes to the emergency room complaining of suicidal ideation. Patient was recently released from [facility], patient states he has been using cocaine and amphetamines, patient complained of suicidal ideation. Related Data Home Medications Medication Instructions Recorded Confirmed chlorthalidone 25 mg tablet 25 mg PO DAILY 05/23/23 05/23/23 Previous Rx's Medication Instructions Recorded amlodipine 10 mg tablet 10 mg PO DAILY 30 days #30 tabs 06/02/23 buprenorphine 4 mg-naloxone 1 mg 1 film sublingual BID@0900,1700 14 06/02/23 sublingual film (Suboxone) days #28 ea bupropion HCl 100 mg tablet 300 mg (3 x 100 mg) PO DAILY 30 06/02/23 days #90 tabs clonidine HCl 0.1 mg tablet 0.1 mg PO Q4H PRN anxiety/insomnia 06/02/23 30 days #90 tabs fluoxetine 10 mg capsule 10 mg PO DAILY 30 days #30 caps 06/02/23 gabapentin 300 mg capsule 300 mg PO TID 30 days #90 caps 06/02/23 hydroxyzine HCl 50 mg tablet 50 mg PO Q6H PRN Anxiety 30 days 06/02/23 #60 tabs metformin 500 mg tablet 500 mg PO BIDWMEAL 30 days #60 tabs 06/02/23 nicotine (polacrilex) 4 mg gum 4 mg buccal Q2H PRN nicotine 06/02/23 cravings 30 days #100 ea nicotine 21 mg/24 hr daily 21 mg transdermal DAILY PRN 06/02/23 transdermal patch smoking cessation 28 days #28 ea omeprazole 40 mg capsule,delayed 40 mg PO DAILY@0630 30 days #30 06/02/23 release caps Allergies Allergy/AdvReac Type Severity Reaction Status Date / Time No Known Allergies Allergy Verified 05/23/23 16:43 Review of Systems 2 Review of Systems: Constitutional : No Weight loss, No Fever, No Chills, No Night Sweats, No Fatigue, No Malaise ENT/Mouth : No Hearing loss, No Ear Pain, No Nasal Congestion, No Sinus Pain, No Hoarseness, No sore throat, No Rhinorrhea, No Swallowing Difficulty Eyes: No Eye Pain, No Swelling, No Redness, No Foreign Body, No Discharge, No Vision Changes Cardiovascular : No Chest Pain, No SOB, No Dyspnea on Exertion, No Orthopnea, No Edema, No Palpitations Respiratory : No Cough, No Sputum, No Wheezing, No Smoke Exposure, No Dyspnea Gastrointestinal : No Nausea, No Vomiting, No Diarrhea, No Constipation, No abdominal Pain, No Hematochezia, No Melena Genitourinary : no irregular bleeding, No Dysuria, No Urinary Frequency, No Hematuria, No Urinary Incontinence, No Urgency, No Flank Pain, No Urinary Flow Changes, No Hesitancy Musculoskeletal : No joint pain, No Myalgias, No Joint Swelling Skin : No Skin Lesions, No rash Neuro : No Weakness, No Numbness, No Paresthesias, No Loss of Consciousness, No Dizziness, No Headache Psych : Complaining of anxiety and depression, complaining of suicidal ideation, no homicidal ideation Heme/Lymph: No Bruising, No Bleeding,No Lymphadenopathy Endocrine : No Polyuria, No Polydipsia, No Temperature Intolerance PMFSH Past Medical History Medical History Opioid use disorder Cocaine use disorder PTSD (post-traumatic stress disorder) MDD (major depressive disorder), recurrent episode, moderate Cigarette smoker Polysubstance abuse Hypertension Chronic low back pain Asthma Non-insulin dependent type 2 diabetes mellitus Social History Social History Household Members: Other Household Members Other:: Sober House Housing: Other Housing Other:: Sober House Do you presently have visiting nurse or other home services: No Patient Tobacco Use Status: Current everyday Tobacco user Tobacco use type: Cigarette Cigarette Packs Per Day: 0.5 Cigarettes Per Day: 10.0 Years Smoked: 20 Substance Use Type: Heroin Advance Directives: No Advance Directives Information Provided: Yes service: No Sexual orientation: Straight/Heterosexual Physical Exam 2 Vital Signs: Vital Signs: Last Vital Signs Temp 98.1 F 11/18/23 01:54 Pulse 92 11/18/23 01:54 Resp 18 11/18/23 01:54 BP 142/91 H 11/18/23 01:54 Pulse Ox 96 11/18/23 01:54 O2 Del Method Room Air 11/18/23 01:54 BMI result Body Mass Index 31.6 Const: Other: Appearance: Alert. Oriented X3. No acute distress. Eyes: Pupils equal, round and reactive to light. ENT: Pharynx normal. Neck: Normal inspection. Neck supple. No lymph nodes noted. No crepitus CVS: Normal heart rate and rhythm. Pulses normal. Normal S1 and S2 Respiratory: No respiratory distress. Breath sounds normal. No Wheezing. No rales Abdomen: Soft and nontender. No rigidity. No distention. Skin: Skin warm and dry. Normal skin color. Normal skin turgor. Extremities: No lower extremity edema. No Lacerations. No Rash Neuro: Oriented X 3. No motor deficit. No sensory deficit. Moving all extremities. No slurred speech. CN 2 through 12 grossly intact Psych: calm, cooperative, normal affect Medications Administered Discontinued Medications Generic Name Dose Route Start Last Admin Trade Name Freq PRN Reason Stop Dose Admin Ibuprofen 600 mg 11/18/23 02:51 11/18/23 02:54 Ibuprofen 600 Mg Tablet PO 11/18/23 02:52 600 mg ONCE ONE Administration Medical Decision Making Medical Decision Making [facility] Narrative: -my interpretation of labs: Normal hematology, normal chemistry, no UTI, U tox positive for amphetamines and cocaine -care team consult pending -physician observation started at 05:00 Differential Diagnosis Differential Diagnoses: The differential diagnosis associated with the presentation includes (Anxiety, depression, polysubstance abuse, homeless) Lab Data [facility] Lab Attestation statement: I reviewed the patient's lab results. 11/18/23 02:14 11/18/23 02:14 Labs: Lab Results 11/18/23 Range/Units 02:14 WBC 9.4 (4.8-10.8) X10*3/uL RBC 4.97 (4.60-5.80) X10*6/uL Hgb 14.6 (14.0-18.0) g/dl Hct 41.7 L (42.0-52.0) % MCV 83.9 (80.0-98.0) fL MCH 29.4 (27.0-33.0) pg MCHC 35.0 (31.0-36.0) g/dl RDW 13.0 (11.0-16.0) % Plt Count 234 (160-400) X10*3/uL MPV 10.6 (9.4-12.4) fL Immature Gran % (Auto) 0.3 (0.0-0.4) % Neut % (Auto) 75.8 H (45-73) % Lymph % (Auto) 17.5 L (20-40) % [place] % (Auto) 6.1 (2-11) % Eos % (Auto) 0.1 (0-4) % Baso % (Auto) 0.2 (0-2) % Lymph # (Auto) 1.7 (1.2-4.9) X10*3/uL [place] # (Auto) 0.6 (0.1-1.2) X10*3/uL Eos # (Auto) 0.0 (0.0-0.4) X10*3/uL Baso # (Auto) 0.0 (0.0-0.2) X10*3/uL Abs Immat Gran (auto) 0.03 (0.00-0.03) X10*3/uL Absolute Neuts (auto) 7.1 (2.0-8.3) x10*3/uL Absolute Nucleated RBC 0.000 (0.0-0.012) X10*3/uL Nucleated RBC % (auto) 0.0 (0.0-0.2) /100WBC Sodium 138 (135-145) mmol/L Potassium 3.8 D (3.3-5.1) mmol/L Chloride 98 (96-108) mmol/L Carbon Dioxide 30 H (22-29) mmol/L Anion Gap 14 (12-20) BUN 19 H (9-16) mg/dL Creatinine 1.06 (0.5-1.4) mg/dL Estim Creat Clear Calc 101.1 Estimated GFR > 60 Random Glucose 104 (60-115) mg/dL Calcium 9.2 (8.4-10.2) mg/dL Total Bilirubin 0.6 (0.0-1.0) mg/dL AST 21 (5-37) U/L ALT 21 (0-40) U/L Alkaline Phosphatase 97 (39-117) U/L Total Protein 8.5 H (6.5-8.0) g/dL Albumin 4.3 (3.5-5.0) g/dL Urine Color Dark Yellow Urine Appearance Clear Urine pH 7.5 (5.0-9.0) Ur Specific [place] 1.025 (1.005-1.025) Urine Protein 30 (1+) H (Neg-Trace) mg/dL Urine Glucose (UA) Negative (Negative) mg/dL Urine Ketones Negative (Negative) mg/dL Urine Blood Negative (Negative) Urine Nitrite Negative (Negative) Ur Leukocyte Esterase Trace H (Negative) Urine RBC 0-2 (0-2) /HPF Urine WBC 6-10 H (0-5) /HPF Ur Squamous Epith Cells 0-2 (0-2) /HPF Urine Bacteria None Seen (None Seen) Hyaline Casts 3-5 (0-2) /LPF Salicylates < 5.0 L (15-30) mg/dL Urine Opiates Screen Not Detected (Not Detect) Urine Fentanyl Screen Not Detected (Not Detect) Acetaminophen < 3 (<30) mcg/mL Ur Barbiturates Screen Not Detected (Not Detect) Ur Phencyclidine Scrn Not Detected (Not Detect) Ur Amphetamines Screen POSITIVE H (Not Detect) U Benzodiazepines Scrn Not Detected (Not Detect) Urine Cocaine Screen POSITIVE H (Not Detect) U Marijuana (THC) Screen Not Detected (Not Detect) Ethyl Alcohol < 10 mg/dL Discharge Plan Discharge Clinical Impression: Suicidal ideation Patient Disposition: Still a Patient Prescriptions: No Action chlorthalidone 25 mg tablet 25 mg PO DAILY nicotine 21 mg/24 hr Patch 24 Hour 21 mg transdermal DAILY PRN (Reason: smoking cessation) 28 Days Qty: 28 0RF nicotine (polacrilex) 4 mg gum 4 mg buccal Q2H PRN (Reason: nicotine cravings) 30 Days Qty: 100 0RF clonidine HCl 0.1 mg Tablet 0.1 mg PO Q4H PRN (Reason: anxiety/insomnia) 30 Days Qty: 90 0RF Protocol: Hold for SBP< HOLD for SBP < : 90 fluoxetine 10 mg Capsule 10 mg PO DAILY 30 Days Qty: 30 0RF hydroxyzine HCl 50 mg Tablet 50 mg PO Q6H PRN (Reason: Anxiety) 30 Days Qty: 60 0RF omeprazole 40 mg Capsule,Delayed Release(Dr/Ec) 40 mg PO DAILY@0630 30 Days Qty: 30 0RF metformin 500 mg tablet 500 mg PO BIDWMEAL 30 Days Qty: 60 0RF amlodipine 10 mg tablet 10 mg PO DAILY 30 Days Qty: 30 0RF gabapentin 300 mg capsule 300 mg PO TID 30 Days Qty: 90 0RF bupropion HCl 100 mg Tablet 300 mg PO DAILY 30 Days Qty: 90 0RF buprenorphine-naloxone [Suboxone] 4-1 mg Film 1 film sublingual BID@0900,1700 14 Days Qty: 28 0RF Interventions: [place]-Suicide Risk Severity Scale Last Done: 11/18/23 03:15
--- NOTE | 2023-11-18 10:32 | PC.NURSE ---
Meds verified with Tata at [facility] in [place]
--- NOTE | 2023-11-18 11:53 | PHA.MEDREC ---
Pharmacy Consult ? Medication Reconciliation Pharmacy has completed the medication reconciliation. Spoke to patient to confirm meds. Pt recalled most meds. Called [facility] inpatient pharmacy to confirm based off discharge med list, which was given out on yesterday, 11/17/23.
[2023-11-18 12:06] VITALS: BP 118/66; PULSE 71; RESP 14; TEMP 36.6; O2SAT 96
[2023-11-18] MEDS: Omeprazole 20 MG CAPSULE.DR PO (12:25)
[2023-11-18] MEDS: Nicotine 7 MG PATCH.TD24 TRANSDERMA (12:25)
[2023-11-18] MEDS: Gabapentin 400 MG CAPSULE PO ×3 (12:26→19:17)
[2023-11-18] MEDS: hydroCHLOROthiazide 12.5 MG TABLET PO (12:26)
[2023-11-18] MEDS: metFORMIN HCl 500 MG TABLET PO ×2 (12:26→16:08)
[2023-11-18] MEDS: Dextroamphetamine/Amphetamine XR 10 MG CAP.ER.24H PO (12:26)
[2023-11-18 12:28] LABS: COVID-19 Test Negative (Negative); IDNOW Serial# 08D9AD1C
[2023-11-18] MEDS: amLODIPine Besylate 10 MG TABLET PO (12:30)
[2023-11-18] MEDS: Buprenorphine/Naloxone 8/2 mg FILM 1 FILM SUBLINGUAL ×2 (12:35→19:17)
[2023-11-18] MEDS: buPROPion HCL 100 MG TABLET PO ×2 (13:27→19:18)
[2023-11-18 14:49] VITALS: RESP 16
[2023-11-18 16:26] LABS: Glucose, Whole Blood 115 mg/dL (60-115)
--- NOTE | 2023-11-18 16:33 | PC.NURSE ---
PT reports feeling hot and cold. Has not had POC checked. POC 115. PT reports he missed his dose of Suboxone last evening and today his dose was late due to verification and feels his symptoms are related to that. Laying in bed, in no apparent distress, resp even and unlabored. Requested to take shower.
[2023-11-18] MEDS: cloNIDine HCL 0.2 MG TABLET PO (19:17)
[2023-11-18 19:18] VITALS: BP 141/95; PULSE 84; RESP 14; TEMP 36.6; O2SAT 96
--- NOTE | 2023-11-18 19:19 | PC.NURSE ---
Pt to be discharged to respite services, CARE team calling chris at this time. Verbal order from Dr. Tan to give all 9pm medications at this time so patient received his nighttime doses
--- NOTE | 2023-11-18 19:25 | PC.NURSE ---
PT preparing for dishcarge, per Dr. Tan, ok to give evening meds @ this time including Suboxone.
== END 2023-11-18 19:34 | disposition home or self-care (01) ==
PROVIDERS: Emergency Medicine; Emergency Provider Emergency Medicine
DX: R45.851 Suicidal ideations (principal); F14.10 Cocaine abuse, uncomplicated; F17.210 Nicotine dependence, cigarettes, uncomplicated; Z71.51 Drug abuse counseling and surveillance of drug abuser; Z79.899 Other long term (current) drug therapy; Z71.6 Tobacco abuse counseling; Z11.52 Encounter for screening for COVID-19; Z20.822 Contact with and (suspected) exposure to COVID-19
CPT/HCPCS: 36415; 80053; 80143; 80179; 80307; 81001; 82947; 85025; 87086; 87635; 93005; 99285; S9485

== ENCOUNTER → 2023-11-18 11:59 | Outpatient (BNV) | payer OTHER, SELFPAY | PROVIDERS: Emergency Provider Emergency Medicine; Visit Provider Internal Medicine | DX: R45.851 Suicidal ideations (principal); F14.10 Cocaine abuse, uncomplicated | CPT/HCPCS: 93010 ==

== ENCOUNTER 2023-12-31 09:24 | Inpatient (IN) | payer OTHER, SELFPAY ==
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
[2023-12-31 09:36] VITALS: BP 150/70; PULSE 116; O2SAT 97
[2023-12-31 09:55] VITALS: BP 135/82; PULSE 88; RESP 16; TEMP 37.1; O2SAT 98; BMI 34.5
--- NOTE | 2023-12-31 10:10 | PC.NURSE ---
given po fluids- states he had just voided prior to coming so needs fluids prior to urine.
[2023-12-31 10:21] LABS: MANUAL DIFF FLAG NO
[2023-12-31 10:22] LABS: Basophils Percent Auto 0.3 % (0-2); Eosinophils Percent Auto 0.1 % (0-4); Hematocrit 41.6 % (42.0-52.0); Hemoglobin 14.6 g/dl (14.0-18.0); Imm Gran Abs Auto 0.04 X10*3/uL (0.00-0.03); Imm Gran Pct Auto 0.4 % (0.0-0.4); Lymphocytes Absolute Auto 1.4 X10*3/uL (1.2-4.9); Lymphocytes Percent Auto 13.9 % (20-40); Mean Corpuscular HGB Conc 35.1 g/dl (31.0-36.0); Mean Corpuscular Hemoglobin 28.7 pg (27.0-33.0); Mean Corpuscular Volume 81.7 fL (80.0-98.0); Mean Platelet Volume 10.1 fL (9.4-12.4); Monocytes Absolute Auto 0.7 X10*3/uL (0.1-1.2); Monocytes Percent Auto 7.5 % (2-11); Neutrophils Absolute Auto 7.6 x10*3/uL (2.0-8.3); Neutrophils Percent Auto 77.8 % (45-73); Platelet Count 187 X10*3/uL (160-400); Red Blood Count 5.09 X10*6/uL (4.60-5.80); Red Cell Distribution Width 12.2 % (11.0-16.0); White Blood Count 9.8 X10*3/uL (4.8-10.8)
[2023-12-31 10:38] LABS: Anion Gap 16 (12-20); Blood Urea Nitrogen 16 mg/dL (9-16); Calcium 9.1 mg/dL (8.4-10.2); Carbon Dioxide 27 mmol/L (22-29); Chloride 100 mmol/L (96-108); Creatinine Clr Calc Pharmacy 108.6; Estimated Glomerular Filt Rate > 60; Ethanol < 10 mg/dL; Glucose Random 137 mg/dL (60-115); Potassium 3.6 mmol/L (3.3-5.1); Sodium 139 mmol/L (135-145)
[2023-12-31 10:44] LABS: COVID-19 Test Negative (Negative); IDNOW Serial# 9DB6401D
[2023-12-31] MEDS: amLODIPine Besylate 10 MG TABLET PO (11:27)
[2023-12-31] MEDS: Acetaminophen 325 MG TABLET 975 MG PO (11:39)
[2023-12-31 12:24] VITALS: RESP 14
--- NOTE | 2023-12-31 12:36 | PC.NURSE ---
Assumed care of patient at 1237, patient is calm and cooperative, respirations even and unlabored, offers no complaints at this time. Plan of care for med clearance and then CARE eval
[2023-12-31 12:49] LABS: Appearance Urine Clear; Color Urine Dark Yellow; Glucose Urine UA Negative (Negative); Leukocyte Esterase Urine Negative (Negative); Nitrite Urine Negative (Negative); PH 5.5 (5.0-9.0); Specific Gravity - Urine >= 1.030 (1.005-1.025); Urine Blood Negative (Negative); Urine Ketones 15 mg/dL (Negative); Urine Protein Trace mg/dL (Neg-Trace)
[2023-12-31 12:55] LABS: Amphetamine Screen Urine POSITIVE (Not Detect); Barbiturates, Urine Not Detected (Not Detect); Benzodiazepines Screen Urine Not Detected (Not Detect); Cannabinoid Screen Urine Not Detected (Not Detect); Cocaine Screen Urine POSITIVE (Not Detect); Fentanyl, urine POSITIVE (Not Detect); Opiate Screen Urine Not Detected (Not Detect); Phencyclidine Screen Urine Not Detected (Not Detect)
--- NOTE | 2023-12-31 18:58 | PC.NURSE ---
patient appears to be resting presently, appears in no distress
[2023-12-31 20:10] VITALS: BP 132/81; PULSE 71; RESP 18; TEMP 37.1; O2SAT 99
--- NOTE | 2024-01-01 | ECG_ITS ---
Test Reason : QT INTERVAL Blood Pressure : / mmHG Vent. Rate : 063 BPM Atrial Rate : 063 BPM P-R Int : 128 ms QRS Dur : 094 ms QT Int : 388 ms P-R-T Axes : 036 050 033 degrees QTc Int : 397 ms Normal sinus rhythm Normal ECG When compared with ECG of 18-NOV-2023 11:59, No significant change was found Referred By: Harper Patino Electronically Signed By:Ramesh Fatima
[2024-01-01 06:22] VITALS: RESP 17
--- NOTE | 2024-01-01 07:20 | PC.NURSE ---
PT IS SLEEPING RESP EVEN AND UNLABORED. BREAKFAST IS IN THE ROOM.
[2024-01-01 07:30] VITALS: RESP 16
--- NOTE | 2024-01-01 09:10 | PC.NURSE ---
PT STATES THAT HE IS VERY DEPRESSED AND WOULD NOT ANSWER THE QUESTION OF +SI/HI. WILL CONTINUE TO MONITOR.
[2024-01-01 09:11] LABS: Glucose, Whole Blood 115 mg/dL (60-115)
[2024-01-01 09:24] VITALS: BP 139/91; PULSE 72; TEMP 36.9; O2SAT 97
--- NOTE | 2024-01-01 10:51 | PC.NURSE ---
PT GOES TO [facility] ON [facility]) AND [facility] ON [facility] ([facility]). MED REC HAS BEEN DONE TO THE BEST OF THIS RN'S ABILITY.
--- NOTE | 2024-01-01 12:14 | MHC.CARE ---
The RAD Team conducted a statewide Dual bed search for this individual today. T/w called [facility], [facility], [facility], [place] and [facility] . No male beds were available. Statewide dual bed search exhausted for today and will continue tomorrow is deemed necessary.
--- NOTE | 2024-01-01 12:37 | PC.NURSE ---
Assumed care of patient at 1100, patient is resting on stretcher, eyes closed, appears to be in no apparent distress. continue plan of care for dual diagnosis bedsearch
--- NOTE | 2024-01-01 15:33 | HE.PHANOTE ---
RE: SUBOXONE DOSE Tamara (nurse) spoke to Jose (pharmacist) at [facility] on 01/01/24 @0810. Suboxone 8/2 mg 1 film bid, patient states last dose was 12/30/23.
[2024-01-01 17:00] VITALS: BP 171/98; PULSE 71; RESP 18; TEMP 36.6; O2SAT 97
[2024-01-01] MEDS: hydroCHLOROthiazide 12.5 MG TABLET PO (17:49)
[2024-01-01 20:10] VITALS: BP 140/80; PULSE 65; RESP 14; TEMP 36.4; O2SAT 99
[2024-01-01] MEDS: cloNIDine HCL 0.2 MG TABLET PO (22:06)
[2024-01-01] MEDS: Gabapentin 400 MG CAPSULE PO (22:06)
[2024-01-01] MEDS: Buprenorphine/Naloxone 8/2 mg FILM 1 FILM SUBLINGUAL (22:07)
[2024-01-01] MEDS: hydrOXYzine HCL 25 MG TABLET PO (22:51)
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
[2024-01-02 08:22] VITALS: BP 124/74; PULSE 60; RESP 14; TEMP 36.4; O2SAT 95
[2024-01-02] MEDS: hydroCHLOROthiazide 12.5 MG TABLET PO (08:53)
[2024-01-02] MEDS: amLODIPine Besylate 5 MG TABLET PO (08:54)
[2024-01-02] MEDS: Cyanocobalamin (Vitamin B-12) 500 MCG TABLET 250 MCG PO (08:54)
[2024-01-02] MEDS: Gabapentin 400 MG CAPSULE PO ×3 (08:54→21:23)
[2024-01-02] MEDS: metFORMIN HCl 500 MG TABLET PO ×2 (08:54→21:23)
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
[2024-01-02] MEDS: Nicotine 7 MG PATCH.TD24 TRANSDERMA (09:42)
[2024-01-02] MEDS: Buprenorphine/Naloxone 8/2 mg FILM 1 FILM SUBLINGUAL ×2 (09:42→16:50)
[2024-01-02] MEDS: Acetaminophen 325 MG TABLET 650 MG PO (13:36)
[2024-01-02 14:40] VITALS: BP 126/80; PULSE 93
[2024-01-02] MEDS: cloNIDine HCL 0.1 MG TABLET PO (14:48)
[2024-01-02] MEDS: buPROPion HCL 100 MG TABLET PO (16:50)
[2024-01-02 21:15] VITALS: BP 132/77; PULSE 86; RESP 16; TEMP 36.4; O2SAT 96
[2024-01-02] MEDS: cloNIDine HCL 0.1 MG TABLET 0.3 MG PO (21:22)
[2024-01-02] MEDS: hydrOXYzine HCL 25 MG TABLET PO (21:23)
[2024-01-03 08:53] VITALS: BP 108/63; PULSE 57; RESP 18; TEMP 36.6; O2SAT 94
[2024-01-03] MEDS: buPROPion HCL 100 MG TABLET PO ×2 (09:01→16:12)
[2024-01-03] MEDS: cloNIDine HCL 0.1 MG TABLET PO (09:01)
[2024-01-03] MEDS: Cyanocobalamin (Vitamin B-12) 500 MCG TABLET 250 MCG PO (09:01)
[2024-01-03] MEDS: hydroCHLOROthiazide 12.5 MG TABLET PO (09:01)
[2024-01-03] MEDS: Gabapentin 400 MG CAPSULE PO ×3 (09:01→21:34)
[2024-01-03] MEDS: metFORMIN HCl 500 MG TABLET PO ×2 (09:02→21:34)
[2024-01-03] MEDS: Buprenorphine/Naloxone 8/2 mg FILM 1 FILM SUBLINGUAL ×2 (09:02→17:32)
[2024-01-03] MEDS: amLODIPine Besylate 5 MG TABLET PO (09:02)
[2024-01-03] MEDS: FLUoxetine HCl 20 MG CAPSULE PO (09:02)
--- NOTE | 2024-01-03 15:54 | P.PNPSI_ITS ---
Subjective Subjective Date of Service: 01/03/24 Reason For Visit: SI Interim History: calm, cooperative. vague, feeling fine. just a little tired, waiting to get used to meds. declines any changes in medications. Mental Status Exam Mental Status Exam Narrative: adequately dressed and groomed. numerous arm tattoos. no PMA/PMR. cooperative. speech nml rate, amount, latency. thoughts linear and logical. affect constricted, normo-intense, non-labile. mood not assessed. no SI/SIBI/HI/AVH expressed. Diagnostics Vital Signs (24Hr): Vital Signs - 24 hr 01/02/24 21:15 01/03/24 08:53 Temperature 97.5 F 97.9 F Pulse Rate 86 57 Respiratory Rate 16 18 Blood Pressure 132/77 108/63 Pulse Oximetry 96 94 Oxygen Delivery Method Room Air BMI result Body Mass Index 34.5 Labs 12/31/23 10:15 12/31/23 10:15 Medications Medications Current Medications Acetaminophen (Acetaminophen 325 Mg Tablet) 650 mg PO Q6H PRN PRN Reason: Headache/Pain Mild Scale (1-3) Last Admin: 01/02/24 13:36 Dose: 650 mg Al Hydroxide/Mg Hydroxide (Magnesium Hydrox/Alum Hydrox 30 Ml Oral.Susp) 30 ml PO Q6H PRN PRN Reason: Heartburn/Nausea Amlodipine Besylate (Amlodipine Besylate 5 Mg Tablet) 5 mg PO DAILY [facility]; Protocol Last Admin: 01/03/24 09:02 Dose: 5 mg Buprenorphine/Naloxone (Buprenorphine/Naloxone 8/2 Mg Film) 1 film SUBLINGUAL BID@0900,1700 [facility] Last Admin: 01/03/24 09:02 Dose: 1 film Bupropion HCl (Bupropion Hcl 100 Mg Tablet) 100 mg PO BID@0900,1600 [facility] Last Admin: 01/03/24 09:01 Dose: 100 mg Clonidine HCl (Clonidine Hcl 0.1 Mg Tablet) 0.3 mg PO BEDTIME [facility]; Protocol Last Admin: 01/02/24 21:22 Dose: 0.3 mg Clonidine HCl (Clonidine Hcl 0.1 Mg Tablet) 0.1 mg PO BID@0900,1500 [facility]; Protocol Last Admin: 01/03/24 09:01 Dose: 0.1 mg Cyanocobalamin (Cyanocobalamin (Vitamin B-12) 500 Mcg Tablet) 250 mcg PO DAILY [facility] Last Admin: 01/03/24 09:01 Dose: 250 mcg Fluoxetine HCl (Fluoxetine Hcl 20 Mg Capsule) 20 mg PO DAILY@0900 [facility] Last Admin: 01/03/24 09:02 Dose: 20 mg Gabapentin (Gabapentin 400 Mg Capsule) 400 mg PO TID [facility] Last Admin: 01/03/24 09:01 Dose: 400 mg Hydrochlorothiazide (Hydrochlorothiazide 12.5 Mg Tablet) 12.5 mg PO DAILY@0900 [facility]; Protocol Last Admin: 01/03/24 09:01 Dose: 12.5 mg Hydroxyzine HCl (Hydroxyzine Hcl 25 Mg Tablet) 25 mg PO Q6H PRN PRN Reason: Anxiety Last Admin: 01/02/24 21:23 Dose: 25 mg Magnesium Hydroxide (Milk Of Magnesia 30 Ml Oral.Susp) 30 ml PO DAILY PRN PRN Reason: Constipation Metformin HCl (Metformin Hcl 500 Mg Tablet) 500 mg PO BID [facility] Last Admin: 01/03/24 09:02 Dose: 500 mg Nicotine (Nicotine 7 Mg Patch.Td24) 7 mg TRANSDERMA Q24H [facility] Last Admin: 01/02/24 09:42 Dose: 7 mg Nicotine Polacrilex (Nicotine Polacrilex 2 Mg Gum) 4 mg BUCCAL Q2H PRN PRN Reason: nicotine cravings Trazodone HCl (Trazodone Hcl 50 Mg Tablet) 50 mg PO BEDTIME MRX1 PRN PRN Reason: Insomnia Allergies Allergies Allergy/AdvReac Type Severity Reaction Status Date / Time No Known Allergies Allergy Verified 01/01/24 11:47 Assessment & Plan Assessment & Plan (1) Opioid use disorder: Status: Acute Code(s): F11.90 - Opioid use, unspecified, uncomplicated (2) Cocaine use disorder: Status: Acute Code(s): F14.10 - Cocaine abuse, uncomplicated (3) PTSD (post-traumatic stress disorder): Status: Acute Code(s): F43.10 - Post-traumatic stress disorder, unspecified (4) MDD (major depressive disorder), recurrent episode, moderate: Status: Acute Code(s): F33.1 - Major depressive disorder, recurrent, moderate Plan 01/02: restart/continue previous outpt medications regimen aside from stimulant. pt has polysubstance use disorder, including of cocaine. stimulants are relatively contraindicated in this patient. willing to try clonidine scheduled during the day and increased dosing at HS for anxiety/insomnia. refer to [facility] for readmission. 01/03: some tiredness in morning and during day, will continue current regimen for now. awaiting word from [facility]. Reason for continued inpatient stay Substantial Risk for: inability to function and rapid decompensation Time Spent With Patient Time: Total time managing care of this patient today __25__ minutes.
[2024-01-03] MEDS: Nicotine 7 MG PATCH.TD24 TRANSDERMA (16:11)
[2024-01-03 21:15] VITALS: BP 126/76; PULSE 72; RESP 16; TEMP 36.6; O2SAT 98
[2024-01-03] MEDS: cloNIDine HCL 0.1 MG TABLET 0.3 MG PO (21:32)
[2024-01-03] MEDS: hydrOXYzine HCL 25 MG TABLET PO (21:33)
[2024-01-03] MEDS: Acetaminophen 325 MG TABLET 650 MG PO (21:33)
--- NOTE | 2024-01-03 21:36 | PC.NURSE ---
only accepted 0.1 mg of HS clonidine
[2024-01-03] MEDS: Nicotine Polacrilex 2 MG GUM 4 MG BUCCAL (22:01)
[2024-01-04 07:50] VITALS: BP 117/65; PULSE 54; RESP 12; TEMP 36.7; O2SAT 97
[2024-01-04 08:20] LABS: Glucose, Whole Blood 106 mg/dL (60-115)
[2024-01-04] MEDS: metFORMIN HCl 500 MG TABLET PO ×2 (08:42→20:44)
[2024-01-04] MEDS: cloNIDine HCL 0.1 MG TABLET PO (08:42)
[2024-01-04] MEDS: Gabapentin 400 MG CAPSULE PO ×3 (08:43→20:44)
[2024-01-04] MEDS: amLODIPine Besylate 5 MG TABLET PO (08:43)
[2024-01-04] MEDS: Cyanocobalamin (Vitamin B-12) 500 MCG TABLET 250 MCG PO (08:43)
[2024-01-04] MEDS: buPROPion HCL 100 MG TABLET PO ×2 (08:43→16:19)
[2024-01-04] MEDS: hydroCHLOROthiazide 12.5 MG TABLET PO (08:43)
[2024-01-04] MEDS: FLUoxetine HCl 20 MG CAPSULE PO (08:43)
[2024-01-04] MEDS: Buprenorphine/Naloxone 8/2 mg FILM 1 FILM SUBLINGUAL ×2 (08:44→17:11)
[2024-01-04] MEDS: Acetaminophen 325 MG TABLET 650 MG PO (09:06)
[2024-01-04 10:46] VITALS: BMI 35.4
--- NOTE | 2024-01-04 15:45 | P.PNPSI_ITS ---
Subjective Subjective Date of Service: 01/04/24 Reason For Visit: SI Interim History: stable. feeling a bit sedated, clonidine dosing decreased. per staff, blunted, withdrawn. c/o sedation from clonidine. accepted for [facility] tomorrow. Mental Status Exam Mental Status Exam Narrative: adequately dressed and groomed. numerous arm tattoos. no PMA/PMR. cooperative. speech nml rate, amount, latency. thoughts linear and logical. affect constricted, normo-intense, non-labile. mood not assessed. no SI/SIBI/HI/AVH expressed. Diagnostics Vital Signs (24Hr): Vital Signs - 24 hr 01/03/24 21:15 01/04/24 07:50 Temperature 97.9 F 98.1 F Pulse Rate 72 54 Respiratory Rate 16 12 Blood Pressure 126/76 117/65 Pulse Oximetry 98 97 Oxygen Delivery Method Room Air Room Air BMI result Body Mass Index 35.4 Labs 12/31/23 10:15 12/31/23 10:15 Labs: Laboratory Results - last 48 hr 01/04/24 08:15 POC Glucose 106 Medications Medications Current Medications Acetaminophen (Acetaminophen 325 Mg Tablet) 650 mg PO Q6H PRN PRN Reason: Headache/Pain Mild Scale (1-3) Last Admin: 01/04/24 09:06 Dose: 650 mg Al Hydroxide/Mg Hydroxide (Magnesium Hydrox/Alum Hydrox 30 Ml Oral.Susp) 30 ml PO Q6H PRN PRN Reason: Heartburn/Nausea Amlodipine Besylate (Amlodipine Besylate 5 Mg Tablet) 5 mg PO DAILY [facility]; Protocol Last Admin: 01/04/24 08:43 Dose: 5 mg Buprenorphine/Naloxone (Buprenorphine/Naloxone 8/2 Mg Film) 1 film SUBLINGUAL BID@0900,1700 [facility] Last Admin: 01/04/24 08:44 Dose: 1 film Bupropion HCl (Bupropion Hcl 100 Mg Tablet) 100 mg PO BID@0900,1600 [facility] Last Admin: 01/04/24 08:43 Dose: 100 mg Clonidine HCl (Clonidine Hcl 0.2 Mg Tablet) 0.2 mg PO BEDTIME [facility]; Protocol Clonidine HCl (Clonidine Hcl 0.1 Mg Tablet) 0.05 mg PO BID@0900,1500 [facility]; Protocol Cyanocobalamin (Cyanocobalamin (Vitamin B-12) 500 Mcg Tablet) 250 mcg PO DAILY [facility] Last Admin: 01/04/24 08:43 Dose: 250 mcg Fluoxetine HCl (Fluoxetine Hcl 20 Mg Capsule) 20 mg PO DAILY@0900 [facility] Last Admin: 01/04/24 08:43 Dose: 20 mg Gabapentin (Gabapentin 400 Mg Capsule) 400 mg PO TID [facility] Last Admin: 01/04/24 08:43 Dose: 400 mg Hydrochlorothiazide (Hydrochlorothiazide 12.5 Mg Tablet) 12.5 mg PO DAILY@0900 [facility]; Protocol Last Admin: 01/04/24 08:43 Dose: 12.5 mg Hydroxyzine HCl (Hydroxyzine Hcl 25 Mg Tablet) 25 mg PO Q6H PRN PRN Reason: Anxiety Last Admin: 01/03/24 21:33 Dose: 25 mg Magnesium Hydroxide (Milk Of Magnesia 30 Ml Oral.Susp) 30 ml PO DAILY PRN PRN Reason: Constipation Metformin HCl (Metformin Hcl 500 Mg Tablet) 500 mg PO BID [facility] Last Admin: 01/04/24 08:42 Dose: 500 mg Nicotine (Nicotine 7 Mg Patch.Td24) 7 mg TRANSDERMA Q24H [facility] Last Admin: 01/03/24 16:11 Dose: 7 mg Nicotine Polacrilex (Nicotine Polacrilex 2 Mg Gum) 4 mg BUCCAL Q2H PRN PRN Reason: nicotine cravings Last Admin: 01/03/24 22:01 Dose: 4 mg Trazodone HCl (Trazodone Hcl 50 Mg Tablet) 50 mg PO BEDTIME MRX1 PRN PRN Reason: Insomnia Allergies Allergies Allergy/AdvReac Type Severity Reaction Status Date / Time No Known Allergies Allergy Verified 01/01/24 11:47 Assessment & Plan Assessment & Plan (1) Opioid use disorder: Status: Acute Code(s): F11.90 - Opioid use, unspecified, uncomplicated (2) Cocaine use disorder: Status: Acute Code(s): F14.10 - Cocaine abuse, uncomplicated (3) PTSD (post-traumatic stress disorder): Status: Acute Code(s): F43.10 - Post-traumatic stress disorder, unspecified (4) MDD (major depressive disorder), recurrent episode, moderate: Status: Acute Code(s): F33.1 - Major depressive disorder, recurrent, moderate Plan 01/02: restart/continue previous outpt medications regimen aside from stimulant. pt has polysubstance use disorder, including of cocaine. stimulants are relatively contraindicated in this patient. willing to try clonidine scheduled during the day and increased dosing at for anxiety/insomnia. refer to [facility] for readmission. 01/03: some tiredness in morning and during day, will continue current regimen for now. awaiting word from [facility]. 01/04: sedated from clonidine 0.1/0.1/0.3. decrease clonidine to 0.05/0.05/0.2. stable otherwise. discharge tomorrow to [facility]. Reason for continued inpatient stay Substantial Risk for: inability to function Time Spent With Patient Time: Total time managing care of this patient today ____ minutes.
[2024-01-04] MEDS: cloNIDine HCL 0.1 MG TABLET 0.05 MG PO (16:19)
[2024-01-04] MEDS: Nicotine 7 MG PATCH.TD24 TRANSDERMA (16:21)
[2024-01-04 20:05] VITALS: BP 134/83; PULSE 75; RESP 16; TEMP 36.1; O2SAT 96
[2024-01-04] MEDS: cloNIDine HCL 0.2 MG TABLET PO (20:44)
[2024-01-05 07:15] VITALS: BP 124/57; PULSE 58; RESP 18; TEMP 36.7; O2SAT 96
[2024-01-05 08:02] LABS: Glucose, Whole Blood 159 mg/dL (60-115)
[2024-01-05] MEDS: amLODIPine Besylate 5 MG TABLET PO (08:59)
[2024-01-05] MEDS: Gabapentin 400 MG CAPSULE PO (08:59)
[2024-01-05] MEDS: metFORMIN HCl 500 MG TABLET PO (08:59)
[2024-01-05] MEDS: Cyanocobalamin (Vitamin B-12) 500 MCG TABLET 250 MCG PO (09:00)
[2024-01-05] MEDS: hydroCHLOROthiazide 12.5 MG TABLET PO (09:00)
[2024-01-05] MEDS: buPROPion HCL 100 MG TABLET PO (09:00)
[2024-01-05] MEDS: Buprenorphine/Naloxone 8/2 mg FILM 1 FILM SUBLINGUAL (09:00)
[2024-01-05] MEDS: FLUoxetine HCl 20 MG CAPSULE PO (09:00)
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
== END 2024-01-05 13:10 | DRG 751 ==
LOC: HO.ED 13:17 → HO.PADLT16 01-01 16:26
PROVIDERS: Registered Nurse Emergency; Admitting Provider Psychiatry & Neurology Psychiatry; Emergency Provider Emergency Medicine Emergency Medical Services; Visit Provider Psychiatry & Neurology Psychiatry
DX: F33.1 Major depressive disorder, recurrent, moderate (principal); R45.851 Suicidal ideations; E11.9 Type 2 diabetes mellitus without complications; F14.10 Cocaine abuse, uncomplicated; F43.10 Post-traumatic stress disorder, unspecified; F11.20 Opioid dependence, uncomplicated; F17.210 Nicotine dependence, cigarettes, uncomplicated; Z20.822 Contact with and (suspected) exposure to COVID-19; Z71.6 Tobacco abuse counseling; Z79.84 Long term (current) use of oral hypoglycemic drugs; Z79.899 Other long term (current) drug therapy
CPT/HCPCS: 80048; 80307; 81003; 82947; 85025; 87635; 93005; 99285; S9485

== ENCOUNTER → 2024-01-01 15:25 | Outpatient (BNV) | payer OTHER, SELFPAY | PROVIDERS: Admitting Provider Psychiatry & Neurology Psychiatry; Emergency Provider Emergency Medicine Emergency Medical Services; Visit Provider Psychiatry & Neurology Psychiatry | DX: F33.1 Major depressive disorder, recurrent, moderate (principal); F14.10 Cocaine abuse, uncomplicated; F11.90 Opioid use, unspecified, uncomplicated; F43.11 Post-traumatic stress disorder, acute | CPT/HCPCS: 90792; 99231; 99232; 99238 ==

== ENCOUNTER 2025-07-30 12:32 | Observation (INO) | payer MEDICAID, SELFPAY ==
[2025-07-30] VITALS (15 sets, daily range): BP systolic 135–175; BP diastolic 87–120; PULSE 61–84; RESP 14–17; TEMP 36.4–36.8; O2SAT 94–99; BMI 38.3
--- NOTE | ~2025-07-30 | XR_ITS ---
EXAMINATION: XR CHEST 1 VIEW HISTORY: Chest pain, diaphoresis, rule out CHF, pneumonia COMPARISON: There are no prior studies available for comparison. FINDINGS: A single AP portable view of the chest performed at 1:09 PM is submitted. The lungs are expanded and clear. There is no pleural effusion, pneumothorax, or pulmonary vascular congestion. The heart is normal in size. The bones are intact. XR/XR chest 1V IMPRESSION: Clear lungs. Electronically signed by: Elias Vaughan MD 07/30/2025 01:08 PM EDT
--- NOTE | 2025-07-30 12:51 | ED.CHESTPAIN ---
HPI - Chest Pain General Chief Complaint: Nausea/Vomiting/Diarrhea Stated Complaint: DIZZY,NAUSEA,R SHOULDER PAIN,BP 166/122 FROM [facility] Time Seen by Provider: 07/30/25 12:35 Source: patient Mode of arrival: ambulatory Limitations: no limitations History of Present Illness ED Provider: Dr. Wesley Mcdonald HPI narrative: 45-year-old male with a past medical history of with history of non-insulin dependent diabetes mellitus, hypertension, GERD, opioid use disorder, cocaine use disorder, PTSD, MDD who is a bed at [facility] for proximally 3 weeks for adjustment of his medications who presents emergency department for evaluation of sudden onset of chest pain, lightheadedness, dizziness, diaphoresis and nausea. Patient states that he was in a group therapy session on cognitive behavior modifications when he developed sudden onset of chest pain associated with lightheadedness, nausea and diaphoresis. He also states he had a tingling sensation in the right side of his face in his right arm. The pain was located in the center of his chest. He described it as a constant tight sensation which is 6/10 at its worst. The patient states that the pain lasted for proximally 20 minutes. Patient was treated by EMS with nitroglycerin x2 and aspirin orally. Patient states that by the time he arrived in the emergency department his chest pain resolved completely but he still has nausea. Patient states that he has high blood pressure but was not taking medications. Patient did have elevated blood pressures at [facility] and was treated with lisinopril 20 mg at 08:00 hours this morning. The patient's symptoms started at 11:00 hours. Patient states he last used cocaine 3 months prior and last used heroin 2 months prior. Patient is a former smoker, he states he has smoked for 2 years but stopped 2 years ago. The patient's family history is negative for early coronary artery disease in his mother, father and siblings. He states that his maternal grandfather had a heart attack at age 70. Patient states that he has not had any chest pain on exertion or dyspnea on exertion. Related Data Previous Rx's ?Medication ?Instructions ?Recorded amlodipine 5 mg tablet 5 mg PO DAILY blood pressure 30 01/05/24 days #30 tabs buprenorphine 8 mg-naloxone 2 mg 1 film sublingual BID 30 days #60 01/05/24 sublingual film (Suboxone) ea bupropion HCl 100 mg tablet,12 hr 100 mg PO BID 30 days #60 tabs 01/05/24 sustained-release clonidine HCl 0.1 mg tablet 0.05 mg PO DAILY@1600 30 days #15 01/05/24 tabs clonidine HCl 0.2 mg tablet 0.2 mg PO BEDTIME 30 days #30 tabs 01/05/24 cyanocobalamin (vitamin B-12) 1,000 mcg PO DAILY 30 days #30 tabs 01/05/24 1,000 mcg tablet fluoxetine 20 mg capsule 20 mg PO QAM 30 days #30 caps 01/05/24 gabapentin 400 mg capsule 400 mg PO TID 30 days #90 caps 01/05/24 hydrochlorothiazide 12.5 mg capsule 12.5 mg PO QAM 30 days #30 caps 01/05/24 metformin 500 mg tablet 500 mg PO DAILY 30 days #60 tabs 01/05/24 nicotine (polacrilex) 4 mg gum 4 mg buccal Q2H PRN nicotine 01/05/24 cravings 30 days #100 ea nicotine 7 mg/24 hr daily 1 patch transdermal Q24H 28 days 01/05/24 transdermal patch #28 ea Allergies Allergy/AdvReac Type Severity Reaction Status Date / Time No Known Allergies Allergy Verified 07/30/25 12:48 Review of Systems Review of Systems: Yes all other systems are reviewed and are negative [facility] Past Medical History [facility] Narrative: Social history: Patient has a former tobacco use your. He states that he stopped smoking 2 years prior and only smoked for about 2 years. Patient rarely drinks alcohol. He states that he used cocaine 3 months prior and heroin 1 month prior but he is not use since then. He states that he use these drugs intranasally and does not inject drugs. Medical History Opioid use disorder Cocaine use disorder PTSD (post-traumatic stress disorder) MDD (major depressive disorder), recurrent episode, moderate Cigarette smoker Polysubstance abuse Hypertension Chronic low back pain Asthma Non-insulin dependent type 2 diabetes mellitus Social History Social History Household Members: None Household Members Other:: Sober House Housing: Homeless Housing Other:: Sober House Do you presently have visiting nurse or other home services: No Alcohol intake: current Alcohol intake frequency: holidays/special occasions only Patient Tobacco Use Status: Tobacco use Unknown Tobacco use type: Cigarette Cigarette Packs Per Day: 0.5 Cigarettes Per Day: 10.0 Years Smoked: 20 Smoked in Last 30 Days: No Second Hand Smoke Exposure: No Use of substances other than those prescribed or required for medical reasons: Yes Substance Use Type: Crack/Cocaine and Heroin Advance Directives: No Advance Directives Information Provided: Yes Do you have a plan to hurt others: No Plan service: No Sexual orientation: Straight/Heterosexual Physical Exam Vital Signs: Vital Signs: Last Vital Signs Temp 98 F 07/30/25 16:56 Pulse 61 07/30/25 16:56 Resp 16 07/30/25 16:56 BP 174/95 H 07/30/25 16:56 Pulse Ox 94 07/30/25 16:56 O2 Del Method Room Air 07/30/25 16:56 BMI result Body Mass Index 38.3 Vital signs revealed an elevated blood pressure otherwise unremarkable Exam: General: Awake, alert in no distress Head: Normocephalic, atraumatic EENT: PERRL, Lids normal, sclera normal, conjunctiva normal, nose normal , ears normal, throat without erythema or exudates Neck: Supple, no adenopathy Lung: breath sounds symmetric, no wheezing, rales or rhonchi Chest: symmetric movement, nontender Heart: regular rate and rhythm, normal S1, S2 no murmurs or rubs Abdomen: soft, non-tender, nondistended, normal bowel sounds Back: no vertebral tenderness, no CVAT Extremities: no deformities, moves all extremities symmetrically Neuro: Awake, alert, oriented, normal speech, cranial nerves intact, moves all extremities symmetrically Psych: Pleasant, cooperative Medications Administered Discontinued Medications Generic Name Dose Route Start Last Admin Trade Name Freq PRN Reason Stop Dose Admin Sodium Chloride 1,000 mls @ 999 mls/hr 07/30/25 12:51 07/30/25 16:05 Ns IV 07/30/25 13:51 Infused .Q1H1M STA Infusion Ondansetron HCl 4 mg 07/30/25 12:58 07/30/25 13:19 Ondansetron Hcl 4 Mg/2 Ml Vial IVPUSH 07/30/25 12:59 4 mg ONCE ONE Administration Medical Decision Making Medical Decision Making MDM Narrative: 45-year-old male with a past medical history of with history of non-insulin dependent diabetes mellitus, hypertension, GERD, opioid use disorder, cocaine use disorder, PTSD, MDD who is a bed at [facility] for proximally 3 weeks for adjustment of his medications who presents emergency department for evaluation of sudden onset of chest pain, lightheadedness, dizziness, diaphoresis and nausea symptoms lasting proximally 20 minutes, resolved after treated with nitroglycerin sublingually x2 and aspirin by EMS. Patient had no chest pain of the time my evaluation and complained of nausea only. Vital signs initially revealed an elevated blood pressure of 145/101. Patient was not orthostatic by pulse or blood pressure but did feel lightheaded on standing. Exam was otherwise unremarkable. Differential diagnosis: ?Includes but is not limited to myocardial infarction, myocardial ischemia, orthostatic hypotension, hypotension, anxiety, hyperventilation syndrome, anemia, electrolyte abnormalities Course: 13:16 Orthostatic vital signs: Lying: BP 145/93, heart rate 75 Sitting: BP 146/88, heart rate 76 Standing: BP 138/87, heart rate 80-patient felt lightheaded My independent interpretation patient's laboratory evaluation: Glucose elevated 140. ALT elevated 55. Troponin below detectable limits. WBC normal 4900. Microcytic anemia with an H&H of 13.7 and 39.1 with an MCV of 79-this is new. Coags were normal. Urinalysis was negative. Urine tox screen was positive for buprenorphine-he is on Suboxone. Ethanol was below detectable limits. Chest x-ray revealed no acute disease. Twelve EKG was unremarkable. We will repeat patient's troponin at 15:30 hours. 16:19 Repeat troponin was below detectable limits. Patient continues to have elevated blood pressures with the highest being 163/112, he is asymptomatic and this is most likely consistent with untreated essential hypertension. Given his cardiac risk factors and presentation, I am concerned that he may have unstable angina therefore I did consult our on-call packaging materials inspector, Dr. Rodriguez. 16:40 Patient developed mild substernal sharp chest pain associated with nausea, shortness of breath and diaphoresis. Patient's blood pressure was 164/98, heart rate 70, O2 saturation 96% on room air. Twelve EKG was normal. I ordered an acid 125 cc an hour, sublingual nitro x1 and nitro paste 1 in to the chest wall. Given the recurrence of his chest pain in his elevated blood pressures, I believe the patient needs to be admitted for blood pressure management and further evaluation in his chest pain. Dr. Rodriguez's did recommend that the patient be admitted for blood pressure management as well. I will repeat a troponin now. 17:04 I did discuss the patient's presentation with the covering hospitalist, Dr. Wells and the patient will be admitted for further treated and diagnostic workup. Differential Diagnosis Differential Diagnoses: The differential diagnosis associated with the presentation includes (See above) Admission/Observation Consideration of admission/observation: Escalation of care including admission/observation considered (Yes) Lab Data MDM Lab Attestation statement: I reviewed the patient's lab results. 07/30/25 13:16 07/30/25 13:16 Labs: Lab Results 07/30/25 07/30/25 07/30/25 Range/Units 13:15 13:15 13:16 WBC 4.9 (4.8-10.8) X10*3/uL RBC 4.95 (4.60-5.80) X10*6/uL Hgb 13.7 L (14.0-18.0) g/dl Hct 39.1 L (42.0-52.0) % MCV 79.0 L (80.0-98.0) fL MCH 27.7 (27.0-33.0) pg MCHC 35.0 (31.0-36.0) g/dl RDW 12.9 (11.0-16.0) % Plt Count 209 (160-400) X10*3/uL MPV 10.8 (9.4-12.4) fL Immature Gran % (Auto) 0.8 H (0.0-0.4) % Neut % (Auto) 61.3 (45-73) % Lymph % (Auto) 26.4 (20-40) % [place] % (Auto) 7.3 (2-11) % Eos % (Auto) 3.4 (0-4) % Baso % (Auto) 0.8 (0-2) % Lymph # (Auto) 1.3 (1.2-4.9) X10*3/uL [place] # (Auto) 0.4 (0.1-1.2) X10*3/uL Eos # (Auto) 0.2 (0.0-0.4) X10*3/uL Baso # (Auto) 0.0 (0.0-0.2) X10*3/uL Abs Immat Gran (auto) 0.04 H (0.00-0.03) X10*3/uL Absolute Neuts (auto) 3.0 (2.0-8.3) x10*3/uL Absolute Nucleated RBC 0.000 (0.0-0.012) X10*3/uL Nucleated RBC % (auto) 0.0 (0.0-0.2) /100WBC PT 11.5 (10.9-12.4) SEC INR 1.0 (0.9-1.1) APTT 33.1 (26.7-34.1) SEC D-Dimer High Sensitivty 164 NG/ML Hold Blue Top SEE NOTE SEE NOTE Sodium 138 (135-145) mmol/L Potassium 4.6 D (3.3-5.1) mmol/L Chloride 104 (96-108) mmol/L Carbon Dioxide 28 (22-29) mmol/L Anion Gap 11 L (12-20) BUN 13 (9-16) mg/dL Creatinine 0.90 (0.5-1.4) mg/dL Estim Creat Clear Calc 116.4 Estimated GFR > 60 Random Glucose 140 H (60-115) mg/dL Calcium 8.6 (8.4-10.2) mg/dL Magnesium 1.9 (1.6-2.6) mg/dL Total Bilirubin 0.3 (0.0-1.0) mg/dL AST 36 (5-37) U/L ALT 55 H (0-40) U/L Alkaline Phosphatase 107 (39-117) U/L Troponin I High Sens < 2.7 (<3.5-35.0) ng/L B-Natriuretic Peptide 78 (<100) pg/mL Total Protein 7.0 (6.5-8.0) g/dL Albumin 4.1 (3.5-5.0) g/dL Lipase 10 (8-78) U/L Urine Color Yellow Urine Appearance Clear Urine pH 7.5 (5.0-9.0) Ur Specific [place] 1.020 (1.005-1.025) Urine Protein Negative (Neg-Trace) mg/dL Urine Glucose (UA) Negative (Negative) mg/dL Urine Ketones Negative (Negative) mg/dL Urine Blood Negative (Negative) Urine Nitrite Negative (Negative) Ur Leukocyte Esterase Negative (Negative) Urine Opiates Screen Not Detected (Not Detect) Ur Buprenorphine Scrn Positive H (Not Detect) ng/mL Ur Oxycodone Screen Not Detected (Not Detect) ng/mL Urine Methadone Screen Not Detected (Not Detect) ng/mL Urine Fentanyl Screen Not Detected (Not Detect) Ur Barbiturates Screen Not Detected (Not Detect) Ur Phencyclidine Scrn Not Detected (Not Detect) Ur Amphetamines Screen Not Detected (Not Detect) U Benzodiazepines Scrn Not Detected (Not Detect) Urine Cocaine Screen Not Detected (Not Detect) U Marijuana (THC) Screen Not Detected (Not Detect) Ethyl Alcohol < 10 mg/dL 07/30/25 Range/Units 15:26 WBC (4.8-10.8) X10*3/uL RBC (4.60-5.80) X10*6/uL Hgb (14.0-18.0) g/dl Hct (42.0-52.0) % MCV (80.0-98.0) fL MCH (27.0-33.0) pg MCHC (31.0-36.0) g/dl RDW (11.0-16.0) % Plt Count (160-400) X10*3/uL MPV (9.4-12.4) fL Immature Gran % (Auto) (0.0-0.4) % Neut % (Auto) (45-73) % Lymph % (Auto) (20-40) % [place] % (Auto) (2-11) % Eos % (Auto) (0-4) % Baso % (Auto) (0-2) % Lymph # (Auto) (1.2-4.9) X10*3/uL [place] # (Auto) (0.1-1.2) X10*3/uL Eos # (Auto) (0.0-0.4) X10*3/uL Baso # (Auto) (0.0-0.2) X10*3/uL Abs Immat Gran (auto) (0.00-0.03) X10*3/uL Absolute Neuts (auto) (2.0-8.3) x10*3/uL Absolute Nucleated RBC (0.0-0.012) X10*3/uL Nucleated RBC % (auto) (0.0-0.2) /100WBC PT (10.9-12.4) SEC INR (0.9-1.1) APTT (26.7-34.1) SEC D-Dimer High Sensitivty NG/ML Hold Blue Top Sodium (135-145) mmol/L Potassium (3.3-5.1) mmol/L Chloride (96-108) mmol/L Carbon Dioxide (22-29) mmol/L Anion Gap (12-20) BUN (9-16) mg/dL Creatinine (0.5-1.4) mg/dL Estim Creat Clear Calc Estimated GFR Random Glucose (60-115) mg/dL Calcium (8.4-10.2) mg/dL Magnesium (1.6-2.6) mg/dL Total Bilirubin (0.0-1.0) mg/dL AST (5-37) U/L ALT (0-40) U/L Alkaline Phosphatase (39-117) U/L Troponin I High Sens < 2.7 (<3.5-35.0) ng/L B-Natriuretic Peptide (<100) pg/mL Total Protein (6.5-8.0) g/dL Albumin (3.5-5.0) g/dL Lipase (8-78) U/L Urine Color Urine Appearance Urine pH (5.0-9.0) Ur Specific [place] (1.005-1.025) Urine Protein (Neg-Trace) mg/dL Urine Glucose (UA) (Negative) mg/dL Urine Ketones (Negative) mg/dL Urine Blood (Negative) Urine Nitrite (Negative) Ur Leukocyte Esterase (Negative) Urine Opiates Screen (Not Detect) Ur Buprenorphine Scrn (Not Detect) ng/mL Ur Oxycodone Screen (Not Detect) ng/mL Urine Methadone Screen (Not Detect) ng/mL Urine Fentanyl Screen (Not Detect) Ur Barbiturates Screen (Not Detect) Ur Phencyclidine Scrn (Not Detect) Ur Amphetamines Screen (Not Detect) U Benzodiazepines Scrn (Not Detect) Urine Cocaine Screen (Not Detect) U Marijuana (THC) Screen (Not Detect) Ethyl Alcohol mg/dL Independent Interpretation I performed an independent interpretation of an: EKG Interpretation: My independent interpretation patient's 12 EKG done on 07/30/2025 at 13:20 hours is as follows: Normal sinus rhythm rate of 65, normal WA interval, QRS duration and QTC interval, no ST segment elevation, no ST segment depression, flattened T-wave in 3, inverted T-wave in V1, no PACs, no PVCs-this is a normal EKG. When compared to an EKG dated 01/01/2024 at 12:58 hours there was no significant change. My independent interpretation of the patient's chest x-ray is as follows: No acute disease My independent interpretation patient's 12 EKG done on 07/30/2025 at 17:04 hours is as follows: Normal sinus rhythm rate of 78, normal WA interval, QRS duration QTC interval, no ST segment elevation, no ST segment depression, no PACs, no PVCs, no significant T-waves. This is a normal EKG. Radiology Impression Radiologist Impression: XR chest 1V IMPRESSION: Clear lungs. Electronically signed by: Elias Vaughan MD 07/30/2025 01:08 PM EDT External Record Review External record reviewed: Inpatient record and Outpatient record Chronic Conditions Patient?s care impacted by: Diabetes and Hypertension Critical Care Time Critical Care Time Critical Care Time: Yes Total Critical Care Time: 45 Attestation: Critical Care: The patient was critically ill with a high probability of imminent or life threatening deterioration. I spent greater than 30 minutes of discontinuous time evaluating the patient,delivering critical care at the bedside, discussing and evaluating pertinent data with consultants. Critical care time does not include time spent performing separately billable procedures or teaching. Total time spent performing critical care was 45 minutes. Discharge Plan Discharge Patient Disposition: Admitted As Inpatient Print Language: Greenlandic
--- NOTE | 2025-07-30 12:52 | ECG_ITS ---
Test Reason : CHEST PAIN Blood Pressure : */* mmHG Vent. Rate : 65 BPM Atrial Rate : 65 BPM P-R Int : 154 ms QRS Dur : 90 ms QT Int : 372 ms P-R-T Axes : 19 10 25 degrees QTcB Int : 386 ms Normal sinus rhythm Normal ECG When compared with ECG of 01-Jan-2024 12:58, No significant change was found Referred By: Wesley Mcdonald Electronically Signed By: RACHEL THOMPSON MD
[2025-07-30 13:21] LABS: MANUAL DIFF FLAG NO
[2025-07-30 13:25] LABS: Appearance Urine Clear; Glucose Urine UA Negative (Negative); Hematocrit 39.1 % (42.0-52.0); Hemoglobin 13.7 g/dl (14.0-18.0); Imm Gran Abs Auto 0.04 X10*3/uL (0.00-0.03); Imm Gran Pct Auto 0.8 % (0.0-0.4); Lymphocytes Absolute Auto 1.3 X10*3/uL (1.2-4.9); Mean Corpuscular HGB Conc 35.0 g/dl (31.0-36.0); Mean Corpuscular Hemoglobin 27.7 pg (27.0-33.0); Mean Corpuscular Volume 79.0 fL (80.0-98.0); NRBC Abs Auto 0.000 X10*3/uL (0.0-0.012); NRBC Pct Auto 0.0 /100WBC (0.0-0.2); PH 7.5 (5.0-9.0); Platelet Count 209 X10*3/uL (160-400); Red Blood Count 4.95 X10*6/uL (4.60-5.80); Specific Gravity - Urine 1.020 (1.005-1.025); White Blood Count 4.9 X10*3/uL (4.8-10.8)
[2025-07-30 13:35] LABS: Cannabinoid Screen Urine Not Detected (Not Detect)
[2025-07-30 13:42] LABS: INTERNATIONAL NORM RATIO 1.0 (0.9-1.1); Prothrombin Time 11.5 SEC (10.9-12.4)
[2025-07-30 13:42] LABS: Alanine Aminotransferase 55 U/L (0-40); Albumin Level 4.1 g/dL (3.5-5.0); Alkaline Phosphatase 107 U/L (39-117); Anion Gap 11 (12-20); Aspartate Amino Transferase 36 U/L (5-37); B Type Natriuretic Peptide 78 pg/mL (<100); Blood Urea Nitrogen 13 mg/dL (9-16); Calcium 8.6 mg/dL (8.4-10.2); Carbon Dioxide 28 mmol/L (22-29); Chloride 104 mmol/L (96-108); Creatinine Clr Calc Pharmacy 116.4; Estimated Glomerular Filt Rate > 60; Lipase 10 U/L (8-78); Magnesium 1.9 mg/dL (1.6-2.6); Potassium 4.6 mmol/L (3.3-5.1); Sodium 138 mmol/L (135-145); Total Protein 7.0 g/dL (6.5-8.0)
[2025-07-30 13:44] LABS: D Dimer High Sensitivity 164 NG/ML
[2025-07-30 13:45] LABS: Partial Thromboplastin Time 33.1 SEC (26.7-34.1)
[2025-07-30 13:45] LABS: Troponin-I High Sensitivity < 2.7 ng/L (<3.5-35.0)
[2025-07-30 15:51] LABS: Troponin-I High Sensitivity < 2.7 ng/L (<3.5-35.0)
--- OUTSIDE RECORDS SUMMARY | 2025-07-30 16:08 | XMS_ITS | Encounter Summary ---
Author Organization [facility] [address] [place] [address] Care Team Providers Care Tar Chaser Name Role Phone Dania Goel NEWSPAPER COLUMNIST Primary Care Provider [phone] Encounter Details Date Type Department Care Team (Latest Contact Info) Description 07/18/2024 Lab Requisition [facility] [address] [place] [phone] Anjali Manning NP [address] [place] [phone] Bipolar disorder, unspecified (HCC); Cocaine abuse, uncomplicated (HCC); Opioid dependence, uncomplicated (HCC); Post-traumatic stress disorder, chronic Social History Tobacco Use Types Packs/Day Years Used Date Smoking Tobacco: Never Assessed Sex and Gender Information Value Date Recorded Sex Assigned at Not on file Legal Sex Male 9:58 AM EDT Gender Identity Not on file Sexual Orientation Not on file documented as of this encounter Plan of Treatment Not on file documented as of this encounter Procedures Procedure Name Priority Date/Time Associated Diagnosis Comments LIPID PROFILE, REFLEX DIRECT LDL Routine 07/18/2024 6:30 AM EDT CBC AND AUTO DIFFERENTIAL Routine 07/18/2024 6:30 AM EDT TSH WITH REFLEX TO FREE T4 Routine 07/18/2024 6:30 AM EDT HEMOGLOBIN A1C Routine 07/18/2024 6:30 AM EDT COMPREHENSIVE METABOLIC PANEL Routine 07/18/2024 6:30 AM EDT Bipolar disorder, unspecified (HCC) Cocaine abuse, uncomplicated (HCC) Opioid dependence, uncomplicated (HCC) Post-traumatic stress disorder, chronic documented in this encounter Results * (ABNORMAL) CBC and Auto Differential (07/18/2024 6:30 AM EDT) WBC 4.4(L) 4.8 - 11.2 10*3/ L 07/18/2024 10:33 AM EDT [facility] RBC 4.64 4.00 - 5.90 10*6/ L 07/18/2024 10:33 AM EDT [facility] HGB 13.1(L) 14.0 - 17.2 g/dL 07/18/2024 10:33 AM EDT [facility] HCT 39.5(L) 40.0 - 52.0 % 07/18/2024 10:33 AM EDT [facility] MCV 85.1 82.0 - 98.0 fL 07/18/2024 10:33 AM EDT [facility] MCH 28.3 27.0 - 35.0 pg 07/18/2024 10:33 AM EDT [facility] MCHC 33.3 32.0 - 37.0 g/dL 07/18/2024 10:33 AM EDT [facility] RDW 14.8 12.0 - 15.0 % 07/18/2024 10:33 AM EDT [facility] PLT 178 150 - 400 10*3/ L 07/18/2024 10:33 AM EDT [facility] MPV 9.4 7.0 - 14.0 fL 07/18/2024 10:33 AM EDT [facility] Neut % 55.0 45.0 - 85.0 % 07/18/2024 10:33 AM EDT [facility] Lymph % 35.0 15.0 - 45.0 % 07/18/2024 10:33 AM EDT [facility] [place] % 7.8 0.0 - 12.0 % 07/18/2024 10:33 AM EDT [facility] Eos % 1.9 0.0 - 7.0 % 07/18/2024 10:33 AM EDT [facility] Baso % 0.3 0.0 - 3.0 % 07/18/2024 10:33 AM EDT [facility] NRBC% 0 0 /100 WBC /100 WBC 07/18/2024 10:33 AM EDT [facility] Neut # 2.4 2.2 - 9.5 10*3/ L 07/18/2024 10:33 AM EDT [facility] Lym # 1.5 0.7 - 5.0 10*3/ L 07/18/2024 10:33 AM EDT [facility] [place] # 0.3 0.0 - 1.3 10*3/ L 07/18/2024 10:33 AM EDT [facility] Eos # 0.1 0.0 - 0.4 10*3/ L 07/18/2024 10:33 AM EDT [facility] Baso # 0.0 0.0 - 0.3 10*3/ L 07/18/2024 10:33 AM EDT [facility] Blood Venipuncture / Unknown 07/18/2024 6:30 AM EDT 07/18/2024 10:04 AM EDT Anjali Manning NP LAB BLOOD ORDERABLES Final Result [facility] [address] [place] [phone] * TSH with reflex to Free T4 (07/18/2024 6:30 AM EDT) TSH 1.366 0.340 - 4.820 uIU/mL 07/18/2024 11:19 AM EDT [facility] Blood Venipuncture / Unknown 07/18/2024 6:30 AM EDT 07/18/2024 10:04 AM EDT Anjali Manning NEWSPAPER COLUMNIST LAB BLOOD ORDERABLES Final Result [facility] [address] [place] [address] * Hemoglobin A1c (07/18/2024 6:30 AM EDT) Hemoglobin A1C 5.6 4.0 - 6.0 % 07/18/2024 11:30 AM EDT [facility] Estimated Average Glucose eAG 114.0 85.0 - 126.0 mg/dL 07/18/2024 11:30 AM EDT [facility] Blood Venipuncture / Unknown 07/18/2024 6:30 AM EDT 07/18/2024 10:04 AM EDT Anjali Manning NP LAB BLOOD ORDERABLES Final Result Performing Organization Address [facility] de Phone Number [facility] [address] [place] [phone] * (ABNORMAL) Lipid profile, reflex direct LDL (07/18/2024 6:30 AM EDT) Cholesterol 117 <200 mg/dL 07/18/2024 11:19 AM EDT [facility] Triglycerides 153(H) <150 mg/dL 07/18/2024 11:19 AM EDT [facility] HDL 28.6(L) >=60.0 mg/dL 07/18/2024 11:19 AM EDT [facility] LDL Calculated 58 0 - 100 mg/dL 07/18/2024 11:19 AM EDT [facility] Cardiac Risk Factor 4.1 0.0 - 5.0 07/18/2024 11:19 AM EDT [facility] Blood Venipuncture / Unknown 07/18/2024 6:30 AM EDT 07/18/2024 10:04 AM EDT Narrative [facility] - 07/18/2024 11:19 AM EDT Cardiac Risk Factor: Males Females 2x Average Risk 9.6 7.1 3x Average Risk 23.4 11.0 Anjali Manning NP LAB BLOOD ORDERABLES Final Result [facility] [address] [place] [address] * (ABNORMAL) Comprehensive metabolic panel (07/18/2024 6:30 AM EDT) Sodium 142 136 - 145 mEq/L 07/18/2024 11:20 AM EDT [facility] Potassium 4.0 3.5 - 5.1 mEq/L 07/18/2024 11:20 AM EDT [facility] Chloride 106 98 - 107 mEq/L 07/18/2024 11:20 AM EDT [facility] CO2 30 20 - 31 mEq/L 07/18/2024 11:20 AM EDT [facility] Anion Gap 6 4 - 15 mEq/L 07/18/2024 11:20 AM EDT [facility] Glucose 91 70 - 100 mg/dL 07/18/2024 11:20 AM EDT [facility] Creatinine 0.88 0.60 - 1.10 mg/dL 07/18/2024 11:20 AM EDT [facility] eGFR (Male) >60 60 - 115 mL/min 07/18/2024 11:20 AM EDT [facility] BUN 15 9 - 23 mg/dL 07/18/2024 11:20 AM EDT [facility] Calcium 9.1 8.7 - 10.4 mg/dL 07/18/2024 11:20 AM EDT [facility] Total Protein 6.1 5.7 - 8.2 g/dL 07/18/2024 11:20 AM EDT [facility] Albumin 3.7 3.2 - 4.8 g/dL 07/18/2024 11:20 AM EDT [facility] A/G Ratio 1.5 1.0 - 2.3 07/18/2024 11:20 AM EDT [facility] Total Bilirubin 0.2 0.2 - 1.0 mg/dL 07/18/2024 11:20 AM EDT [facility] AST <8(L) 13 - 40 U/L 07/18/2024 11:20 AM EDT [facility] Alkaline Phosphatase 80 46 - 116 IU/L 07/18/2024 11:20 AM EDT [facility] ALT 13 7 - 40 U/L 07/18/2024 11:20 AM EDT [facility] Blood Venipuncture / Unknown 07/18/2024 6:30 AM EDT 07/18/2024 10:04 AM EDT us Anjali Manning NP LAB BLOOD ORDERABLES Final Result [facility] [address] [place] [address] documented in this encounter Visit Diagnoses Diagnosis Bipolar disorder, unspecified (HCC) Bipolar disorder, unspecified Cocaine abuse, uncomplicated (HCC) Opioid dependence, uncomplicated (HCC) Post-traumatic stress disorder, chronic documented in this encounter Care Teams Tar Chaser Relationship Specialty Start Date End Date Dania Goel NP [address] [place] [phone] PCP - General Addiction Medicine 10/12/24 documented as of this encounter
--- OUTSIDE RECORDS SUMMARY | 2025-07-30 16:09 | XMS_ITS | Encounter Summary ---
Author Organization [facility] Address [address] [place] [address] Care Team Providers Care Document Improvement Specialist Name Role Phone Dania Goel NP Primary Care Provider [phone] Encounter Details Date Type Department Care Team (Late st Contact Info) Description 10/23/2024 [facility] [address] [place] [phone] Social History Tobacco Use Types Packs/Day Years Used Date Smoking Tobacco: Never Assessed Sex and Gender Information Value Date Recorded Sex Assigned at Not on file Legal Sex Male 9:58 AM EDT Gender Identity Not on file Sexual Orientation Not on file documented as of this encounter Plan of Treatment Not on file documented as of this encounter Visit Diagnoses Not on filedocumented in this encounter Care Teams Document Improvement Specialist Relationship Specialty Start Date End Date Dania Goel NP [address] [place] [address] PCP - General Addiction Medicine 10/12/24 documented as of this encounter
--- OUTSIDE RECORDS SUMMARY | 2025-07-30 16:09 | XMS_ITS | Encounter Summary ---
Author Organization [address] [address] Care Team Providers Care Crushing Mill Operator Name Role Phone Dania Goel ISAAC Primary Care Provider [phone] Encounter Details Date Type Department Care Team (Latest Contact Info) Description 10/15/2024 Lab Requisition [address] [address] Giuseppe Pandya MD [address] [place] [phone] Cocaine dependence, uncomplicated (HCC); Major depressive disorder, recurrent severe without psychotic features (HCC); Opioid dependence, uncomplicated (HCC); Post-traumatic stress [...] Comments LIPID PROFILE, REFLEX DIRECT LDL Routine 10/15/2024 6:28 AM EST CBC AND AUTO DIFFERENTIAL Routine 10/15/2024 6:28 AM EST TSH WITH REFLEX TO FREE T4 Routine 10/15/2024 6:28 AM EST HEMOGLOBIN A1C Routine 10/15/2024 6:28 AM EST COMPREHENSIVE METABOLIC PANEL Routine 10/15/2024 6:28 AM EST Cocaine dependence, uncomplicated (HCC) Major depressive disorder, recurrent severe without psychotic features (HCC) Opioid dependence, uncomplicated (HCC) Post-traumatic stress disorder, chronic documented in this encounter Results * (ABNORMAL) CBC and Auto Differential (10/15/2024 6:28 AM EST) WBC 4.4(L) 4.8 - 11.2 10*3/ L 10/15/2024 11:10 AM EST [facility] RBC 5.19 4.00 - 5.90 10*6/ L 10/15/2024 11:10 AM [facility] HGB 14.5 14.0 - 17.2 g/dL 10/15/2024 11:10 AM [facility] HCT 43.9 40.0 - 52.0 % 10/15/2024 11:10 AM [facility] MCV 84.6 82.0 - 98.0 fL 10/15/2024 11:10 AM [facility] MCH 27.9 27.0 - 35.0 pg 10/15/2024 11:10 AM [facility] MCHC 33.0 32.0 - 37.0 g/dL 10/15/2024 11:10 AM [facility] RDW 14.7 12.0 - 15.0 % 10/15/2024 11:10 AM [facility] PLT 156 150 - 400 10*3/ L 10/15/2024 11:10 AM [facility] MPV 9.3 7.0 - 14.0 fL 10/15/2024 11:10 AM [facility] Neut % 53.5 45.0 - 85.0 % 10/15/2024 11:10 AM EST [facility] Lymph % 36.0 15.0 - 45.0 % 10/15/2024 11:10 AM [facility] [place] % 8.3 0.0 - 12.0 % 10/15/2024 11:10 AM [facility] Eos % 1.8 0.0 - 7.0 % 10/15/2024 11:10 AM EST [facility] Baso % 0.4 0.0 - 3.0 % 10/15/2024 11:10 AM EST [facility] NRBC% 0 0 /100 WBC /100 WBC 10/15/2024 11:10 AM EST [facility] Neut # 2.4 2.2 - 9.5 10*3/ L 10/15/2024 11:10 AM EST [facility] Lym # 1.6 0.7 - 5.0 10*3/ L 10/15/2024 11:10 AM EST [facility] [place] # 0.4 0.0 - 1.3 10*3/ L 10/15/2024 11:10 AM EST [facility] Eos # 0.1 0.0 - 0.4 10*3/ L 10/15/2024 11:10 AM EST [facility] Baso # 0.0 0.0 - 0.3 10*3/ L 10/15/2024 11:10 AM EST [facility] Blood Venipuncture / Unknown 10/15/2024 6:28 AM EST 10/15/2024 10:47 AM EST Giuseppe Pandya MD LAB BLOOD ORDERABLES Final Result [facility] [address] [place] [phone] * TSH with reflex to Free T4 (10/15/2024 6:28 AM EST) TSH 3.084 0.340 - 4.820 uIU/mL 10/15/2024 12:44 PM EST [facility] Blood Venipuncture / Unknown 10/15/2024 6:28 AM EST 10/15/2024 10:47 AM EST Giuseppe Pandya MD LAB BLOOD ORDERABLES Final Result Performing Organization Address City/[facility]/ZIP Co de Phone Number [facility] [address] [place] [phone] * Hemoglobin A1c (10/15/2024 6:28 AM EST) Hemoglobin A1C 5.7 4.0 - 6.0 % 10/15/2024 11:39 AM EST [facility] Estimated Average Glucose eAG 116.9 85.0 - 126.0 mg/dL 10/15/2024 11:39 AM EST [facility] Blood Venipuncture / Unknown 10/15/2024 6:28 AM EST 10/15/2024 10:47 AM EST Giuseppe Pandya MD LAB BLOOD ORDERABLES Final Result Performing Organization Address [facility] Co de Phone Number [facility] [address] [place] [phone] * (ABNORMAL) Lipid profile, reflex direct LDL (10/15/2024 6:28 AM EST) Cholesterol 161 <200 mg/dL 10/15/2024 12:44 PM EST [facility] Triglycerides 288(H) <150 mg/dL 10/15/2024 12:44 PM EST [facility] HDL 36.3(L) >=60.0 mg/dL 10/15/2024 12:44 PM EST [facility] LDL Calculated 67 0 - 100 mg/dL 10/15/2024 12:44 PM EST [facility] Cardiac Risk Factor 4.4 0.0 - 5.0 10/15/2024 12:44 PM EST [facility] Blood Venipuncture / Unknown 10/15/2024 6:28 AM EST 10/15/2024 10:47 AM EST Narrative [facility] - 10/15/2024 12:44 PM EST Cardiac Risk Factor: Males Females 2x Average Risk 9.6 7.1 3x Average Risk 23.4 11.0 us Giuseppe Pandya MD LAB BLOOD ORDERABLES Final Result Performing Organization Address City/[facility]/ZIP Co de Phone Number [facility] [address] [place] [address] * (ABNORMAL) Comprehensive metabolic panel (10/15/2024 6:28 AM EST) Sodium 139 136 - 145 mEq/L 10/15/2024 12:49 PM [facility] Potassium 4.0 3.5 - 5.1 mEq/L 10/15/2024 12:49 PM [facility] Chloride 103 98 - 109 mEq/L 10/15/2024 12:49 PM [facility] CO2 32(H) 20 - 31 mEq/L 10/15/2024 12:49 PM [facility] Anion Gap 4 4 - 15 mEq/L 10/15/2024 12:49 PM [facility] Glucose 77 70 - 100 mg/dL 10/15/2024 12:49 PM [facility] Creatinine 1.00 0.60 - 1.10 mg/dL 10/15/2024 12:49 PM [facility] eGFR (Male) >60 60 - 115 mL/min 10/15/2024 12:49 PM [facility] BUN 14 9 - 23 mg/dL 10/15/2024 12:49 PM [facility] Calcium 9.3 8.3 - 10.6 mg/dL 10/15/2024 12:49 PM [facility] Comment:Reference Range has changed for Calcium beginning 10/15/24 Total Protein 7.3 5.7 - 8.2 g/dL 10/15/2024 12:49 PM [facility] Albumin 4.4 3.2 - 4.8 g/dL 10/15/2024 12:49 PM [facility] A/G Ratio 1.5 1.0 - 2.3 10/15/2024 12:49 PM [facility] Total Bilirubin 0.3 0.2 - 1.0 mg/dL 10/15/2024 12:49 PM [facility] AST 10(L) 13 - 40 U/L 10/15/2024 12:49 PM [facility] Alkaline Phosphatase 92 46 - 116 IU/L 10/15/2024 12:49 PM [facility] ALT 16 7 - 40 U/L 10/15/2024 12:49 PM EST [facility] Blood Venipuncture / Unknown 10/15/2024 6:28 AM EST 10/15/2024 10:47 AM EST us Giuseppe Pandya MD LAB BLOOD ORDERABLES Final Result [facility] [address] [place] [address] documented in this encounter Visit Diagnoses Diagnosis Cocaine dependence, uncomplicated (HCC) Major depressive disorder, recurrent severe without psychotic features (HCC) Opioid dependence, uncomplicated (HCC) Post-traumatic stress disorder, chronic documented in this encounter Care Teams Crushing Mill Operator Relationship Specialty Start Date End Date Dania Goel NP [address] [place] [phone] PCP - General Addiction Medicine 10/12/24 documented as of this encounter
--- OUTSIDE RECORDS SUMMARY | 2025-07-30 16:09 | XMS_ITS | Encounter Summary ---
Author Organization [facility] Address [address] [place] [address] Care Team Providers Care Title Examiner Name Role Phone Dania Goel NP Primary Care Provider [phone] Encounter Details Date Type Department Care Team (Late st Contact Info) Description 10/22/2024 Pharmacy Visit [facility] [address] [place] [phone] Social History Tobacco Use Types Packs/Day Years [...] on filedocumented in this encounter Care Teams Title Examiner Relationship Specialty Start Date End Date Dania Goel NP [address] [place] [phone] PCP - General Addiction Medicine 10/12/24 documented as of this encounter
--- OUTSIDE RECORDS SUMMARY | 2025-07-30 16:09 | XMS_ITS | Encounter Summary ---
Author Organization [facility] Address [address] [place] [address] Care Team Providers Care Service Greeter Name Role Phone Physician, Pcp Unknown Primary Care Provider Francesca vailable Encounter Details Date Type Department Care Team (Late st Contact Info) Description 03/20/2025 Lab Requisition [facility] - Main Lab [address] [facility] [place] [address] Prasanth Mcgill, ISAAC [address] [place] [address] Type 2 diabetes mellitus with hyperglycemia (CMS/HCC V24, CMS/HCC V28); Encounter for screening for infectious and parasitic diseases, unspecified; Encounter for screening for infections with a predominantly sexual mode of transmission; Encounter for screening for cardiovascular disorders; Encounter for screening for other suspected endocrine disorder Social History Tobacco Use Types Packs/Day Years Used Date Smoking Tobacco: Never Assessed Sex and Gender Information Value Date Recorded Sex Assigned at Not on file Legal Sex Male 4:34 PM EDT Gender Identity Not on file Sexual Orientation Not on file documented as of this encounter Plan of Treatment Not on file documented as of this encounter Procedures Procedure Name Priority Date/Time Associated Diagnosis Comments HEPATITIS C ANTIBODY Routine 03/20/2025 2:48 PM EDT Type 2 diabetes mellitus with hyperglycemia (CMS/HCC V24, CMS/HCC V28) Encounter for screening for infectious and parasitic diseases, unspecified Encounter for screening for infections with a predominantly sexual mode of transmission Encounter for screening for cardiovascular disorders Encounter for screening for other suspected endocrine disorder HIV 1, 2 ANTIBODY, P24 ANTIGEN WITH REFLEX TO DIFFERENTIATION Routine 03/20/2025 2:48 PM EDT Type 2 diabetes mellitus with hyperglycemia (CMS/HCC V24, CMS/HCC V28) Encounter for screening for infectious and parasitic diseases, unspecified Encounter for screening for infections with a predominantly sexual mode of transmission Encounter for screening for cardiovascular disorders Encounter for screening for other suspected endocrine disorder HEPATITIS B SURFACE ANTIGEN WITH CONFIRMATION Routine 03/20/2025 2:48 PM EDT Type 2 diabetes mellitus with hyperglycemia (CMS/HCC V24, CMS/HCC V28) Encounter for screening for infectious and parasitic diseases, unspecified Encounter for screening for infections with a predominantly sexual mode of transmission Encounter for screening for cardiovascular disorders Encounter for screening for other suspected endocrine disorder TREPONEMA PALLIDUM ANTIBODY WITH REFLEX TO RPR AND PARTICLE AGGLUTINATION Routine 03/20/2025 2:48 PM EDT Type 2 diabetes mellitus with hyperglycemia (CMS/HCC V24, CMS/HCC V28) Encounter for screening for infectious and parasitic diseases, unspecified Encounter for screening for infections with a predominantly sexual mode of transmission Encounter for screening for cardiovascular disorders Encounter for screening for other suspected endocrine disorder THYROID STIMULATING HORMONE WITH REFLEX TO FREE T4 AND FREE T3 Routine 03/20/2025 2:48 PM EDT Type 2 diabetes mellitus with hyperglycemia (CMS/HCC V24, CMS/HCC V28) Encounter for screening for infectious and parasitic diseases, unspecified Encounter for screening for infections with a predominantly sexual mode of transmission Encounter for screening for cardiovascular disorders Encounter for screening for other suspected endocrine disorder SST - GOLD Routine 03/20/2025 2:48 PM EDT Type 2 diabetes mellitus with hyperglycemia (CMS/HCC V24, CMS/HCC V28) Encounter for screening for infectious and parasitic diseases, unspecified Encounter for screening for infections with a predominantly sexual mode of transmission Encounter for screening for cardiovascular disorders Encounter for screening for other suspected endocrine disorder LIPID PANEL WITH REFLEX TO DIRECT LDL Routine 03/20/2025 2:48 PM EDT Type 2 diabetes mellitus with hyperglycemia (CMS/HCC V24, CMS/HCC V28) Encounter for screening for infectious and parasitic diseases, unspecified Encounter for screening for infections with a predominantly sexual mode of transmission Encounter for screening for cardiovascular disorders Encounter for screening for other suspected endocrine disorder MICROALBUMIN CREATININE URINE RATIO Routine 03/20/2025 2:48 PM EDT Type 2 diabetes mellitus with hyperglycemia (CMS/HCC V24, CMS/HCC V28) Encounter for screening for infectious and parasitic diseases, unspecified Encounter for screening for infections with a predominantly sexual mode of transmission Encounter for screening for cardiovascular disorders Encounter for screening for other suspected endocrine disorder HEPATITIS B CORE ANTIBODY, TOTAL Routine 03/20/2025 2:48 PM EDT Type 2 diabetes mellitus with hyperglycemia (CMS/HCC V24, CMS/HCC V28) Encounter for screening for infectious and parasitic diseases, unspecified Encounter for screening for infections with a predominantly sexual mode of transmission Encounter for screening for cardiovascular disorders Encounter for screening for other suspected endocrine disorder HEPATITIS B SURFACE ANTIBODY Routine 03/20/2025 2:48 PM EDT Type 2 diabetes mellitus with hyperglycemia (CMS/HCC V24, CMS/HCC V28) Encounter for screening for infectious and parasitic diseases, unspecified Encounter for screening for infections with a predominantly sexual mode of transmission Encounter for screening for cardiovascular disorders Encounter for screening for other suspected endocrine disorder COMPLETE BLOOD COUNT Routine 03/20/2025 2:48 PM EDT Type 2 diabetes mellitus with hyperglycemia (CMS/HCC V24, CMS/HCC V28) Encounter for screening for infectious and parasitic diseases, unspecified Encounter for screening for infections with a predominantly sexual mode of transmission Encounter for screening for cardiovascular disorders Encounter for screening for other suspected endocrine disorder HEMOGLOBIN A1C Routine 03/20/2025 2:48 PM EDT Type 2 diabetes mellitus with hyperglycemia (CMS/HCC V24, CMS/HCC V28) Encounter for screening for infectious and parasitic diseases, unspecified Encounter for screening for infections with a predominantly sexual mode of transmission Encounter for screening for cardiovascular disorders Encounter for screening for other suspected endocrine disorder COMPREHENSIVE METABOLIC PANEL Routine 03/20/2025 2:48 PM EDT Type 2 diabetes mellitus with hyperglycemia (CMS/HCC V24, CMS/HCC V28) Encounter for screening for infectious and parasitic diseases, unspecified Encounter for screening for infections with a predominantly sexual mode of transmission Encounter for screening for cardiovascular disorders Encounter for screening for other suspected endocrine disorder documented in this encounter Results * Treponema pallidum antibody with reflex to RPR and particle agglutination (03/20/2025 2:48 PM EDT) T. Pallidum Antibodies Negative Negative LAB CHEMISTRY METHOD 03/20/2025 5:45 PM EDT [facility] Blood Venous blood specimen / Unknown 03/20/2025 2:48 PM EDT 03/20/2025 5:45 PM EDT [facility] [employer] ADMINISTRATOR LAB BLOOD ORDERABLES Final Result [facility] [address] [place] [address], [place] [phone] * SST tube (03/20/2025 2:48 PM EDT) Pathologist [facility] Extra Tube Hold for add-ons. 03/20/2025 6:01 PM EDT [facility] Comment:Auto resulted. Blood Venous blood specimen / Unknown 03/20/2025 2:48 PM EDT 03/20/2025 4:50 PM EDT [facility] Mcgill [employer] SYSTEM[employer] ADMINISTRATOR LAB BLOOD ORDERABLES Final Result Performing Organization Address City/[facility]/ZIP Co de Phone Number [facility] [address] [place] [address], [place] [phone] * (ABNORMAL) Hemoglobin A1c (03/20/2025 2:48 PM EDT) Hemoglobin A1C 7.1(H) <6.5 % LAB CHEMISTRY METHOD 03/21/2025 11:33 AM EDT [facility] Mean Bld Glu Estim. 157 mg/dL LAB CHEMISTRY METHOD 03/21/2025 11:33 AM EDT [facility] Blood Venous blood specimen / Unknown 03/20/2025 2:48 PM EDT 03/20/2025 4:46 PM EDT Eddieliza Casionan [employer] SYSTEM[employer] ADMINISTRATOR LAB BLOOD ORDERABLES Final Result Performing Organization Address [facility]/ZIP Co de Phone Number [facility] [address] [place] [address], [place] [phone] * Microalbumin creatinine urine ratio (03/20/2025 2:48 PM EDT) Creatinine, Urine 375.0 mg/dL LAB CHEMISTRY METHOD 03/20/2025 5:57 PM EDT [facility] Microalb, Ur 27.8 0.0 - 29.0 mg/L LAB CHEMISTRY METHOD 03/20/2025 5:57 PM EDT [facility] Microalb/Creat Ratio 7 <30 mg/g creat LAB CHEMISTRY METHOD 03/20/2025 5:57 PM EDT [facility] Urine Urine specimen obtained by clean catch procedure / Unknown 03/20/2025 2:48 PM EDT 03/20/2025 4:46 PM EDT Eddieliza Gregorionan [employer] ADMINISTRATOR LAB URINE ORDERABLES Final Result Performing Organization Address [facility] de Phone Number [facility] [address] [place] [address], [place] [phone] * Hepatitis C antibody (03/20/2025 2:48 PM EDT) Hepatitis C Antibody Negative Negative LAB CHEMISTRY METHOD 03/20/2025 8:44 PM EDT [facility] Blood Venous blood specimen / Unknown 03/20/2025 2:48 PM EDT 03/20/2025 4:46 PM EDT Eddieliza Casionan [employer] ADMINISTRATOR LAB BLOOD ORDERABLES Final Result [facility] [address] [place] [address], [place] [phone] * (ABNORMAL) Comprehensive metabolic panel (03/20/2025 2:48 PM EDT) [facility] Signature Sodium 138 133 - 145 mmol/L LAB CHEMISTRY METHOD 03/20/2025 6:19 PM [facility] Potassium 4.1 3.5 - 5.5 mmol/L LAB CHEMISTRY METHOD 03/20/2025 6:19 PM [facility] Chloride 103 96 - 110 mmol/L LAB CHEMISTRY METHOD 03/20/2025 6:19 PM [facility] CO2 30 21 - 32 mmol/L LAB CHEMISTRY METHOD 03/20/2025 6:19 PM [facility] Anion Gap 5 3 - 11 LAB CHEMISTRY METHOD 03/20/2025 6:19 PM [facility] Glucose 157(H) 70 - 100 mg/dL LAB CHEMISTRY METHOD 03/20/2025 6:19 PM [facility] BUN 11 5 - 25 mg/dL LAB CHEMISTRY METHOD 03/20/2025 6:19 PM [facility] Creatinine 1.03 0.70 - 1.30 mg/dL LAB CHEMISTRY METHOD 03/20/2025 6:19 PM [facility] eGFR 92 >=60 mL/min/1. 73m2 LAB CHEMISTRY METHOD 03/20/2025 6:19 PM [facility] Comment:Calculation based on the Chronic Kidney Disease Epidemiology Collaboration (CKD-EPI) equation refit without adjustment for race. BUN/Creatinine Ratio 10.7 LAB CHEMISTRY METHOD 03/20/2025 6:19 PM [facility] Calcium 8.8 8.5 - 10.5 mg/dL LAB CHEMISTRY METHOD 03/20/2025 6:19 PM [facility] AST (SGOT) 24 10 - 42 unit/L LAB CHEMISTRY METHOD 03/20/2025 6:19 PM EDT [facility] ALT (SGPT) 53 10 - 60 unit/L LAB CHEMISTRY METHOD 03/20/2025 6:19 PM EDT [facility] Alkaline Phosphatase 120 42 - 121 unit/L LAB CHEMISTRY METHOD 03/20/2025 6:19 PM EDT [facility] Total Protein 7.7 6.0 - 8.0 g/dL LAB CHEMISTRY METHOD 03/20/2025 6:19 PM EDT [facility] Albumin 4.1 3.2 - 5.0 g/dL LAB CHEMISTRY METHOD 03/20/2025 6:19 PM EDT [facility] Total Bilirubin 0.4 0.0 - 1.4 mg/dL LAB CHEMISTRY METHOD 03/20/2025 6:19 PM EDT [facility] Blood Venous blood specimen / Unknown 03/20/2025 2:48 PM EDT 03/20/2025 4:46 PM EDT Eddielikwabena Mcgill [employer]UX SYSTEM[employer] ADMINISTRATOR LAB BLOOD ORDERABLES Final Result [facility] [address] [place] [address], [place] [phone] * Thyroid stimulating hormone with reflex to free t4 and free t3 (03/20/2025 2:48 PM EDT) TSH 1.48 0.40 - 4.00 mcIU/mL LAB CHEMISTRY METHOD 03/20/2025 10:09 PM EDT [facility] Blood Venous blood specimen / Unknown 03/20/2025 2:48 PM EDT 03/20/2025 4:46 PM EDT Eddielikwabena Heardan [employer]UX SYSTEM[employer] ADMINISTRATOR LAB BLOOD ORDERABLES Final Result [facility] [address] [place] [address], [place] [phone] * (ABNORMAL) Lipid panel with reflex to direct LDL (03/20/2025 2:48 PM EDT) Cholesterol 189 0 - 200 mg/dL LAB CHEMISTRY METHOD 03/20/2025 6:19 PM EDT [facility] Triglycerides 205(H) 0 - 150 mg/dL LAB CHEMISTRY METHOD 03/20/2025 6:19 PM EDT [facility] HDL 43 >=40 mg/dL LAB CHEMISTRY METHOD 03/20/2025 6:19 PM EDT [facility] LDL Calculated 105(H) 0 - 100 mg/dL LAB CHEMISTRY METHOD 03/20/2025 6:19 PM EDT [facility] VLDL Cholesterol Clint 41 mg/dL LAB CHEMISTRY METHOD 03/20/2025 6:19 PM EDT [facility] Non HDL Chol. (LDL+VLDL) 146(H) <145 mg/dL LAB CHEMISTRY METHOD 03/20/2025 6:19 PM EDT [facility] Chol/HDL Ratio 4.4 0.0 - 4.4 LAB CHEMISTRY METHOD 03/20/2025 6:19 PM EDT [facility] Blood Venous blood specimen / Unknown 03/20/2025 2:48 PM EDT 03/20/2025 4:46 PM EDT Prasanth Mcgill LINUX SYSTEM[employer] ADMINISTRATOR LAB BLOOD ORDERABLES Final Result [facility] [address] [place] [address], [place] [phone] * HIV 1,2 antibody, p24 antigen with reflex to differentiation (03/20/2025 2:48 PM EDT) Pathologist [facility] HIV Combo AB/AG Negative Negative LAB CHEMISTRY METHOD 03/20/2025 8:45 PM EDT [facility] Blood Venous blood specimen / Unknown 03/20/2025 2:48 PM EDT 03/20/2025 4:46 PM EDT Narrative [facility] - 03/20/2025 8:45 PM EDT This assay is a 4th generation assay allowing for earlier detection of HIV infection by detecting the presence of the HIV-1 p24 antigen as well as the traditional antibodies to HIV type 1 (including group O) and type 2. Use of a 4th generation assay is the current CDC recommendation for HIV screening. [email or web address] LINUX SYSTEMS ADMINISTRATOR LAB BLOOD ORDERABLES Final Result Performing Organization Address City/[facility]/ZIP Co de Phone Number [facility] [address] [place] [address], [place] [phone] * Hepatitis B surface antigen with reflex to confirmation (03/20/2025 2:48 PM EDT) Hepatitis B Surface Ag Negative Negative LAB CHEMISTRY METHOD 03/20/2025 8:16 PM EDT [facility] Blood Venous blood specimen / Unknown 03/20/2025 2:48 PM EDT 03/20/2025 4:46 PM EDT Narrative [facility] - 03/20/2025 8:16 PM EDT Over the counter supplements containing high doses of biotin may interfere with this assay. If interference is suspected, patients shoud be retested after refraining from biotin supplements for 72 hours. EdBjondan LINUX SYSTEMS ADMINISTRATOR LAB BLOOD ORDERABLES Final Result Performing Organization Address [facility]/ZIP Co de Phone Number [facility] [address] [place] [address], [place] [phone] * (ABNORMAL) Hepatitis B surface antibody (03/20/2025 2:48 PM EDT) Hepatitis B Surface Ab Positive (A) Negative LAB CHEMISTRY METHOD 03/20/2025 8:06 PM EDT [facility] Hepatitis B Surface Ab Quantitative 177.6 mIU/mL LAB CHEMISTRY METHOD 03/20/2025 8:06 PM EDT [facility] Blood Venous blood specimen / Unknown 03/20/2025 2:48 PM EDT 03/20/2025 4:46 PM EDT Narrative [facility] - 03/20/2025 8:06 PM EDT >=10 mIU/mL is considered to be consistent with immunity. EddieliScytlionan LINUX SYSTEM[employer] ADMINISTRATOR LAB BLOOD ORDERABLES Final Result Performing Organization Address City/[facility]/ZIP Co de Phone Number [facility] [address] [place] [address], [place] [phone] * Hepatitis B core antibody, total (03/20/2025 2:48 PM EDT) Hep B Core Total Ab Negative Negative LAB CHEMISTRY METHOD 03/20/2025 8:45 PM EDT [facility] Blood Venous blood specimen / Unknown 03/20/2025 2:48 PM EDT 03/20/2025 4:46 PM EDT EddiSmartOn Learningionan LIN[employer] SYSTEM[employer] ADMINISTRATOR LAB BLOOD ORDERABLES Final Result Performing Organization Address City/[facility]/ZIP Co de Phone Number [facility] [address] [place] [address], [place] [phone] * (ABNORMAL) Complete blood count (03/20/2025 2:48 PM EDT) WBC 5.3 4.8 - 10.8 K/[facility] LAB HEMETOLOGY METHOD 03/20/2025 5:08 PM EDT [facility] RBC 5.40 4.50 - 5.50 M/mcL LAB HEMETOLOGY METHOD 03/20/2025 5:08 PM EDT [facility] Hemoglobin 14.9 13.5 - 17.5 g/dL LAB HEMETOLOGY METHOD 03/20/2025 5:08 PM EDT [facility] Hematocrit 44.2 42.0 - 54.0 % LAB HEMETOLOGY METHOD 03/20/2025 5:08 PM EDT [facility] MCV 82.3 79.0 - 98.0 FL LAB HEMETOLOGY METHOD 03/20/2025 5:08 PM EDT [facility] MCH 27.7 27.0 - 32.0 pcg LAB HEMETOLOGY METHOD 03/20/2025 5:08 PM EDT [facility] MCHC 33.7 32.0 - 37.0 g/dL LAB HEMETOLOGY METHOD 03/20/2025 5:08 PM EDT [facility] RDW 12.2 11.0 - 15.0 % LAB HEMETOLOGY METHOD 03/20/2025 5:08 PM EDT [facility] Platelets 207 130 - 400 K/mcL LAB HEMETOLOGY METHOD 03/20/2025 5:08 PM EDT [facility] MPV 11.5(H) 7.0 - 11.0 FL LAB HEMETOLOGY METHOD 03/20/2025 5:08 PM EDT [facility] NRBC 0.0 <1.0 % LAB HEMETOLOGY METHOD 03/20/2025 5:08 PM EDT [facility] NRBC Absolute 0.00 <0.10 K/mcL LAB HEMETOLOGY METHOD 03/20/2025 5:08 PM EDT [facility] Blood Venous blood specimen / Unknown 03/20/2025 2:48 PM EDT 03/20/2025 4:46 PM EDT us Eddielikwabena Mcgill LINUX SYSTEMS ADMINISTRATOR LAB BLOOD ORDERABLES Final Result [facility] [address] [place] [address], [place] [phone] documented in this encounter Visit Diagnoses Diagnosis Type 2 diabetes mellitus with hyperglycemia ([facility] V24, [facility] V28) Encounter for screening for infectious and parasitic diseases, unspecified Encounter for screening for infections with a predominantly sexual mode of transmission Encounter for screening for cardiovascular disorders Encounter for screening for other suspected endocrine disorder documented in this encounter Care Teams Service Greeter Relationship Specialty Start Date End Date Physician, Pcp Unknown PCP - General 03/20/25 documented as of this encounter
--- OUTSIDE RECORDS SUMMARY | 2025-07-30 16:09 | XMS_ITS | Clinical Summary ---
[facility] Address [address] [place] [address] Phone Care Team Providers Care Surgical Dental Assistant Name Role Phone Neela Andres Primary Care Provider [phone] Allergies Active Allergy Reactions Criticality Noted Date Comments Fish Allergy 06/17/2024 Medications * This document contains information received from the source organization and may not represent a complete record from that organization. methocarbamol (ROBAXIN) 750 MG tablet Take 1 tablet (750 mg) by mouth three times a day as needed for muscle spasms 30 tablet 06/17/2024 Active prazosin (MINIPRESS) 1 MG capsule Take 1 mg by mouth nightly 2024 Active omeprazole (PriLOSEC) 20 MG capsule Take 20 mg by mouth daily 03/16/2024 Active metFORMIN (GLUCOPHAGE) 500 MG tablet 500 mg 04/06/2023 Activ e lisinopril (PRINIVIL,ZESTR IL) 10 MG tablet Take 10 mg by mouth daily 05/18/2024 Active doxepin (SINEquan) 25 MG capsule Take 25 mg by mouth nightly 05/18/2024 Active cloNIDine (CATAPRES) 0.2 MG tablet Take 0.2 mg by mouth nightly 05/18/2024 Active buPROPion XL (WELLBUTRIN XL) 300 MG 24 hr tablet Take 300 mg by mouth daily 05/18/2024 Active Suboxone 8-[address] 1 Film under the tongue two times a day Active Adderall XR 10 MG 24 hr capsule Take by mouth every morning 02/09/2024 Active gabapentin (NEURONTIN) 300 MG capsule Take 300 mg by mouth three times a day Active Family History Medical History Relation Comments Alcohol use disorder Father Substance use disorder Father Suicide Attempts Father Bipolar disorder Mother Depression Mother Relation Status Comments Brother Father Mother Alive Sister 1 Alive Sister 2 Alive Social History Tobacco Use Types Packs/Day Years Used Date Smoking Tobacco: Every Day Cigarettes Passive Smoke Exposure: Current Smokeless Tobacco: Never Tobacco Cessation:Ready to Q uit: Not Asked; Counseling Given: Not Answered Sex and Gender Information Value Date Recorded Sex Assigned at Not on file Legal Sex Male 9:21 AM EDT Gender Identity Not on file Sexual Orientation Not on file Last Filed Vital Signs Vital Sign Reading Time Taken Comments Blood Pressure 134/92 06/21/2024 9:46 AM EDT Pulse 72 06/21/2024 9:46 AM EDT Temperature 36.3 C (97.3 F) 06/17/2024 1:56 PM EDT Respiratory Rate 16 06/21/2024 9:46 AM EDT Oxygen Saturation 99% 06/21/2024 9:46 AM EDT Inhaled Oxygen Concentration - - Weight 106.6 kg (235 lb) 06/17/2024 9:29 AM EDT Height 177.8 cm (5' 10 ) 06/17/2024 9:29 AM EDT Body Mass Index 33.72 06/17/2024 9:29 AM EDT Plan of Treatment Health Maintenance Due Date Last Done Comments [facility] Topic HIV Screening 1981 [facility] Topic Hepatitis C Screening 1981 [facility] Topic PSA 1981 [facility] Topic Tdap Vaccine (1 - Tdap) 2000 [facility] Topic Lipid Profile 5 years 2003 [facility] Topic Influenza (Flu) Seasonal (#1) 2025 [facility] Topic Shingrix (1 of 2) 2031 [facility] Topic HIB Vaccines Aged Out No longer eligible based on patient's age to complete this topic [facility] Topic HPV Vaccines Aged Out No longer eligible based on patient's age to complete this topic Insurance [employer] OTHER [employer] Care Teams Surgical Dental Assistant Relationship Specialty Start Date End Date Neela Andres [address] [place] [address] [phone] PCP - General Internal Medicine 06/17/24
--- OUTSIDE RECORDS SUMMARY | 2025-07-30 16:09 | XMS_ITS | Clinical Summary ---
Author Organization [address] Address [address] [place] [phone] Phone Care Team Providers Care Rotary Saw Operator Name Role Phone Physician, Pcp Unknown Primary Care Provider Francesca vailable Social History Tobacco Use Types Packs/Day Years Used Date Smoking Tobacco: Never Assessed Sex and Gender Information Value Date Recorded Sex Assigned at Not on file Legal Sex Male 4:34 PM EDT Gender Identity Not on file Sexual Orientation Not on file Plan of Treatment Health Maintenance Due Date Last Done Comments DTaP,Tdap,and Td Vaccines (1 - Tdap) 2000 Hepatitis B Vaccines (1 of 3 - 19+ 3-dose series) 2000 Pneumococcal Vaccine: Pediat rics (0 to 5 Years) and At-Risk Patients (6 to 49 Years) (1 of 2 - PCV) 2000 Depression Screening 11/20/2024 Social Influencers of Health Screening 03/21/2025 COVID-19 Vaccine (1 - 2023-2 5 season) 2025 Influenza Vaccine (#1) 2025 Cholesterol Screening (Lipid Panel) 03/20/2030 03/20/2025 HIV Screening Completed 03/20/2025 Hepatitis C Screening Completed 03/20/2025 HIB Vaccines Aged Out No longer eligi ble based on patient's age to complete this topic HPV Vaccines Aged Out No longer eligi ble based on patient's age to complete this topic Hepatitis A Vaccines Aged Out No long er eligible based on patient's age to complete this topic IPV Vaccines Aged Out No longer eligi ble based on patient's age to complete this topic MMR Vaccines Aged Out No longer eligi ble based on patient's age to complete this topic Meningococcal ACWY Vaccine Aged Out N o longer eligible based on patient's age to complete this topic Meningococcal B Vaccine Aged Out No l onger eligible based on patient's age to complete this topic RSV Immunization Patients Un brice 20 months Aged Out No longer eligible b ased on patient's age to complete this topic Varicella Vaccines Aged Out No longer eligible based on patient's age to complete this topic Procedures Procedure Name Priority Date/Time Associated Diagnosis Comments HEPATITIS C ANTIBODY Routine 03/20/2025 2:48 PM EDT Type 2 diabetes mellitus with hyperglycemia ([facility] V24, [facility] V28) Encounter for screening for infectious and parasitic diseases, unspecified Encounter for screening for infections with a predominantly sexual mode of transmission Encounter for screening for cardiovascular disorders Encounter for screening for other suspected endocrine disorder HIV 1, 2 ANTIBODY, P24 ANTIGEN WITH REFLEX TO DIFFERENTIATION Routine 03/20/2025 2:48 PM EDT Type 2 diabetes mellitus with hyperglycemia ([facility] V24, [facility] V28) Encounter for screening for infectious and parasitic diseases, unspecified Encounter for screening for infections with a predominantly sexual mode of transmission Encounter for screening for cardiovascular disorders Encounter for screening for other suspected endocrine disorder LIPID PANEL WITH REFLEX TO DIRECT LDL Routine 03/20/2025 2:48 PM EDT Type 2 diabetes mellitus with hyperglycemia ([facility] V24, [facility] V28) Encounter for screening for infectious and parasitic diseases, unspecified Encounter for screening for infections with a predominantly sexual mode of transmission Encounter for screening for cardiovascular disorders Encounter for screening for other suspected endocrine disorder from Last 3 Months or Most Recently Relevant to Health Maintenance Results * Hepatitis C antibody (03/20/2025 2:48 PM EDT) Hepatitis C Antibody Negative Negative LAB CHEMISTRY METHOD 03/20/2025 8:44 PM EDT [facility] Blood Venous blood specimen / Unknown 03/20/2025 2:48 PM EDT 03/20/2025 4:46 PM EDT us Prasanth Mcgill NP LAB BLOOD ORDERABLES Final Result [facility] [address] [place] [address], [place] [phone] * HIV 1,2 antibody, p24 antigen with reflex to differentiation (03/20/2025 2:48 PM EDT) [facility] HIV Combo AB/AG Negative Negative LAB CHEMISTRY METHOD 03/20/2025 8:45 PM EDT [facility] Blood Venous blood specimen / Unknown 03/20/2025 2:48 PM EDT 03/20/2025 4:46 PM EDT [facility] - 03/20/2025 8:45 PM EDT This assay is a 4th generation assay allowing for earlier detection of HIV infection by detecting the presence of the HIV-1 p24 antigen as well as the traditional antibodies to HIV type 1 (including group O) and type 2. Use of a 4th generation assay is the current CDC recommendation for HIV screening. Prasanth Mcgill NP LAB BLOOD ORDERABLES Final Result [facility] [address] [place] [address], [place] [phone] * (ABNORMAL) Lipid panel with reflex to direct LDL (03/20/2025 2:48 PM EDT) [facility] Cholesterol 189 0 - 200 mg/dL LAB CHEMISTRY METHOD 03/20/2025 6:19 PM EDT [facility] Triglycerides 205(H) 0 - 150 mg/dL LAB CHEMISTRY METHOD 03/20/2025 6:19 PM EDT [facility] HDL 43 >=40 mg/dL LAB CHEMISTRY METHOD 03/20/2025 6:19 PM EDT [facility] LDL Calculated 105(H) 0 - 100 mg/dL LAB CHEMISTRY METHOD 03/20/2025 6:19 PM T [facility] VLDL Cholesterol Clint 41 mg/dL LAB CHEMISTRY METHOD 03/20/2025 6:19 PM EDT [facility] Non HDL Chol. (LDL+VLDL) 146(H) <145 mg/dL LAB CHEMISTRY METHOD 03/20/2025 6:19 PM EDT [facility] Chol/HDL Ratio 4.4 0.0 - 4.4 LAB CHEMISTRY METHOD 03/20/2025 6:19 PM EDT [facility] Blood Venous blood specimen / Unknown 03/20/2025 2:48 PM EDT 03/20/2025 4:46 PM EDT us Prasanth Mcgill [employer] LAB BLOOD ORDERABLES Final Result [facility] [address] [place] [address], from Last 3 Months or Most Recently Relevant to Health Maintenance Insurance MEDICAID - [place] Care Teams Rotary Saw Operator Relationship Specialty Start Date End Date Physician, Pcp Unknown PCP - General 03/20/25
--- OUTSIDE RECORDS SUMMARY | 2025-07-30 16:09 | XMS_ITS | Clinical Summary ---
Author Organization [facility] Address [address] [place] [address] Care Team Providers Care Assembler Clip On Sunglasses Name Role Phone Dania Goel ISAAC Primary Care Provider [phone] Allergies No known active allergies Medications gabapentin 300 MG capsule Take 1 capsule (300 mg total) by mouth 3 (three) times a day 3 Active cloNIDine (CATAPRES) 0.1 MG tablet Take 1 tablet (0.1 mg total) by mouth 3 (three) times a day as needed for anxiety Active metoprolol succinate (TOPROL XL) 50 MG extended release tablet Take 1 tablet (50 mg total) by mouth daily Active prazosin (MINIPRESS) 2 MG capsule Take 1 capsule (2 mg total) by mouth at bedtime Active acetaminophen 500 MG tablet Take 1 tablet (500 mg total) by mouth every 6 (six) hours as needed for mild pain (1-3) or fever Active buprenorphine-n aloxone 8-2 MG per sublingual film Place 1 Film under the tongue 2 (two) times a day Active senna (SENOKOT) 8.6 MG tablet Take 2 tablets (17.2 mg total) by mouth at bedtime as needed for constipation Active metFORMIN 500 MG tablet Take 1 tablet (500 mg total) by mouth daily with breakfast Active traZODone 50 MG tablet Take 1 tablet (50 mg total) by mouth at bedtime as needed for sleep Active buPROPion (WELLBUTRIN SR) 150 MG extended release 12 hr tablet (SR) Take 1 tablet (150 mg total) by mouth 2 (two) times a day Active doxepin 50 MG capsule Take 1 capsule (50 mg total) by mouth at bedtime Active buPROPion 150 MG extended release 12 hr tablet (SR) Take 1 tab TWICE A DAY for Major depressive disorder,recurre nt severe without psychotic features 28 tablet 10/23/2024 9:57 AM EST 4 Active gabapentin 600 MG tablet Take 1 tab THREE TIMES A DAY for neuropathic pain 90 tablet 10/23/2024 9:57 AM EST 4 Active lidocaine 5 % patch Place 1 patch to the affected area daily at 9pm for pain 14 patch 10/23/2024 9:57 AM EST 4 Active traZODone 50 MG tablet Take 1 tablet by mouth at bedtime as needed for sleep 14 tablet 10/23/2024 9:57 AM EST 4 Active cloNIDine (CATAPRES) 0.1 MG tablet Take 1 tablet twice daily as needed for post-traumatic stress disorder,chronic 60 tablet 10/23/2024 9:57 AM EST 4 Active doxepin 50 MG capsule Take 1 cap at bedtime for major depressive disorder,recurre nt severe without psychotic features 14 capsule 10/23/2024 9:57 AM EST 4 Active meloxicam 15 MG tablet Take 1 tablet by mouth once daily for back pain 30 tablet 10/23/2024 9:57 AM EST 4 Active metFORMIN 500 MG tablet Take 1 tablet by mouth once daily for diabetes 30 tablet 10/23/2024 9:57 AM EST 4 Active methocarbamol 750 MG tablet Take 1 tablet by mouth 3 times daily As Needed for muscle spasms 42 tablet 10/23/2024 9:57 AM EST 4 Active metoprolol succinate 50 MG extended release tablet Take 1 tablet by mouth once daily for High Blood pressure 14 tablet 10/23/2024 9:57 AM EST 4 Active prazosin (MINIPRESS) 2 MG capsule Take 1 capsule by mouth at bedtime for Post-traumatic stress disorder,chronic 14 capsule 10/23/2024 9:57 AM EST 4 Active sertraline (ZOLOFT) 50 MG tablet Take 1 tablet by mouth daily for depression 14 tablet 10/23/2024 9:57 AM EST 4 Active buprenorphine-n aloxone (SUBOXONE) 8-2 MG per sublingual film Dissolve 1 film under the tongue twice daily 28 each 10/23/2024 9:57 AM EST 4 Active menthol-methyl salicylate (MUSCLE RUB) 10-15 % cream Apply topically 85 g 10/23/2024 9:57 AM EST 4 Active sennosides (SENOKOT EXTRA STRENGTH) 17.2 MG tablet Take 1 tab AT BEDTIME As Needed for Constipation 30 each 10/23/2024 9:57 AM EST 4 Active naloxone 4 mg/0.1 mL nasal spray liquid Take 1 SPRAY Nasal DIRECTED As Needed for overdose 4 each 3 10/23/2024 9:57 AM EST 4 Active Active Problems Problem Noted Date Diagnosed Date Suicidal ideation 10/12/2024 Social History Tobacco Use Types Packs/Day Years Used Date Smoking Tobacco: Never Assessed Sex and Gender Information Value Date Recorded Sex Assigned at Not on file Legal Sex Male 9:58 AM EDT Gender Identity Not on file Sexual Orientation Not on file Last Filed Vital Signs Vital Sign Reading Time Taken Comments Blood Pressure 157/85 10/14/2024 10:44 AM EST Pulse 69 10/14/2024 10:44 AM EST Temperature 36.4 C (97.6 F) 10/14/2024 5:56 AM EST Respiratory Rate 18 10/14/2024 10:44 AM EST Oxygen Saturation 100% 10/14/2024 10:44 AM EST Inhaled Oxygen Concentration - - Weight 109 kg (240 lb) 10/12/2024 4:47 PM EST Height 177.8 cm (5' 10 ) 10/12/2024 4:47 PM EST Body Mass Index 34.44 10/12/2024 4:47 PM EST Plan of Treatment Not on file Insurance [facility] Advance Directives For more information, please contact: [phone] * Full Code (Latest Code Status on File) Date Activated Date Inactivated Comments 10/12/2024 7:56 PM 10/14/2024 2:15 PM Care Teams Assembler Clip On Sunglasses Relationship Specialty Start Date End Date Dania Goel NP [address] [place] [phone] PCP - General Addiction Medicine 10/12/24
--- NOTE | 2025-07-30 16:41 | ECG_ITS ---
Test Reason : CP Blood Pressure : */* mmHG Vent. Rate : 64 BPM Atrial Rate : 64 BPM P-R Int : 154 ms QRS Dur : 94 ms QT Int : 392 ms P-R-T Axes : 34 16 28 degrees QTcB Int : 404 ms Normal sinus rhythm Normal ECG When compared with ECG of 30-Jul-2025 13:20, No significant change was found Referred By: Wesley Mcdonald Electronically Signed By: RACHEL THOMPSON MD
[2025-07-30] MEDS: Nitroglycerin 2 % Oint 1 GM Packet 1 INCH TRANSDERMA (17:04)
--- NOTE | 2025-07-30 17:20 | PM.IMHP ---
History of Present Illness Date of Service: 07/30/25 Chief Complaint: chest pain 45M PMH dm, htn, mild intermittent asthma, chronic back pain, polysubstance dependence, obesity, mood disorder presented with chest pain. patient states his blood pressure has been high last 2 days. thinks he was missing his amlodipine. started on lisinopril, but previously had dry cough from narcisa-i, was at a day program and started having chest pressure, diaphroesis, noted high blood pressure so came to ED. in ED trop negative, ekg non ischemic, releived by nitro. utox negative for cocaine. Review of Systems Review of Systems: Yes all other systems are reviewed and are negative [facility] Medical History Depression Opioid use disorder Cocaine use disorder PTSD (post-traumatic stress disorder) MDD (major depressive disorder), recurrent episode, moderate Cigarette smoker Polysubstance abuse Hypertension Chronic low back pain Asthma Non-insulin dependent type 2 diabetes mellitus Social History Household Members: None Household Members Other:: Sober House Housing: Homeless Housing Other:: Sober House Do you presently have visiting nurse or other home services: No Alcohol intake: current Alcohol intake frequency: holidays/special occasions only Patient Tobacco Use Status: Tobacco use Unknown Tobacco use type: Cigarette Cigarette Packs Per Day: 0.5 Cigarettes Per Day: 10.0 Years Smoked: 20 Smoked in Last 30 Days: No Second Hand Smoke Exposure: No Use of substances other than those prescribed or required for medical reasons: Yes Substance Use Type: Crack/Cocaine and Heroin Advance Directives: No Advance Directives Information Provided: Yes Do you have a plan to hurt others: No Plan service: No Sexual orientation: Straight/Heterosexual Meds Allergies Allergy/AdvReac Type Severity Reaction Status Date / Time No Known Allergies Allergy Verified 07/30/25 12:48 Active Medications: Current Medications Acetaminophen (Acetaminophen 325 Mg Tablet) 650 mg PO Q6H PRN PRN Reason: Pain, Mild 1-3,fever,headache Calcium Carbonate (Calcium Carbonate 750 Mg Tab.Chew) 750 mg PO Q4H PRN PRN Reason: Heartburn Dextrose (Dextrose 50 % 25 Gm/50 Ml Syringe) 25 gm IVPUSH Q15M PRN; Protocol PRN Reason: per Hypoglycemia Standing Ord. Enoxaparin Sodium (Enoxaparin Sodium 40 Mg/0.4 Ml Syringe) 40 mg SUBCUT Q24H CALLIE Glucose (Glucose Gel 15 Gm Gel..Gram.) 15 gm PO Q15M PRN; Protocol PRN Reason: per Hypoglycemia Standing Ord. Insulin Human Lispro (Insulin Lispro 100 Unit/Ml 3 Ml Vial) 0 unit SUBCUT QIDACHS CALLIE; Protocol Magnesium Hydroxide (Milk Of Magnesia 30 Ml Oral.Susp) 30 ml PO DAILY PRN PRN Reason: Constipation Melatonin (Melatonin 3 Mg Tablet) 6 mg PO BEDTIME PRN PRN Reason: Insomnia Sodium Chloride (0.9 % Sodium Chloride Flush 3 Ml Syringe) 3 ml IVFLUSH QSHIFT CALLIE Physical Exam Vital Signs and Narrative: Vital Signs: Last Vital Signs Temp 98 F 07/30/25 16:56 Pulse 70 07/30/25 17:04 Resp 16 07/30/25 16:56 BP 174/95 H 07/30/25 17:04 Pulse Ox 94 07/30/25 16:56 O2 Del Method Room Air 07/30/25 16:56 BMI result Body Mass Index 38.3 General: AO X 3, no acute distress Resp: CTA bilateral, no accessory muscles used CVS: S1,S2,RRR GI: soft, non tender, non distended Neuro: motor grossly intact, alert Psych: appropriate affect, appropriate insight Results Labs 07/30/25 13:16 07/30/25 13:16 Labs: Laboratory Results - last 24 hr 07/30/25 07/30/25 07/30/25 13:15 13:15 13:16 MCV 79.0 L MCH 27.7 MCHC 35.0 RDW 12.9 Plt Count 209 MPV 10.8 Immature Gran % (Auto) 0.8 H Neut % (Auto) 61.3 Lymph % (Auto) 26.4 [place] % (Auto) 7.3 Eos % (Auto) 3.4 Baso % (Auto) 0.8 Lymph # (Auto) 1.3 [place] # (Auto) 0.4 Eos # (Auto) 0.2 Baso # (Auto) 0.0 Abs Immat Gran (auto) 0.04 H Absolute Neuts (auto) 3.0 Absolute Nucleated RBC 0.000 Nucleated RBC % (auto) 0.0 PT 11.5 INR 1.0 APTT 33.1 D-Dimer High Sensitivty 164 Hold Blue Top SEE NOTE SEE NOTE Anion Gap 11 L Estim Creat Clear Calc 116.4 Estimated GFR > 60 Random Glucose 140 H Calcium 8.6 Magnesium 1.9 Total Bilirubin 0.3 AST 36 ALT 55 H Alkaline Phosphatase 107 B-Natriuretic Peptide 78 Total Protein 7.0 Albumin 4.1 Lipase 10 Urine Color Yellow Urine Appearance Clear Urine pH 7.5 Ur Specific [place] 1.020 Urine Protein Negative Urine Glucose (UA) Negative Urine Ketones Negative Urine Blood Negative Urine Nitrite Negative Ur Leukocyte Esterase Negative Urine Opiates Screen Not Detected Ur Buprenorphine Scrn Positive H Ur Oxycodone Screen Not Detected Urine Methadone Screen Not Detected Urine Fentanyl Screen Not Detected Ur Barbiturates Screen Not Detected Ur Phencyclidine Scrn Not Detected Ur Amphetamines Screen Not Detected U Benzodiazepines Scrn Not Detected Urine Cocaine Screen Not Detected U Marijuana (THC) Screen Not Detected Ethyl Alcohol < 10 Imaging Radiologist's Impressions: Impressions Chest X-Ray 07/30/25 13:00 IMPRESSION: Clear lungs. Electronically signed by: Elias Vaughan MD 07/30/2025 01:08 PM EDT RP Assessment and Plan (1) Chest pain: Status: Acute Plan 45M PMH dm, htn, mild intermittent asthma, chronic back pain, polysubstance dependence, obesity, mood disorder presented with chest pain hypertensive urgency with chest pain continue amlodipnie, clonidine, hctz follow up trop cardio dm insulin mood disorder wellbutrin oebsity weight loss dvt prophylaxis - loveonx full code Quality Stroke Does the patient have a stroke diagnosis?: No VTE Prior VTE?: No VTE Risk Level:: Medical - moderate - high VTE Device Contraindication: Treatment Not Indicated VTE Drug Contraindication: N/A - Med Ordered
--- NOTE | 2025-07-30 18:12 | MHC.EDTECH ---
Patient Belongings in the [facility]. The RN Lizett allow the PT to Keep his Cell phone with him.
[2025-07-30 18:32] LABS: Troponin-I High Sensitivity < 2.7 ng/L (<3.5-35.0)
[2025-07-30 18:38] LABS: Glucose, Whole Blood 160 mg/dL (60-115)
--- NOTE | 2025-07-30 19:07 | PHA.MEDREC ---
Pharmacy Consult ? Medication Reconciliation Pharmacy has completed the medication reconciliation.
[2025-07-30 21:26] LABS: Glucose, Whole Blood 162 mg/dL (60-115)
--- NOTE | 2025-07-30 22:05 | PC.NURSE ---
Addendum entered by Jessica Doyle RN 07/30/25 22:20: pt also refused clonidine as he stated it makes me feel weird. Alejandra LEDEZMA made aware of all above. Original Note: pt reported GANDARA, BP was 130/71. nitropaste removed approx 2130. pt given prn tylenol at this time. bp currently 145/85. pt denies cp/sob. skin wpd. pt medicated per jan.
--- NOTE | 2025-07-30 22:17 | PC.NURSE ---
yimi cost control supervisor Neeta called for an update, made aware pt is admitted to the hospital.
[2025-07-31] VITALS (9 sets, daily range): BP systolic 150–177; BP diastolic 89–105; PULSE 52–89; RESP 15–20; TEMP 36.5–37; O2SAT 95–99
--- NOTE | 2025-07-31 00:22 | PC.NURSE ---
Alejandra LEDEZMA made aware of pt BP and GANDARA present. per PA to give tramadol and IVP Hydralazine.
[2025-07-31] MEDS: 0.9 % Sodium Chloride Flush 3 ML SYRINGE IVFLUSH ×2 (00:50→07:59)
--- NOTE | 2025-07-31 01:57 | PC.NURSE ---
BP improved and GANDARA resolved.
[2025-07-31 04:43] LABS: Hematocrit 40.3 % (42.0-52.0); Hemoglobin 13.4 g/dl (14.0-18.0); Mean Corpuscular HGB Conc 33.3 g/dl (31.0-36.0); Mean Corpuscular Hemoglobin 27.0 pg (27.0-33.0); Mean Corpuscular Volume 81.1 fL (80.0-98.0); NRBC Abs Auto 0.000 X10*3/uL (0.0-0.012); NRBC Pct Auto 0.0 /100WBC (0.0-0.2); Platelet Count 183 X10*3/uL (160-400); Red Blood Count 4.97 X10*6/uL (4.60-5.80); White Blood Count 5.4 X10*3/uL (4.8-10.8)
[2025-07-31 05:11] LABS: Anion Gap 11 (12-20); Blood Urea Nitrogen 13 mg/dL (9-16); Calcium 8.4 mg/dL (8.4-10.2); Carbon Dioxide 28 mmol/L (22-29); Chloride 102 mmol/L (96-108); Creatinine Clr Calc Pharmacy 115.2; Estimated Glomerular Filt Rate > 60; Potassium 3.8 mmol/L (3.3-5.1); Sodium 137 mmol/L (135-145)
[2025-07-31 05:19] LABS: Troponin-I High Sensitivity < 2.7 ng/L (<3.5-35.0)
[2025-07-31 07:51] LABS: Glucose, Whole Blood 155 mg/dL (60-115)
[2025-07-31] MEDS: buPROPion HCl XL 150 MG TAB.ER.24H PO (07:57)
[2025-07-31] MEDS: Dextroamphetamine/Amphetamine XR 10 MG CAP.ER.24H PO (07:57)
--- NOTE | 2025-07-31 09:11 | PM.DS ---
DS: Providers Provider Date of Service: 07/31/25 Date of admission: 07/30/25 17:07 Date of discharge: 07/31/25 Primary care physician: Unknown Physician Consults: 07/30/25 17:08 Consult to Cardiology Routine Consulting Provider: [facility] [place] [facility] Reason for consultation: chest pain Has provider been notified: Yes DS: Diagnosis Discharge Diagnosis (1) Chest pain: Status: Acute DS: Summary Hospital Course Hospital Course: from initial hpi: 45M PMH dm, htn, mild intermittent asthma, chronic back pain, polysubstance dependence, obesity, mood disorder presented with chest pain. patient states his blood pressure has been high last 2 days. thinks he was missing his amlodipine. started on lisinopril, but previously had dry cough from narcisa-i, was at a day program and started having chest pressure, diaphroesis, noted high blood pressure so came to ED. in ED trop negative, ekg non ischemic, releived by nitro. utox negative for cocaine. hospital course: Patient was admitted for hypertensive urgency with chest pain. Was restarted on amlodipine, continued on clonidine and chlorthalidone. And metoprolol. Was seen by Cardiology felt this was unlikely to be ACS recommended starting on Diovan and hydrochlorothiazide. Blood pressure improved and chest pain resolved. For diabetes was continued on insulin. For mood disorder continued on Wellbutrin. For obesity weight loss recommended. Patient is feeling better and will be discharged home. Time Attestation Discharge Coordination Time (in mins): 37 Quality: Safe Use of Opioids Does Pt have an Active Cancer Diagnosis on the Problem List?: No Quality: Stroke Does the patient have a stroke diagnosis?: No Physical Exam Vital Signs: Vital Signs: Last Vital Signs Temp 98.6 F 07/31/25 07:44 Pulse 68 07/31/25 07:57 Resp 18 07/31/25 07:44 BP 150/89 H 07/31/25 07:58 Pulse Ox 95 07/31/25 07:44 O2 Del Method Room Air 07/31/25 07:44 BMI result Body Mass Index 38.3 Exam: General: Awake, alert in no distress Head: Normocephalic, atraumatic EENT: PERRL, Lids normal, sclera normal, conjunctiva normal, nose normal , ears normal, throat without erythema or exudates Neck: Supple, no adenopathy Lung: breath sounds symmetric, no wheezing, rales or rhonchi Chest: symmetric movement, nontender Heart: regular rate and rhythm, normal S1, S2 no murmurs or rubs Abdomen: soft, non-tender, nondistended, normal bowel sounds Back: no vertebral tenderness, no CVAT Extremities: no deformities, moves all extremities symmetrically Neuro: Awake, alert, oriented, normal speech, cranial nerves intact, moves all extremities symmetrically Psych: Pleasant, cooperative DS: Data Data Completed and Pending Labs on day of discharge: Laboratory Results - last 24 hr 07/30/25 07/30/25 07/30/25 13:15 13:15 13:16 WBC 4.9 RBC 4.95 Hgb 13.7 L Hct 39.1 L MCV 79.0 L MCH 27.7 MCHC 35.0 RDW 12.9 Plt Count 209 MPV 10.8 Immature Gran % (Auto) 0.8 H Neut % (Auto) 61.3 Lymph % (Auto) 26.4 [place] % (Auto) 7.3 Eos % (Auto) 3.4 Baso % (Auto) 0.8 Lymph # (Auto) 1.3 [place] # (Auto) 0.4 Eos # (Auto) 0.2 Baso # (Auto) 0.0 Abs Immat Gran (auto) 0.04 H Absolute Neuts (auto) 3.0 Absolute Nucleated RBC 0.000 Nucleated RBC % (auto) 0.0 PT 11.5 INR 1.0 APTT 33.1 D-Dimer High Sensitivty 164 Hold Blue Top SEE NOTE SEE NOTE Sodium 138 Potassium 4.6 D Chloride 104 Carbon Dioxide 28 Anion Gap 11 L BUN 13 Creatinine 0.90 Estim Creat Clear Calc 116.4 Estimated GFR > 60 POC Glucose Random Glucose 140 H Calcium 8.6 Magnesium 1.9 Total Bilirubin 0.3 AST 36 ALT 55 H Alkaline Phosphatase 107 Troponin I High Sens < 2.7 B-Natriuretic Peptide 78 Total Protein 7.0 Albumin 4.1 Lipase 10 Urine Color Yellow Urine Appearance Clear Urine pH 7.5 Ur Specific [place] 1.020 Urine Protein Negative Urine Glucose (UA) Negative Urine Ketones Negative Urine Blood Negative Urine Nitrite Negative Ur Leukocyte Esterase Negative Urine Opiates Screen Not Detected Ur Buprenorphine Scrn Positive H Ur Oxycodone Screen Not Detected Urine Methadone Screen Not Detected Urine Fentanyl Screen Not Detected Ur Barbiturates Screen Not Detected Ur Phencyclidine Scrn Not Detected Ur Amphetamines Screen Not Detected U Benzodiazepines Scrn Not Detected Urine Cocaine Screen Not Detected U Marijuana (THC) Screen Not Detected Ethyl Alcohol < 10 07/30/25 07/30/25 07/30/25 15:26 17:55 18:33 WBC RBC Hgb Hct MCV MCH MCHC RDW Plt Count MPV Immature Gran % (Auto) Neut % (Auto) Lymph % (Auto) [place] % (Auto) Eos % (Auto) Baso % (Auto) Lymph # (Auto) [place] # (Auto) Eos # (Auto) Baso # (Auto) Abs Immat Gran (auto) Absolute Neuts (auto) Absolute Nucleated RBC Nucleated RBC % (auto) PT INR APTT D-Dimer High Sensitivty Hold Blue Top Sodium Potassium Chloride Carbon Dioxide Anion Gap BUN Creatinine Estim Creat Clear Calc Estimated GFR POC Glucose 160 H Random Glucose Calcium Magnesium Total Bilirubin AST ALT Alkaline Phosphatase Troponin I High Sens < 2.7 < 2.7 B-Natriuretic Peptide Total Protein Albumin Lipase Urine Color Urine Appearance Urine pH Ur Specific [place] Urine Protein Urine Glucose (UA) Urine Ketones Urine Blood Urine Nitrite Ur Leukocyte Esterase Urine Opiates Screen Ur Buprenorphine Scrn Ur Oxycodone Screen Urine Methadone Screen Urine Fentanyl Screen Ur Barbiturates Screen Ur Phencyclidine Scrn Ur Amphetamines Screen U Benzodiazepines Scrn Urine Cocaine Screen U Marijuana (THC) Screen Ethyl Alcohol 07/30/25 07/31/25 07/31/25 21:23 04:35 07:42 WBC 5.4 RBC 4.97 Hgb 13.4 L Hct 40.3 L MCV 81.1 MCH 27.0 MCHC 33.3 RDW 12.9 Plt Count 183 MPV 10.3 Immature Gran % (Auto) Neut % (Auto) Lymph % (Auto) [place] % (Auto) Eos % (Auto) Baso % (Auto) Lymph # (Auto) [place] # (Auto) Eos # (Auto) Baso # (Auto) Abs Immat Gran (auto) Absolute Neuts (auto) Absolute Nucleated RBC 0.000 Nucleated RBC % (auto) 0.0 PT INR APTT D-Dimer High Sensitivty Hold Blue Top Sodium 137 Potassium 3.8 Chloride 102 Carbon Dioxide 28 Anion Gap 11 L BUN 13 Creatinine 0.91 Estim Creat Clear Calc 115.2 Estimated GFR > 60 POC Glucose 162 H 155 H Random Glucose 112 Calcium 8.4 Magnesium Total Bilirubin AST ALT Alkaline Phosphatase Troponin I High Sens < 2.7 B-Natriuretic Peptide Total Protein Albumin Lipase Urine Color Urine Appearance Urine pH Ur Specific [place] Urine Protein Urine Glucose (UA) Urine Ketones Urine Blood Urine Nitrite Ur Leukocyte Esterase Urine Opiates Screen Ur Buprenorphine Scrn Ur Oxycodone Screen Urine Methadone Screen Urine Fentanyl Screen Ur Barbiturates Screen Ur Phencyclidine Scrn Ur Amphetamines Screen U Benzodiazepines Scrn Urine Cocaine Screen U Marijuana (THC) Screen Ethyl Alcohol Discharge Plan Discharge Anticipated Discharge Date/Time: 07/31/25 09:08 Patient Disposition: Home, Self-Care Discharge Diagnosis: htn Referrals: Physician,Unknown J [Primary Care Provider, Medical] - 1 Week Discharge Medications: New valsartan-hydrochlorothiazide [Diovan HCT] 80-12.5 mg tablet 1 tab PO DAILY Qty: 90 0RF Continued gabapentin 400 mg Capsule 400 mg PO TID 30 Days Qty: 90 0RF bupropion HCl 100 mg Tablet Sustained-Release 12 Hr 100 mg PO BID 30 Days Qty: 60 0RF clonidine HCl 0.2 mg Tablet 0.2 mg PO BEDTIME 30 Days Qty: 30 0RF buprenorphine-naloxone [Suboxone] 8-2 mg film 1 film sublingual BID 30 Days Qty: 60 0RF metoprolol tartrate 25 mg Tablet 25 mg PO DAILY chlorthalidone 25 mg Tablet 25 mg PO DAILY dextroamphetamine-amphetamine [Adderall XR] 10 mg Capsule,Extended Release 24hr 10 mg PO DAILY metformin 500 mg tablet 500 mg PO BID Changed amlodipine 5 mg tablet 10 mg PO DAILY Qty: 90 0RF Discharge Orders: Discharge Order (Routine); Ordered 07/31/25 Ordered By: Aldo Wells Diet: Low salt diet Activity on Discharge: As tolerated Stand Alone Forms: Patient Portal Discharge page Print Language: Wallisian Care Plan Goals: recovery Health Concerns: bp control Plan of Treatment: restart amlodipnie, starting diovan/hctz Assessment: see above
--- NOTE | 2025-07-31 09:37 | MHC.CM.PN ---
CM addressed FONTENOT with Patient and provided him with the original and a copy will be placed on the chart. Patient's goal is to return to [facility], where he also gets his Suboxone. CM has initiated and will follow for dc planning (Patient may benefit from a Care Team Consult to assist with disposition). Patient is functionally independent and will need assist with transport at time of dc.
--- NOTE | 2025-07-31 09:46 | MHC.CM.PN ---
CM addressed IMM with Patient and provided him with the original and a copy will be placed on the chart. Patient lives in a house with his /HCP/Amber who will transport to home at dc. Home/self care is Patient's goal and CM has initiated and will follow for dc planning. PCP is Dr. GAVIN.
--- NOTE | 2025-07-31 09:58 | PM.CNCAR ---
History of Present Illness History of Present Illness Date of Service: 07/31/25 Requesting physician: Wesley Mcdonald Consult reason: chest pain Chief complaint: Chest pain Narrative: I was consulted to see Floyd in cardiology consultation today for chest pain. Patient is a 45-year-old male a prior history of depression, PTSD as well as substance use disorder currently at a long-term facility for drug detoxification. Patient also history of obesity, diabetes and hypertension. Patient was referred here yesterday because of retrosternal chest pain. He said yesterday he felt funny at low numbness in his head and then had retrosternal chest. She describes a sharp pain. When he came in his blood pressure significantly elevated. How his troponin done serially on arrival as well as EKGs are within normal limits. However due to his risk factors though some concern and he was admitted for observation. He had another episode of chest pain last night with elevated blood pressure. Again the troponin done were negative. Blood pressure today are better but now still within normal range. He does have anymore chest pain. He denied any clear exertional chest pain. His U tox was negative for cocaine. He said that has been recently changes medication. Was prescribed initially clonidine and amlodipine he thinks for his blood pressure be adhesed had clonidine did not make him feel well and this was stopped and he is not sure as to whether this was a recent test. He has been given hydrochlorothiazide. Review of Systems Constitutional: Constitutional: Reports no additional constitutional complaints Eyes: Eyes: Reports no additional eye complaints Cardiovascular: Cardiovascular: Reports chest pain at rest (Sharp pain), Denies lightheadedness, Denies Loss of Consciousness, Denies palpitations, Denies dyspnea and Denies dyspnea on exertion Respiratory: Respiratory: Reports no additional respiratory complaints, Denies dyspnea and Denies dyspnea on exertion Gastrointestinal: Gastrointestinal: Reports no additional gastrointestinal complaints Genitourinary: Genitourinary: Reports no additional male genitourinary complaints Musculoskeletal: Musculoskeletal: Reports no additional musculoskeletal complaints Integumentary/Breasts: Skin/Breast: Reports system reviewed and no additional complaints, except as docu Neurologic: Reports other (Numbness in posterior part of the skull) Endocrine: Endocrine: Denies palpitations [facility] Past Medical History Medical History (Updated 07/31/25 @ 10:04 by Noe Rodriguez MD) Depression Opioid use disorder Cocaine use disorder PTSD (post-traumatic stress disorder) MDD (major depressive disorder), recurrent episode, moderate Cigarette smoker Polysubstance abuse Hypertension Chronic low back pain Asthma Non-insulin dependent type 2 diabetes mellitus Social History Social History Household Members: None Household Members Other:: Sober House Housing: Homeless Housing Other:: Sober House Do you presently have visiting nurse or other home services: No Alcohol intake: current Alcohol intake frequency: holidays/special occasions only Patient Tobacco Use Status: Tobacco use Unknown Tobacco use type: Cigarette Cigarette Packs Per Day: 0.5 Cigarettes Per Day: 10.0 Years Smoked: 20 Smoked in Last 30 Days: No Second Hand Smoke Exposure: No Use of substances other than those prescribed or required for medical reasons: Yes Substance Use Type: Crack/Cocaine and Heroin Advance Directives: No Advance Directives Information Provided: Yes Do you have a plan to hurt others: No Plan service: No Sexual orientation: Straight/Heterosexual Meds Allergies Allergy/AdvReac Type Severity Reaction Status Date / Time No Known Allergies Allergy Verified 07/30/25 12:48 Active Medications: Current Medications Acetaminophen (Acetaminophen 325 Mg Tablet) 650 mg PO Q6H PRN PRN Reason: Pain, Mild 1-3,fever,headache Last Admin: 07/30/25 22:02 Dose: 650 mg Amlodipine Besylate (Amlodipine Besylate 10 Mg Tablet) 10 mg PO DAILY CALLIE; Protocol Last Admin: 07/31/25 07:58 Dose: 10 mg Amphetamine/Dextroamphetamine (Dextroamphetamine/Amphetamine Xr 10 Mg Cap.Er.24h) 10 mg PO DAILY CALLIE Last Admin: 07/31/25 07:57 Dose: 10 mg Buprenorphine/Naloxone (Buprenorphine/Naloxone 8/2 Mg Film) 1 film SUBLINGUAL BID CALLIE Last Admin: 07/31/25 07:58 Dose: 1 film Bupropion HCl (Bupropion Hcl Xl 150 Mg Tab.Er.24h) 150 mg PO DAILY CALLIE Last Admin: 07/31/25 07:57 Dose: 150 mg Calcium Carbonate (Calcium Carbonate 750 Mg Tab.Chew) 750 mg PO Q4H PRN PRN Reason: Heartburn Clonidine HCl (Clonidine Hcl 0.2 Mg Tablet) 0.2 mg PO BEDTIME CALLIE; Protocol Last Admin: 07/30/25 22:03 Dose: Not Given Dextrose (Dextrose 50 % 25 Gm/50 Ml Syringe) 25 gm IVPUSH Q15M PRN; Protocol PRN Reason: per Hypoglycemia Standing Ord. Enoxaparin Sodium (Enoxaparin Sodium 40 Mg/0.4 Ml Syringe) 40 mg SUBCUT Q24H [facility] Last Admin: 07/31/25 07:58 Dose: 40 mg Gabapentin (Gabapentin 400 Mg Capsule) 400 mg PO TID [facility] Last Admin: 07/31/25 07:58 Dose: 400 mg Glucose (Glucose Gel 15 Gm Gel..Gram.) 15 gm PO Q15M PRN; Protocol PRN Reason: per Hypoglycemia Standing Ord. Hydralazine HCl (Hydralazine Hcl 20 Mg/Ml Vial) 5 mg IVPUSH Q6H PRN; Protocol PRN Reason: SBP > 160 Last Admin: 07/31/25 00:49 Dose: 5 mg Hydrochlorothiazide (Hydrochlorothiazide 25 Mg Tablet) 25 mg PO DAILY [facility] Last Admin: 07/31/25 07:57 Dose: 25 mg Insulin Human Lispro (Insulin Lispro 100 Unit/Ml 3 Ml Vial) 0 unit SUBCUT QIDACHS [facility]; Protocol Last Admin: 07/31/25 07:59 Dose: 2 unit Magnesium Hydroxide (Milk Of Magnesia 30 Ml Oral.Susp) 30 ml PO DAILY PRN PRN Reason: Constipation Melatonin (Melatonin 3 Mg Tablet) 6 mg PO BEDTIME PRN PRN Reason: Insomnia Metoprolol Tartrate (Metoprolol Tartrate 25 Mg Tablet) 25 mg PO DAILY [facility]; Protocol Last Admin: 07/31/25 07:57 Dose: 25 mg Sodium Chloride (0.9 % Sodium Chloride Flush 3 Ml Syringe) 3 ml IVFLUSH QSHI Last Admin: 07/31/25 07:59 Dose: 3 ml Home Medications ?Medication ?Instructions ?Recorded ?Confirmed ?Last Taken ?Type chlorthalidone 25 mg tablet 25 mg PO DAILY 07/30/25 07/30/25 Unknown History dextroamphetamine-amphetamine ER 10 mg PO DAILY 07/30/25 07/30/25 Unknown History 10 mg 24hr capsule,extend release (Adderall XR) metformin 500 mg tablet 500 mg PO BID 07/30/25 07/30/25 Unknown History metoprolol tartrate 25 mg tablet 25 mg PO DAILY 07/30/25 07/30/25 Unknown History Physical Exam Vital Signs: Vital Signs: Last Vital Signs Temp 98.6 F 07/31/25 07:44 Pulse 68 07/31/25 07:57 Resp 18 07/31/25 07:44 BP 150/89 H 07/31/25 07:58 Pulse Ox 95 07/31/25 07:44 O2 Del Method Room Air 07/31/25 07:44 BMI result Body Mass Index 38.3 Const: General: cooperative, comfortable, no acute distress, alert and awake Nutritional Appearance: obese Orientation/consciousness: patient oriented x3 Limitations: no limitations HEENT: Head: Yes normocephalic and Yes atraumatic Neck: Neck: Yes trachea midline, Yes supple and Yes no JVD Resp: Effort & Inspection: normal respiratory effort Auscultation: clear to auscultation bilaterally Cardio: Jugular venous distension: no JVD Rate: regular rate Rhythm: regular rhythm Heart sounds: S1 normal heart sound present, S2 normal heart sound present, no click, no gallops, no murmurs and no rubs Skin: General skin exam: no rashes or lesions noted Neuro: General: patient oriented x3 and no focal motor deficits Extrem: General: Yes no clubbing, cyanosis or edema Psych: Appearance: grossly normal Objective Labs and Meds 07/31/25 04:35 07/31/25 04:35 Lab results: Laboratory Results - last 24 hr 07/30/25 07/30/25 07/30/25 13:15 13:15 13:16 WBC 4.9 RBC 4.95 Hgb 13.7 L Hct 39.1 L MCV 79.0 L MCH 27.7 MCHC 35.0 RDW 12.9 Plt Count 209 MPV 10.8 Immature Gran % (Auto) 0.8 H Neut % (Auto) 61.3 Lymph % (Auto) 26.4 [place] % (Auto) 7.3 Eos % (Auto) 3.4 Baso % (Auto) 0.8 Lymph # (Auto) 1.3 [place] # (Auto) 0.4 Eos # (Auto) 0.2 Baso # (Auto) 0.0 Abs Immat Gran (auto) 0.04 H Absolute Neuts (auto) 3.0 Absolute Nucleated RBC 0.000 Nucleated RBC % (auto) 0.0 PT 11.5 INR 1.0 APTT 33.1 D-Dimer High Sensitivty 164 Hold Blue Top SEE NOTE SEE NOTE Sodium 138 Potassium 4.6 D Chloride 104 Carbon Dioxide 28 Anion Gap 11 L BUN 13 Creatinine 0.90 Estim Creat Clear Calc 116.4 Estimated GFR > 60 POC Glucose Random Glucose 140 H Calcium 8.6 Magnesium 1.9 Total Bilirubin 0.3 AST 36 ALT 55 H Alkaline Phosphatase 107 Troponin I High Sens < 2.7 B-Natriuretic Peptide 78 Total Protein 7.0 Albumin 4.1 Lipase 10 Urine Color Yellow Urine Appearance Clear Urine pH 7.5 Ur Specific [place] 1.020 Urine Protein Negative Urine Glucose (UA) Negative Urine Ketones Negative Urine Blood Negative Urine Nitrite Negative Ur Leukocyte Esterase Negative Urine Opiates Screen Not Detected Ur Buprenorphine Scrn Positive H Ur Oxycodone Screen Not Detected Urine Methadone Screen Not Detected Urine Fentanyl Screen Not Detected Ur Barbiturates Screen Not Detected Ur Phencyclidine Scrn Not Detected Ur Amphetamines Screen Not Detected U Benzodiazepines Scrn Not Detected Urine Cocaine Screen Not Detected U Marijuana (THC) Screen Not Detected Ethyl Alcohol < 10 07/30/25 07/30/25 07/30/25 15:26 17:55 18:33 WBC RBC Hgb Hct MCV MCH MCHC RDW Plt Count MPV Immature Gran % (Auto) Neut % (Auto) Lymph % (Auto) [place] % (Auto) Eos % (Auto) Baso % (Auto) Lymph # (Auto) [place] # (Auto) Eos # (Auto) Baso # (Auto) Abs Immat Gran (auto) Absolute Neuts (auto) Absolute Nucleated RBC Nucleated RBC % (auto) PT INR APTT D-Dimer High Sensitivty Hold Blue Top Sodium Potassium Chloride Carbon Dioxide Anion Gap BUN Creatinine Estim Creat Clear Calc Estimated GFR POC Glucose 160 H Random Glucose Calcium Magnesium Total Bilirubin AST ALT Alkaline Phosphatase Troponin I High Sens < 2.7 < 2.7 B-Natriuretic Peptide Total Protein Albumin Lipase Urine Color Urine Appearance Urine pH Ur Specific [place] Urine Protein Urine Glucose (UA) Urine Ketones Urine Blood Urine Nitrite Ur Leukocyte Esterase Urine Opiates Screen Ur Buprenorphine Scrn Ur Oxycodone Screen Urine Methadone Screen Urine Fentanyl Screen Ur Barbiturates Screen Ur Phencyclidine Scrn Ur Amphetamines Screen U Benzodiazepines Scrn Urine Cocaine Screen U Marijuana (THC) Screen Ethyl Alcohol 07/30/25 07/31/25 07/31/25 21:23 04:35 07:42 WBC 5.4 RBC 4.97 Hgb 13.4 L Hct 40.3 L MCV 81.1 MCH 27.0 MCHC 33.3 RDW 12.9 Plt Count 183 MPV 10.3 Immature Gran % (Auto) Neut % (Auto) Lymph % (Auto) [place] % (Auto) Eos % (Auto) Baso % (Auto) Lymph # (Auto) [place] # (Auto) Eos # (Auto) Baso # (Auto) Abs Immat Gran (auto) Absolute Neuts (auto) Absolute Nucleated RBC 0.000 Nucleated RBC % (auto) 0.0 PT INR APTT D-Dimer High Sensitivty Hold Blue Top Sodium 137 Potassium 3.8 Chloride 102 Carbon Dioxide 28 Anion Gap 11 L BUN 13 Creatinine 0.91 Estim Creat Clear Calc 115.2 Estimated GFR > 60 POC Glucose 162 H 155 H Random Glucose 112 Calcium 8.4 Magnesium Total Bilirubin AST ALT Alkaline Phosphatase Troponin I High Sens < 2.7 B-Natriuretic Peptide Total Protein Albumin Lipase Urine Color Urine Appearance Urine pH Ur Specific [place] Urine Protein Urine Glucose (UA) Urine Ketones Urine Blood Urine Nitrite Ur Leukocyte Esterase Urine Opiates Screen Ur Buprenorphine Scrn Ur Oxycodone Screen Urine Methadone Screen Urine Fentanyl Screen Ur Barbiturates Screen Ur Phencyclidine Scrn Ur Amphetamines Screen U Benzodiazepines Scrn Urine Cocaine Screen U Marijuana (THC) Screen Ethyl Alcohol Imaging Radiologist's impression: Impressions Chest X-Ray 07/30/25 13:00 IMPRESSION: Clear lungs. Electronically signed by: Elias Vaughan MD 07/30/2025 01:08 PM EDT RP Assessment and Plan (1) Chest pain: Status: Acute Patient had chest pain which is highly atypical for myocardial ischemia. He does have multiple risk factors although his EKGs and troponins has been negative. He will require eventually to perform a stress test although his blood pressure today is high and I would like his blood pressure is better controlled before we start him on and put him on a treadmill. Also suggest an echocardiogram which can be done as an outpatient. We discussed with him about the nature of chest pain and likelihood of acute coronary syndrome being low. He understands agrees. If his symptoms change his advised to seek emergency care again. (2) Hypertension: Status: Acute Hypertension not completely well controlled. Needs further optimization of blood pressure can be done as outpatient. I would start him on Diovan 80 and hydrochlorothiazide 25 mg as a combination pill. Monitor blood pressure closely at his detox facility. Uptitrate medications as tolerated. Once his blood pressure is better controlled, will perform stress test outpatient. We discussed in details about second-degree modification including low-salt diet and increase fluid intake. Gradually participate in weight loss program should be pursued. Consider home sleep study. Will follow up as outpatient. Thank you for allowing me to partake in his care Procedures Date of Service Date of Service: 07/31/25
--- NOTE | 2025-07-31 11:41 | MHC.CM.PN ---
Patient has been medically cleared for dc to return to [address] at 1:30 PM, via [facility].Patient, RN,MD,CM Directer,Care Team & [facility] ([place] in Intake @ [phone]) are aware of the dc plan.
--- NOTE | 2025-07-31 12:49 | PC.NURSE ---
Attempted to call report to [facility] as pt will be returning back with a p/u time 1330. Was given direct nursing station number [phone] by straw hat washer operator and unavailable to reach nurse. Asked to call back as nurse is passing meds at this time.
--- NOTE | 2025-07-31 13:20 | PC.NURSE ---
Report called to [facility], IV removed per pt request
[2025-07-31 13:31] LABS: Glucose, Whole Blood 186 mg/dL (60-115)
== END 2025-07-31 13:33 ==
LOC: HO.ED 17:10 → HO.EDOVER 17:20
PROVIDERS: Admitting Provider Internal Medicine; Emergency Provider Emergency Medicine Emergency Medical Services; PCP Student in an Organized Health Care Education/Training Program; Visit Provider Internal Medicine
DX: I16.0 Hypertensive urgency (principal); R07.9 Chest pain, unspecified; R11.2 Nausea with vomiting, unspecified; R19.7 Diarrhea, unspecified; R61 Generalized hyperhidrosis; E11.9 Type 2 diabetes mellitus without complications; F39 Unspecified mood [affective] disorder; E66.9 Obesity, unspecified; Z68.38 Body mass index [BMI] 38.0-38.9, adult; K21.9 Gastro-esophageal reflux disease without esophagitis; J45.20 Mild intermittent asthma, uncomplicated; F43.10 Post-traumatic stress disorder, unspecified; F11.90 Opioid use, unspecified, uncomplicated; F14.90 Cocaine use, unspecified, uncomplicated; Z79.899 Other long term (current) drug therapy; Z71.3 Dietary counseling and surveillance
CPT/HCPCS: 36415; 71045; 80048; 80053; 80307; 81003; 82947; 83690; 83735; 83880; 84484; 85025; 85027; 85379; 85610; 85730; 93000; 93005; 96361; 96372; 96374; 96375; 99222; 99285; J0360; J1650; J2405

== ENCOUNTER → 2025-07-30 12:52 | Outpatient (BNV) | payer OTHER, SELFPAY | PROVIDERS: Emergency Provider Emergency Medicine Emergency Medical Services; Visit Provider Radiology Diagnostic Radiology | DX: R07.9 Chest pain, unspecified (principal) | CPT/HCPCS: 71045 ==

== ENCOUNTER → 2025-07-30 17:07 | Outpatient (BNV) | payer MEDICAID, SELFPAY | PROVIDERS: Admitting Provider Internal Medicine; Emergency Provider Emergency Medicine Emergency Medical Services; Visit Provider Internal Medicine | DX: R07.9 Chest pain, unspecified (principal) | CPT/HCPCS: 99223; 99239 ==

== ENCOUNTER → 2025-07-30 17:07 | Outpatient (BNV) | payer MEDICAID, SELFPAY | PROVIDERS: Admitting Provider Internal Medicine; Emergency Provider Emergency Medicine Emergency Medical Services; Visit Provider Internal Medicine Cardiovascular Disease | DX: R07.9 Chest pain, unspecified (principal); I10 Essential (primary) hypertension | CPT/HCPCS: 93010; 99222 ==